=== PATIENT | male | born 1935 | race African-American/Black ===

== ENCOUNTER 2018-05-06 09:26 | Inpatient (IN) | payer OTHER ==
--- NOTE | 2018-05-06 09:41 | PDOC ---
History of Present Illness - General Chief Complaint: Chest Pain Stated Complaint: CHEST PAIN Time Seen by Provider: 05/06/18 09:40 - History of Present Illness Initial Comments: 82 year old male with history of HTN, CAD (stents in 2006 and 2011), and HLD presenting with sudden onset moderate chest pain that has since gotten better but still lingering. He woke up around 8 AM and noticed a central, non- exertional, non-radiating, non-pleuritic chest pain that co-presented with nausea. Denies SOB, lightheadedness, cough, or other symptoms. He has had chest pain like this before. His PCP is Monse and measurement operator is Alex. 05/06/18 13:02 Past History - Past Medical History Allergies/Adverse Reactions: Allergies Allergy/AdvReac Type Severity Reaction Status Date / Time No Known Drug Allergies Allergy Verified 01/10/14 18:26 Home Medications: Ambulatory Orders Aspirin [ASA -] 81 mg PO DAILY 01/10/14 Atorvastatin Ca [Lipitor -] 40 mg PO HS 01/10/14 Bimatoprost [Lumigan] 1 drop IO BID 01/10/14 Brimonidine Tartrate [Alphagan 0.15% -] 1 drop OU BID 01/10/14 Cholecalciferol (Vitamin D3) [Vitamin D-3] 2,000 unit PO DAILY 01/10/14 Dorzolamide HCl/Timolol Maleat [Cosopt Eye Drops] 5 ml OP BID 01/10/14 Losartan Potassium 100 mg PO DAILY 01/10/14 Tamsulosin HCl 0.4 mg PO DAILY 01/10/14 Vitamin A/Vitamin D2 [[place] Cod Liver Oil Sfgl] 1 each PO DAILY 01/10/14 Diltiazem HCl [Diltiazem 24Hr Cd] 120 mg PO DAILY 05/06/18 Metoprolol Succinate 50 mg PO DAILY 05/06/18 Cardiac Disorders: Yes (stents few years ago) COPD: No Diabetes: Yes Disorders: Yes (bph) HTN: Yes Hypercholesterolemia: Yes Other medical history: ENLARGE PROSTATE - Surgical History Cardiac Surgery: Yes (CATH) - Immunization History Td Vaccination: No TDAP Vaccination: No Immunization Up to Date: No (unsure) - Suicide/Smoking/Psychosocial Hx Smoking Status: No Smoking History: Never smoked Number of Cigarettes Smoked Daily: 0 Hx Alcohol Use: No Drug/Substance Use Hx: No Hx Substance Use Treatment: No Review of Systems - Review of Systems Constitutional: No: Chills, Diaphoresis, Fever, Loss of Appetite HEENTM: No: Blurred Vision, Tearing Respiratory: No: Cough, Orthopnea, Shortness of Breath Cardiac (ROS): Yes: Chest Pain. No: Irregular Heart Rate ABD/GI: Yes: Nausea. No: Diarrhea, Vomiting : No: Dysuria, Discharge Integumentary: No: Erythema, Lesions Neurological: No: Headache, Numbness, Paresthesia Psychiatric: No: Anxiety, Depression Hematologic/Lymphatic: No: Anemia, Blood Clots, Easy Bleeding *Physical Exam - Vital Signs Last Vital Signs Temp Pulse Resp BP Pulse Ox 98.1 F 9 L 17 220/112 H 05/06/18 09:30 05/06/18 09:30 05/06/18 09:30 05/06/18 09:30 - Physical Exam General Appearance: Yes: Nourished, Appropriately Dressed. No: Apparent Distress HEENT: positive: EOMI, PATTI, Normal ENT Inspection, Normal Voice Neck: positive: Trachea midline, Normal Thyroid, Supple. negative: Tender, Rigid Respiratory/Chest: positive: Lungs Clear, Normal Breath Sounds. negative: Chest Tender, Respiratory Distress, Accessory Muscle Use Cardiovascular: positive: Regular Rhythm, Regular Rate Gastrointestinal/Abdominal: positive: Normal Bowel Sounds, Flat, Soft. negative : Tender Lymphatic: negative: Adenopathy, Tenderness Musculoskeletal: positive: Normal Inspection. negative: Decreased Range of Motion Extremity: positive: Normal Capillary Refill, Normal Inspection, Normal Range of Motion. negative: Tender Integumentary: positive: Normal Color, Dry, Warm Neurologic: positive: Fully Oriented, Alert, Normal Mood/Affect, Normal Response , Motor Strength 5/5 Moderate Sedation - Procedure Monitoring Vital Signs: Procedure Monitoring Vital Signs Temperature 98.1 F 05/06/18 09:30 Pulse Rate 9 L 05/06/18 09:30 Respiratory Rate 17 05/06/18 09:30 Blood Pressure 220/112 H 05/06/18 09:30 O2 Sat by Pulse Oximetry (%) ED Treatment Course - LABORATORY CBC & Chemistry Diagram: 05/06/18 10:40 05/06/18 10:40 Medical Decision Making - Medical Decision Making 82 year old male with extensive cardiac history and suspicious chest pain story. Patient with very mild chest pain on admission and repeat interview it was resolved. Labs demonstrating CKD and troponemia to 0.07 with EKG showing rate 85, pr 174, qrs 156, [id number] with V2-V3 T wave inversions and old RBBB with St depressions in V4-V6. Repeat troponin 3 hours later demonstrated increased to 1.[address] depression in V4-V6 cleared. We relayed this to the admitting physician Dr. Hernandez and also placed another page/ call to Dr. Johnson. Tentative plan is to heparin drip if Dr. Johnson is unable to be reached. 05/06/18 14:33 Dr. Johnson responded and wants to initiate heparin drip. 05/06/18 16:09 *DC/Admit/Observation/Transfer Diagnosis at time of Disposition: Troponin I above reference range, Chest pain, rule out acute myocardial infarction - Discharge Dispostion Condition at time of disposition: Stable Decision to Admit order: Yes - Referrals - Patient Instructions - Post Discharge Activity
--- NOTE | 2018-05-06 10:06 | PDOC ---
Attending Attestation - Resident Resident Name: Chacorta Desai - ED Attending Attestation I have performed the following: I have examined & evaluated the patient, The case was reviewed & discussed with the resident, I agree w/resident's findings & plan, Exceptions are as noted - HPI HPI: 05/06/18 10:03 82y M history of CAD status post stenting, diabetes, BPH, hypertension, high cholesterol presents with complaint of intermittent chest pain for the past few days. The patient notes that he's had intermittent sharp pressure-like, nonradiating, chest pain lasting approximately 15-20 minutes before resolving for the past several days. Today the pain seemed to be worse than usual so the patient presented for evaluation. The patient denies any associated redness of breath, nausea, vomiting, diaphoresis, palpitations, lightheadedness, diarrhea, BPR, dysuria, back pain, shoulder pain, headache, dizziness. PMD dr. Shea card: Dr. Johnson - Physicial Exam PE: 05/06/18 10:28 GENERAL: The patient is awake, alert, and fully oriented, Nontoxic - in no acute distress. HEAD: Normocephalic, atraumatic. EYES: extraocular movements intact, sclera anicteric, conjunctiva clear. ENT: Normal voice, Moist mucous membranes. NECK: Normal range of motion, supple LUNGS: Breath sounds equal, clear to auscultation bilaterally. No wheezes, no rhonchi, no rales. HEART: Regular rate and rhythm, normal S1 and S2 without murmur, rub or gallop. ABDOMEN: Soft, nontender, No guarding, no rebound. . No CVA tenderness EXTREMITIES: Normal range of motion, pitting edema bl, pulses symmetrical in the radial as well as dp NEUROLOGICAL: No facial assymetry, Normal speech, PSYCH: Normal mood, normal affect. SKIN: Warm, Dry, normal turgor, - Critical Care Time Total Critical Care Time: 45 Critical Care Statement: The care of this patient involved high complexity decision making to prevent further life threatening deterioration of the patient 's condition and/or to evaluate & treat vital organ system(s) failure or risk of failure. - Medical Decision Making 05/06/18 10:29 82-year-old gentleman with multiple medical problems presenting with intermittent episodes of chest pain, she also noted significant hypertensive state that he did not take his blood pressure medicines this morning. No radiation of the pain into the back reveals extremities to suggest dissection. Concern for possible ACS, patient refusing monitoring and evaluation advisor Obtained chest x-ray including lateral, will obtain CBC CMP troponins, give aspirin Will discuss with cardiology We'll give him his by mouth hypertensive medications are blood pressure control <Otoniel Byers - Last Filed: 05/06/18 10:31> - Medical Decision Making Documentation prepared by ISABEL Fair, acting as biomedical equipment tech for Otoniel Byers MD. 05/06/18 21:49 <Inge Bynum - Last Filed: 05/06/18 21:49> Heart Score/ECG Review - ECG Impressions Comment:: 05/06/18 10:31 Twelve-lead EKG was performed and reviewed by me. There is normal sinus rhythm with a normal rate. Rate of 85 Right bundle-branch block T-wave inversions in the anterior leads V1 through V3 twi are new when compared to ekg dated jan 10 2014 <Otoniel Byers - Last Filed: 05/06/18 10:31>
[2018-05-06] MEDS ORDERED: LOSARTAN POTASSIUM 50 MG TABLET (FP) PO ONE (10:07)
[2018-05-06] MEDS ORDERED: ASPIRIN 81 MG CHEWABLE TABLETS PO ONE (10:09)
[2018-05-06] MEDS ORDERED: ASPIRIN 81 MG CHEWABLE TABLETS ONE (10:19)
[2018-05-06 11:08] LABS: BASO % 1.3 % (0-2.0); EOS % 4.7 % (0-4.5); HEMATOCRIT 30.9 % (35.4-49); HEMOGLOBIN 10.4 GM/dL (11.7-16.9); LYMPH % 8.7 % (8-40); MCH 32.1 pg (25.7-33.7); MCHC 33.7 g/dl (32.0-35.9); MEAN CELL VOLUME 95.4 fl (80-96); MEAN PLT VOLUME 8.3 fl (7.5-11.1); MONO % 7.8 % (3.8-10.2); NEUT % 77.5 % (42.8-82.8); PLATELET COUNT 169 K/MM3 (134-434); RBC 3.24 M/mm3 (4.00-5.60); RDW 15.4 % (11.9-15.9)
[2018-05-06 11:11] LABS: URINE APPEARANCE CLEAR; URINE BILIRUBIN NEGATIVE (<2.0 mg/dL); URINE COLOR STRAW; URINE GLUCOSE (UA) NEGATIVE (NEGATIVE); URINE KETONE NEGATIVE (NEGATIVE); URINE LEUK ESTERASE NEGATIVE (NEGATIVE); URINE NITRITE NEGATIVE (NEGATIVE); URINE PROTEIN 2+ (NEGATIVE); URINE UROBILINOGEN NEGATIVE mg/dL (0.2-1.0)
[2018-05-06 11:19] LABS: INR 1.06 (0.83-1.09); PROTHROMBIN TIME (PATIENT) 12.5 SEC (9.7-13.0)
[2018-05-06 11:28] LABS: ALBUMIN 3.7 g/dl (3.4-5.0); ALK PHOS 80 U/L (45-117); ANION GAP 10 MMOL/L (8-16); BILIRUBIN,TOTAL 0.4 mg/dL (0.2-1); BLOOD UREA NITROGEN 45 mg/dL (7-18); CALCIUM 8.3 mg/dL (8.5-10.1); CHLORIDE 113 mmol/L (98-107); CO2 18 mmol/L (21-32); CREATININE 2.9 mg/dL (0.55-1.3); GLUCOSE,RANDOM 96 mg/dL (74-106); MAGNESIUM 1.2 mg/dL (1.8-2.4); N-TERMINAL BNP 1686.2 pg/ml (5-450); PHOSPHOROUS 2.7 mg/dL (2.5-4.9); POTASSIUM 4.7 mmol/L (3.5-5.1); SGOT/AST 14 U/L (15-37); SGPT/ALT 16 U/L (13-61); SODIUM 142 mmol/L (136-145); TOT PROT 7.4 g/dl (6.4-8.2)
[2018-05-06] MEDS ORDERED: MAGNESIUM SULF 50% (8.12 MEQ/2 ML-1 GM VIAL) IVPB ONE ×2 (11:36→11:40)
[2018-05-06 11:41] LABS: URINE BACTERIA RARE /hpf (NONE SEEN); URINE MUCUS RARE
[2018-05-06] MEDS ORDERED: MAGNESIUM 1GM/D5W - 1 GM/100 ML IVPB IVPB ONE (11:49)
--- NOTE | 2018-05-06 15:34 | EKG ---
Test Reason : Blood Pressure : / mmHG Vent. Rate : 085 BPM Atrial Rate : 085 BPM P-R Int : 174 ms QRS Dur : 156 ms QT Int : 408 ms P-R-T Axes : 078 013 013 degrees QTc Int : 485 ms POOR DATA QUALITY, INTERPRETATION MAY BE ADVERSELY AFFECTED NORMAL SINUS RHYTHM RIGHT BUNDLE BRANCH BLOCK INFERIOR INFARCT (CITED ON OR BEFORE 23-SEP-2011) ABNORMAL ECG WHEN COMPARED WITH ECG OF 10-JAN-2014 19:49, VENT. RATE HAS INCREASED BY 35 BPM RIGHT BUNDLE BRANCH BLOCK HAS REPLACED NON-SPECIFIC INTRA-VENTRICULAR CONDUCTION BLOCK Confirmed by LUCIEN ISBELL MD ([id number]) on 05/06/2018 3:33:41 PM Referred By: Confirmed By:LUCIEN ISBELL MD
--- NOTE | 2018-05-06 15:37 | HP ---
Admitting History and Physical - Primary Care Physician PCP: Poncho Shea MD - Admission Chief Complaint: chest pressure and tingling of hands History of Present Illness: 82 year old male with history of HTN, CAD (stents in 2006 and 2011), and HLD presenting with sudden onset moderate chest pain that has since gotten better but still lingering. He woke up around 8 AM and noticed a central, non- exertional, non-radiating, non-pleuritic chest pain that co-presented with nausea. Denies SOB, lightheadedness, cough, or other symptoms. He has had chest pain like this before. His PCP is Monse and concrete mason is Alex. per patient about 2 -3 days ago he had similar episode of chest pain like today but it resolved today he was going to [employer] when he felt uncomfortable with chest pressure it went away but came back again with tingling of hands and he decided to come to ER in ER EKG change t wave inversion in v2-v3 which is new trop increased from 0.07 to 1.25 History Source: Patient, Medical Record - Past Medical History Cardiovascular: Yes: CAD, HTN, Hyperlipdemia - Smoking History Smoking history: Never smoked Aproximately how many cigarettes per day: 0 - Alcohol/Substance Use Hx Alcohol Use: No Home Medications - Allergies Allergies/Adverse Reactions: Allergies Allergy/AdvReac Type Severity Reaction Status Date / Time No Known Drug Allergies Allergy Verified 01/10/14 18:26 - Home Medications Home Medications: Ambulatory Orders Aspirin [ASA -] 81 mg PO DAILY 01/10/14 Atorvastatin Ca [Lipitor -] 40 mg PO HS 01/10/14 Bimatoprost [Lumigan] 1 drop IO BID 01/10/14 Brimonidine Tartrate [Alphagan 0.15% -] 1 drop OU BID 01/10/14 Cholecalciferol (Vitamin D3) [Vitamin D-3] 2,000 unit PO DAILY 01/10/14 Dorzolamide HCl/Timolol Maleat [Cosopt Eye Drops] 5 ml OP BID 01/10/14 RX: Losartan Potassium 100 mg PO DAILY 01/10/14 RX: Tamsulosin HCl 0.4 mg PO DAILY 01/10/14 Vitamin A/Vitamin D2 [American Cod Liver Oil Sfgl] 1 each PO DAILY 01/10/14 Diltiazem HCl [Diltiazem 24Hr Cd] 120 mg PO DAILY 05/06/18 RX: Metoprolol Succinate 50 mg PO DAILY 05/06/18 Review of Systems - Review of Systems Cardiovascular: reports: No Symptoms Respiratory: reports: No Symptoms Gastrointestinal: reports: No Symptoms Physical Examination Vital Signs: Vital Signs Temperature 98 F 05/06/18 12:33 Pulse Rate 62 05/06/18 12:33 Respiratory Rate 18 05/06/18 12:33 Blood Pressure 179/86 H 05/06/18 12:33 O2 Sat by Pulse Oximetry (%) 99 05/06/18 12:33 currently chest pain free no sob Constitutional: Yes: Calm Cardiovascular: Yes: Regular Rate and Rhythm, S1, S2 Respiratory: Yes: CTA Bilaterally Gastrointestinal: Yes: Normal Bowel Sounds, Soft Edema: No Neurological: Yes: Alert, Oriented Labs: CBC, BMP 05/06/18 10:40 05/06/18 10:40 Imaging - Results X-ray: Report Reviewed (no lung disease) Problem List - Problems (1) Chest pain Assessment/Plan: telemetry echo heparin drip statin aspirin dr Azar cardiology trend troponins- up trending will start heparin drip check magnesium level- repleted in ER Code(s): R07.9 - CHEST PAIN, UNSPECIFIED (2) CKD (chronic kidney disease) Assessment/Plan: renal consult Code(s): N18.9 - CHRONIC KIDNEY DISEASE, UNSPECIFIED (3) Glaucoma Assessment/Plan: eye drops Code(s): H40.9 - UNSPECIFIED GLAUCOMA
[2018-05-06] MEDS ORDERED: HEPARIN NA (PORCINE) 5,000 UNITS/ML 1ML VIAL IVPUSH PRN ×2 (15:44)
[2018-05-06] MEDS ORDERED: HEPARIN NA (PORCINE) 5,000 UNITS/ML 1ML VIAL ONE (16:08)
[2018-05-06] MEDS ORDERED: HEPARIN INFUSION - 25,000 UNITS/500 ML INFUS.BAG IVPB ONE (16:08)
--- NOTE | 2018-05-06 16:19 | CON.CARD ---
Consult Consult Specialty:: Cardiology Referred by:: Medicine Reason for Consultation:: chest pain - History of Present Illness Chief Complaint: chest pain History of Present Illness: 82M h/o HTN, CAD s/p stents 2006 and 2011, HLD p/w chest pain. Started this AM , substernal, nonradiating chest pain associated wtih nausea. no dyspnea, palps , edema. Had a similar episode of chest pain a few days ago. Trop 0.07 ->1.25 in ER, new TWI on EKG. Started on heparin gtt. Also noted to be hypertensive, BP 220/112 in ER. Per patient had normal nuclear stress in the office 1-2 months ago, has had chest pain/pressure on and off for a couple of months. Patient of Dr. Johnson. - Past Medical History Cardio/Vascular: Yes: CAD, HTN, Hyperlipdemia - Alcohol/Substance Use Hx Alcohol Use: No - Smoking History Smoking history: Never smoked Aproximately how many cigarettes per day: 0 Home Medications - Allergies Allergies/Adverse Reactions: Allergies Allergy/AdvReac Type Severity Reaction Status Date / Time No Known Drug Allergies Allergy Verified 01/10/14 18:26 - Home Medications Home Medications: Ambulatory Orders Aspirin [ASA -] 81 mg PO DAILY 01/10/14 Atorvastatin Ca [Lipitor -] 40 mg PO HS 01/10/14 Bimatoprost [Lumigan] 1 drop IO BID 01/10/14 Brimonidine Tartrate [Alphagan 0.15% -] 1 drop OU BID 01/10/14 Cholecalciferol (Vitamin D3) [Vitamin D-3] 2,000 unit PO DAILY 01/10/14 Dorzolamide HCl/Timolol Maleat [Cosopt Eye Drops] 5 ml OP BID 01/10/14 Losartan Potassium 100 mg PO DAILY 01/10/14 Tamsulosin HCl 0.4 mg PO DAILY 01/10/14 Vitamin A/Vitamin D2 [[place] Cod Liver Oil Sfgl] 1 each PO DAILY 01/10/14 Diltiazem HCl [Diltiazem 24Hr Cd] 120 mg PO DAILY 05/06/18 Metoprolol Succinate 50 mg PO DAILY 05/06/18 Family Disease History - Family Disease History Family History: Unremarkable Review of Systems - Review of Systems Constitutional: reports: No Symptoms Eyes: reports: No Symptoms HENT: reports: No Symptoms Neck: reports: No Symptoms Cardiovascular: reports: Chest Pain Respiratory: reports: No Symptoms Gastrointestinal: reports: No Symptoms Genitourinary: reports: No Symptoms Musculoskeletal: reports: No Symptoms Integumentary: reports: No Symptoms Neurological: reports: No Symptoms Endocrine: reports: No Symptoms Hematology/Lymphatic: reports: No Symptoms Psychiatric: reports: No Symptoms Vital Signs: Vital Signs Temperature 98 F 05/06/18 12:33 Pulse Rate 62 05/06/18 12:33 Respiratory Rate 18 05/06/18 12:33 Blood Pressure 179/86 H 05/06/18 12:33 O2 Sat by Pulse Oximetry (%) 99 05/06/18 12:33 Constitutional: Yes: No Distress, Calm Eyes: Yes: Conjunctiva Clear, EOM Intact HENT: Yes: Atraumatic, Normocephalic Neck: Yes: Supple, Trachea Midline Respiratory: Yes: Regular, CTA Bilaterally Gastrointestinal: Yes: Normal Bowel Sounds, Soft Cardiovascular: Yes: Regular Rate and Rhythm JVD: No Carotid Bruit: No PMI: Non-Displaced Heart Sounds: Yes: S1, S2 Musculoskeletal: No: Back Pain Extremities: No: Cold Edema: No Peripheral Pulses WNL: Yes Peripheral Pulses: 2+ Left Doralis Pedis, 2+ Right Dorsalis Pedis Integumentary: No: Jaundice Neurological: Yes: Alert, Oriented Psychiatric: No: Agitated - Other Data Labs, Other Data: CBC, BMP 05/06/18 10:40 05/06/18 10:40 INR, PTT INR 1.06 (0.83-1.09) 05/06/18 10:40 Troponin, BNP 05/06/18 05/06/18 10:40 14:30 Troponin I 0.07 H 1.25 H* B-Natriuretic Peptide 1686.2 H Troponin, BNP 05/06/18 05/06/18 10:40 14:30 Troponin I 0.07 H 1.25 H* B-Natriuretic Peptide 1686.2 H Assessment/Plan EKG: sinus, old inf infarct, RBBB CXR: no acute process 82M h/o HTN, CAD s/p stents 2006 and 2011, HLD p/w chest pain NSTEMI, hx CAD - trop 0.07 ->1.25 - currently chest pain free - on arrival to ER BP 220/110, now improved, unremarkable recent stress test - continue heparin gtt, increase atorvastatin to 80 mg daily, cont aspirin, bb - Cr 3.0 - continue medical management, monitor Cr and consider cath if renal function improves HTN - improved on home meds, continue HLD - cont statin CKD - Cr similar to prior values - nephrology consulted
[2018-05-06] MEDS: HEPARIN INFUSION - 25,000 UNITS/500 ML INFUS.BAG IV SCH (16:23)
[2018-05-06 19:55] LABS: MAGNESIUM 1.4 mg/dL (1.8-2.4)
[2018-05-06] MEDS ORDERED: ATORVASTATIN CA 40 MG TABLET (FP) PO SCH (22:00)
[2018-05-06] MEDS: ATORVASTATIN CA 40 MG TABLET (FP) PO SCH (23:20)
[2018-05-06] MEDS: BRIMONIDINE TARTRATE 0.15% OPHTHALMIC 5 ML BOTTLE OU SCH (23:45)
[2018-05-07] MEDS: SODIUM CHLORIDE 500 ML IV SCH ×2 (01:10→22:30)
[2018-05-07 01:26] VITALS: BMI 27.3
[2018-05-07] MEDS ORDERED: METOPROLOL TARTRATE 50 MG TABLET (FP) PO ONE (06:00)
[2018-05-07 07:35] LABS: EOS % 9.2 % (0-4.5); HEMATOCRIT 27.2 % (35.4-49); HEMOGLOBIN 9.2 GM/dL (11.7-16.9); LYMPH % 18.8 % (8-40); MCH 31.7 pg (25.7-33.7); MCHC 33.7 g/dl (32.0-35.9); MEAN PLT VOLUME 8.3 fl (7.5-11.1); MONO % 14.9 % (3.8-10.2); NEUT % 56.1 % (42.8-82.8); PLATELET COUNT 149 K/MM3 (134-434); RDW 15.2 % (11.9-15.9); WHITE BLOOD COUNT 3.4 K/mm3 (4.0-10.0)
[2018-05-07 07:50] LABS: INR 1.07 (0.83-1.09); PROTHROMBIN TIME (PATIENT) 12.6 SEC (9.7-13.0)
[2018-05-07 07:52] LABS: ACTIVATED PTT 53.1 SECONDS (25.2-36.5)
[2018-05-07 09:01] LABS: ALK PHOS 68 U/L (45-117); ANION GAP 8 MMOL/L (8-16); BILIRUBIN,TOTAL 0.5 mg/dL (0.2-1); BLOOD UREA NITROGEN 50 mg/dL (7-18); CALCIUM 7.9 mg/dL (8.5-10.1); CHLORIDE 112 mmol/L (98-107); CHOLESTEROL 159 mg/dL (50-200); CO2 19 mmol/L (21-32); CREATININE 2.8 mg/dL (0.55-1.3); GLUCOSE,RANDOM 84 mg/dL (74-106); HDL CHOLESTEROL 66 mg/dL (40-60); MAGNESIUM 1.6 mg/dL (1.8-2.4); N-TERMINAL BNP 3912.3 pg/ml (5-450); PHOSPHOROUS 2.9 mg/dL (2.5-4.9); POTASSIUM 4.3 mmol/L (3.5-5.1); SGOT/AST 15 U/L (15-37); SGPT/ALT 12 U/L (13-61); SODIUM 139 mmol/L (136-145); TOT PROT 6.2 g/dl (6.4-8.2); TRIGLYCERIDES 39 mg/dL (0-150)
[2018-05-07] MEDS ORDERED: PT OWN MED DRAWER 7, Y5N ONE (10:06)
[2018-05-07] MEDS: TAMSULOSIN HCL 0.4 MG CAP PO SCH (10:08)
[2018-05-07] MEDS: ASPIRIN 81 MG CHEWABLE TABLETS PO SCH (10:08)
--- NOTE | 2018-05-07 10:16 | ECHO ---
Name: TEJAS BYRD Exam:Adult Echocardiogram Study Date: 05/07/2018 09:24 AM Age: 82 yrs Reason For Study: Wall Motion Height: 67 in Weight: 185 lb BSA: 2.0 m2 MMode/2D Measurements & Calculations IVSd: 1.2 cm Ao root diam: 2.8 cm LVIDd: 4.7 cm LA dimension: 3.3 cm LVIDs: 3.4 cm LVPWd: 1.0 cm LVPWs: 1.2 cm EDV(Teich): 104.7 ml ESV(Teich): 46.7 ml LVOT diam: 2.1 cm Doppler Measurements & Calculations MV E max sarbjit: 74.0 cm/sec Ao V2 max: 154.8 cm/sec MV A max sarbjit: 95.8 cm/sec Ao max P.6 mmHg MV E/A: 0.77 AI P1/2t: 521.0 msec TABBY(V,D): 1.6 cm2 AI max sarbjit: 500.8 cm/sec LV V1 max P.2 mmHg AI max P.6 mmHg LV V1 max: 74.5 cm/sec AI dec slope: 281.5 cm/sec2 PA V2 max: 83.5 cm/sec PI end-d sarbjit: 96.4 cm/sec PA max P.8 mmHg Med Peak E' Sarbjit: 6.1 cm/sec Med E/e': 12.1 Lat Peak E' Sarbjit: 5.1 cm/sec Lat E/e': 14.6 Left Ventricle There is mild concentric left ventricular hypertrophy. Left ventricular systolic function is normal. Ejection Fraction = 55-60%. Right Ventricle The right ventricle is normal in size and function. Atria Normal left and right atrial size and function. Mitral Valve The mitral valve is normal in structure and function. There is no mitral valve stenosis. There is mil d mitral regurgitation. Tricuspid Valve The tricuspid valve is normal in structure and function. There is mild tricuspid regurgitation. Aortic Valve There is moderate aortic sclerosis.;. No hemodynamically significant valvular aortic stenosis. Mild a ortic regurgitation. Pulmonic Valve The pulmonic valve is not well seen, but is grossly normal. There is no pulmonic valvular stenosis. M ild pulmonic valvular regurgitation. Great Vessels The aortic root is normal size. Pericardium/Pleura There is no pericardial effusion. Interpretation Summary There is mild concentric left ventricular hypertrophy. Left ventricular systolic function is normal. Ejection Fraction = 55-60%. The right ventricle is normal in size and function. There is mild mitral regurgitation. There is mild tricuspid regurgitation. There is moderate aortic sclerosis.; Mild aortic regurgitation. There is no pericardial effusion. MD Cowart *Alejandro 05/07/2018 10:15 AM
[2018-05-07] MEDS: HEPARIN INFUSION - 25,000 UNITS/500 ML INFUS.BAG IV SCH ×2 (10:33→15:28)
--- NOTE | 2018-05-07 10:52 | PN ---
Progress Note (short form) - Note Progress Note: s: no cp sob palps dizzy o: Vital Signs Period Temp Pulse Resp BP Sys/Stinson Pulse Ox Last 24 Hr 97.8 F-99.1 F 54-74 14-23 127-179/64-88 98-99 Constitutional: Yes: No Distress, Calm Eyes: Yes: Conjunctiva Clear Neck: Yes: Supple, Trachea Midline Respiratory: Yes: Regular, CTA Bilaterally Gastrointestinal: Yes: Normal Bowel Sounds, Soft Cardiovascular: Yes: Regular Rate and Rhythm JVD: No Heart Sounds: Yes: S1, S2 Musculoskeletal: No: Back Pain Extremities: No: Cold Edema: No Integumentary: No: Jaundice Neurological: Yes: Alert, Oriented Psychiatric: No: Agitated Current Medications Generic Name Dose Route Start Last Admin Trade Name Freq PRN Reason Stop Dose Admin Amlodipine Besylate 5 mg 05/07/18 11:00 Norvasc - PO DAILY JOSE DANIEL Aspirin 81 mg 05/07/18 10:00 05/07/18 10:08 Asa - PO 81 mg DAILY JOSE DANIEL Administration Atorvastatin Calcium 80 mg 05/06/18 22:00 05/06/18 23:20 Lipitor - PO 80 mg HS JOSE DANIEL Administration Brimonidine Tartrate 1 drop 05/06/18 22:00 05/06/18 23:45 Alphagan 0.15% - OU 1 drop BID JOSE DANIEL Administration Heparin Sodium (Porcine) 1,000 unit 05/06/18 15:44 Heparin - IVPUSH PRN PRN Heparin Heparin Sodium (Porcine) 5,000 unit 05/06/18 15:44 05/06/18 16:23 Heparin - IVPUSH 5,000 unit PRN PRN Administration Heparin Heparin Sodium/Dextrose 25,000 units in 500 mls @ 16 mls/hr 05/06/18 15:45 10:33 Heparin Infusion - IV 800 units/hr TITR JOSE DANIEL 16 mls/hr Administration Protocol 800 UNITS/HR Sodium Chloride 500 mls @ 75 mls/hr 05/06/18 17:00 05/07/18 01:10 Normal Saline - IV 75 mls/hr ASDIR JOSE DANIEL Administration Metoprolol Succinate 50 mg 05/07/18 10:00 05/07/18 10:08 Toprol Xl - PO 50 mg DAILY JOSE DANIEL Administration Tamsulosin HCl 0.4 mg 05/07/18 08:30 05/07/18 10:08 Flomax - PO 0.4 mg DAILY@0830 JOSE DANIEL Administration CBC, BMP 05/07/18 06:40 05/07/18 06:40 EKG: sinus, old inf infarct, RBBB CXR: no acute process tele: sr echo 04/2018: mild lvh, nl lv/rv, mild mr/tr/ar mibi 01/2018: nl mpi, nl lvef Assessment/Plan 82M h/o HTN, CAD s/p stents 2006 and 2011, HLD p/w chest pain NSTEMI, hx CAD - trop with mild elevation, peaked in 2s, now trending down - currently chest pain free - on arrival to ER BP 220/110 - recent nuclear stress test was normal so possibly trop elevation due to htn urgency vs acs with balanced ischemia giving false negative stress test. Ideally would pursue cardiac cath to determine if significant cad is present but given his ckd there is added risk due to possible WILLIE. Will cont to treat as nstemi with ac. Will continue to tx bp and add norvasc today for better control. For now continuing ivfs to see if cr can improve and make WILLIE less of a risk. If no significant cr improvement would continue with med rx and see if can control sxs. -cont tele HTN -added norvasc for better control HLD - cont statin CKD - Cr similar to prior values - nephrology consulted
[2018-05-07] MEDS: amLODIPine BESYLATE 5 MG TABLET (FP) PO SCH ×2 (11:38→11:55)
[2018-05-07] MEDS ORDERED: MAGNESIUM SULF 50% (8.12 MEQ/2 ML-1 GM VIAL) IVPB ONE (12:25)
--- NOTE | 2018-05-07 12:26 | PN ---
Progress Note, Physician Chief Complaint: patient seen and examined chest pain is better on heparin drip troponin uptrending - Current Medication List Current Medications: Active Medications Amlodipine Besylate (Norvasc -) 5 mg PO DAILY [facility] Last Admin: 05/07/18 11:55 Dose: 5 mg Aspirin (Asa -) 81 mg PO DAILY [facility] Last Admin: 05/07/18 10:08 Dose: 81 mg Atorvastatin Calcium (Lipitor -) 80 mg PO HS [facility] Last Admin: 05/06/18 23:20 Dose: 80 mg Brimonidine Tartrate (Alphagan 0.15% -) 1 drop OU BID [facility] Last Admin: 05/06/18 23:45 Dose: 1 drop Heparin Sodium (Porcine) (Heparin -) 1,000 unit IVPUSH PRN PRN PRN Reason: Heparin Heparin Sodium (Porcine) (Heparin -) 5,000 unit IVPUSH PRN PRN PRN Reason: Heparin Last Admin: 05/06/18 16:23 Dose: 5,000 unit Heparin Sodium/Dextrose (Heparin Infusion -) 25,000 units in 500 mls @ 16 mls/ hr IV TITR JOSE DANIEL; Protocol Last Admin: 05/07/18 10:33 Dose: 800 units/hr, 16 mls/hr Sodium Chloride (Normal Saline -) 500 mls @ 75 mls/hr IV ASDIR [facility] Last Admin: 05/07/18 01:10 Dose: 75 mls/hr Magnesium Sulfate (Magnesium Sulfate) 1 gm IVPB ONCE ONE Stop: 05/07/18 12:26 Metoprolol Succinate (Toprol Xl -) 50 mg PO DAILY [facility] Last Admin: 05/07/18 10:08 Dose: 50 mg Tamsulosin HCl (Flomax -) 0.4 mg PO DAILY@0830 [facility] Last Admin: 05/07/18 10:08 Dose: 0.4 mg - Objective Vital Signs: Vital Signs Temperature 97.8 F 05/07/18 10:00 Pulse Rate 46 L 05/07/18 11:45 Respiratory Rate 20 05/07/18 11:45 Blood Pressure 182/75 H 05/07/18 11:45 O2 Sat by Pulse Oximetry (%) 98 05/07/18 09:00 Constitutional: Yes: Calm Cardiovascular: Yes: Regular Rate and Rhythm, S1, S2 Respiratory: Yes: CTA Bilaterally Gastrointestinal: Yes: Normal Bowel Sounds, Soft Neurological: Yes: Alert, Oriented Labs: CBC, BMP 05/07/18 06:40 05/07/18 06:40 INR, PTT INR 1.07 (0.83-1.09) 05/07/18 06:40 Problem List - Problems (1) Chest pain Assessment/Plan: telemetry echo LV hypertrophy and ejection fraction 55-60 percent heparin drip statin dose increased aspirin given CKD cardiac cath zainab be difficult Code(s): R07.9 - CHEST PAIN, UNSPECIFIED (2) CKD (chronic kidney disease) Assessment/Plan: renal consult Code(s): N18.9 - CHRONIC KIDNEY DISEASE, UNSPECIFIED (3) Glaucoma Assessment/Plan: eye drops Code(s): H40.9 - UNSPECIFIED GLAUCOMA (4) HTN (hypertension) Assessment/Plan: norvasc added Code(s): I10 - ESSENTIAL (PRIMARY) HYPERTENSION
--- NOTE | 2018-05-07 12:46 | EKG ---
Test Reason : Blood Pressure : / mmHG Vent. 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
--- NOTE | 2018-05-07 13:01 | CONSULT ---
Consult - text type - Consultation Consultation Note: Renal Consult for CKD and contrast nephropathy risk stratification This is a 82 year old gentleman with hx of CKD stage 4, hypertension, CAD who presented with substernal chest pain and found to have NSTEMI. Baseline Cr 2.9-3. Pt now is chest pain free. Has no sob, fever, chills , N/V/D. Making urine. No LE swelling. No flank pain. Denies any leg swelling. Now on heparin gtt and IVF. PMHx: as above Allergies: NKDA Family Hx: NC ROS: as per HPI, all other ros negative Home Meds: Home Medications Medication Instructions Recorded Aspirin [ASA -] 81 mg PO DAILY 01/10/14 Atorvastatin Ca [Lipitor -] 40 mg PO HS 01/10/14 Bimatoprost [Lumigan] 1 drop IO BID 01/10/14 Brimonidine Tartrate [Alphagan 1 drop OU BID 01/10/14 0.15% -] Cholecalciferol (Vitamin D3) 2,000 unit PO DAILY 01/10/14 [Vitamin D-3] Dorzolamide HCl/Timolol Maleat 5 ml OP BID 01/10/14 [Cosopt Eye Drops] Losartan Potassium 100 mg PO DAILY 01/10/14 Tamsulosin HCl 0.4 mg PO DAILY 01/10/14 Vitamin A/Vitamin D2 [Kyrgyz 1 each PO DAILY 01/10/14 Cod Liver Oil Sfgl] Diltiazem HCl [Diltiazem 24Hr Cd] 120 mg PO DAILY 05/06/18 Metoprolol Succinate 50 mg PO DAILY 05/06/18 Vital Signs Temperature 97.8 F 05/07/18 10:00 Pulse Rate 46 L 05/07/18 11:45 Respiratory Rate 20 05/07/18 11:45 Blood Pressure 182/75 H 05/07/18 11:45 O2 Sat by Pulse Oximetry (%) 98 05/07/18 09:00 Intake & Output 05/04/18 05/05/18 05/06/18 05/07/18 23:59 23:59 23:59 23:59 Intake Total 75 607 Balance 75 607 Weight 79.016 kg NAD awake and alert neck supple RRR, No M/R CTA, no rales or wheeze soft NT/ND no LE edema, clubbing or cyanosis no bladder distension CBC, BMP 05/07/18 06:40 05/07/18 06:40 Current Medications Amlodipine Besylate (Norvasc -) 5 mg PO DAILY [facility] Last Admin: 05/07/18 11:55 Dose: 5 mg Aspirin (Asa -) 81 mg PO DAILY [facility] Last Admin: 05/07/18 10:08 Dose: 81 mg Atorvastatin Calcium (Lipitor -) 80 mg PO HS [facility] Last Admin: 05/06/18 23:20 Dose: 80 mg Brimonidine Tartrate (Alphagan 0.15% -) 1 drop OU BID [facility] Last Admin: 05/06/18 23:45 Dose: 1 drop Heparin Sodium (Porcine) (Heparin -) 1,000 unit IVPUSH PRN PRN PRN Reason: Heparin Heparin Sodium (Porcine) (Heparin -) 5,000 unit IVPUSH PRN PRN PRN Reason: Heparin Last Admin: 05/06/18 16:23 Dose: 5,000 unit Heparin Sodium/Dextrose (Heparin Infusion -) 25,000 units in 500 mls @ 16 mls/ hr IV TITR [facility]; Protocol Last Admin: 05/07/18 10:33 Dose: 800 units/hr, 16 mls/hr Sodium Chloride (Normal Saline -) 500 mls @ 75 mls/hr IV ASDIR [facility] Last Admin: 05/07/18 01:10 Dose: 75 mls/hr Metoprolol Succinate (Toprol Xl -) 50 mg PO DAILY [facility] Last Admin: 05/07/18 10:08 Dose: 50 mg Tamsulosin HCl (Flomax -) 0.4 mg PO DAILY@0830 [facility] Last Admin: 05/07/18 10:08 Dose: 0.4 mg 82 year old gentleman with hx of CKD stage 4, hypertension, CAD who presented with substernal chest pain and found to have NSTEMI. Baseline Cr 2.9-3. #NSTEMI #hx of CAD #CKD stage 4 #Contrast Nephropathy risk stratification #Hypertension #BPH Continue heparin gtt as per cardiology on IVF in an attempt to lower serum Cr however pt at baseline Cr now Calculated risk on WILLIE is 26% and risk of immediate dialysis is 1% The patient and family were made aware Continue flomax Trend renal function and electrolytes daily Thank you Carlos Avery DO
--- NOTE | 2018-05-07 13:01 | EKG ---
Test Reason : Blood Pressure : / mmHG Vent. Rate : 054 BPM Atrial Rate : 054 BPM P-R Int : 174 ms QRS Dur : 148 ms QT Int : 456 ms P-R-T Axes : 069 -01 -06 degrees QTc Int : 432 ms SINUS BRADYCARDIA RIGHT BUNDLE BRANCH BLOCK INFERIOR INFARCT (CITED ON OR BEFORE 23-SEP-2011) ABNORMAL ECG WHEN COMPARED WITH ECG OF 06-MAY-2018 09:56, VENT. RATE HAS DECREASED BY 31 BPM QT HAS SHORTENED Confirmed by JULIO RUSSELL, RELL ([id number]) on 05/07/2018 1:01:12 PM Referred By: Confirmed By:RELL KIM MD
[2018-05-07] MEDS: BRIMONIDINE TARTRATE 0.15% OPHTHALMIC 5 ML BOTTLE OU SCH ×2 (15:28→22:25)
[2018-05-07] MEDS: ATORVASTATIN CA 40 MG TABLET (FP) PO SCH (22:23)
[2018-05-08] MEDS: amLODIPine BESYLATE 5 MG TABLET (FP) PO SCH (06:09)
[2018-05-08 08:01] LABS: ANION GAP 7 MMOL/L (8-16); BLOOD UREA NITROGEN 47 mg/dL (7-18); CALCIUM 7.8 mg/dL (8.5-10.1); CHLORIDE 112 mmol/L (98-107); CO2 20 mmol/L (21-32); CREATININE 2.7 mg/dL (0.55-1.3); GLUCOSE,RANDOM 79 mg/dL (74-106); MAGNESIUM 1.6 mg/dL (1.8-2.4); POTASSIUM 4.6 mmol/L (3.5-5.1); SODIUM 139 mmol/L (136-145)
--- NOTE | 2018-05-08 08:52 | PN ---
Progress Note, Physician Chief Complaint: cp History of Present Illness: no more chest tightness/constriction angina sx no other cp no sob no palpit no syncope no cigs - Current Medication List Current Medications: Active Medications Amlodipine Besylate (Norvasc -) 5 mg PO DAILY [facility] Last Admin: 05/08/18 06:09 Dose: 5 mg Aspirin (Asa -) 81 mg PO DAILY [facility] Last Admin: 05/07/18 10:08 Dose: 81 mg Atorvastatin Calcium (Lipitor -) 80 mg PO HS [facility] Last Admin: 05/07/18 22:23 Dose: 80 mg Brimonidine Tartrate (Alphagan 0.15% -) 1 drop OU BID [facility] Last Admin: 05/07/18 22:25 Dose: 1 drop Heparin Sodium (Porcine) (Heparin -) 1,000 unit IVPUSH PRN PRN PRN Reason: Heparin Heparin Sodium (Porcine) (Heparin -) 5,000 unit IVPUSH PRN PRN PRN Reason: Heparin Last Admin: 05/06/18 16:23 Dose: 5,000 unit Heparin Sodium/Dextrose (Heparin Infusion -) 25,000 units in 500 mls @ 16 mls/ hr IV TITR [facility]; Protocol Last Admin: 05/07/18 15:28 Dose: 800 units/hr, 16 mls/hr Sodium Chloride (Normal Saline -) 500 mls @ 75 mls/hr IV ASDIR [facility] Last Admin: 05/07/18 22:30 Dose: 75 mls/hr Metoprolol Succinate (Toprol Xl -) 50 mg PO DAILY [facility] Last Admin: 05/07/18 10:08 Dose: 50 mg Tamsulosin HCl (Flomax -) 0.4 mg PO DAILY@0830 [facility] Last Admin: 05/07/18 10:08 Dose: 0.4 mg - Objective Vital Signs: Vital Signs Temperature 97.6 F 05/08/18 06:00 Pulse Rate 46 L 05/08/18 06:00 Respiratory Rate 18 05/08/18 06:00 Blood Pressure 187/76 H 05/08/18 06:00 O2 Sat by Pulse Oximetry (%) 100 05/07/18 20:55 Constitutional: Yes: No Distress, Calm Eyes: No: Sclera Icterus HENT: No: Nasal Congestion Cardiovascular: Yes: Regular Rate and Rhythm, S1, S2, Other (PMI non diplaced). No: Gallop, Murmur Respiratory: Yes: CTA Bilaterally. No: Accessory Muscle Use, Rales, Wheezes Gastrointestinal: Yes: Normal Bowel Sounds, Soft. No: Tenderness Musculoskeletal: Yes: Other (No kyphosis) Extremities: No: Cold Edema: Yes (1+ ankles) Integumentary: No: Jaundice Neurological: Yes: Alert, Oriented (x3) Psychiatric: No: Agitated Labs: CBC, BMP 05/07/18 06:40 05/08/18 07:00 INR, PTT INR 1.07 (0.83-1.09) 05/07/18 06:40 Assessment/Plan EKG: sinus, old inf infarct, RBBB CXR: no acute process tele: NSR with sinus arrhythmia/sinus corrie (to 40 bpm) echo 04/2018: mild lvh, nl lv/rv, mild mr/tr/ar mibi 01/2018: nl mpi, nl lvef Assessment/Plan 82M h/o HTN, CAD s/p stents 2006 and 2011, HLD p/w chest pain NSTEMI, hx CAD - trop peaked at 2s-->trending down - angina sx (chest tightness/squeezing) began several mo ago off and on--no recurrence since admit - ? related to HTN emergency - normal nuclear stress test 3 mo ago (including nl EF. no TID mentioned above)- -? balanced ischemia (MVDz), vs plaque rupture of previously nonobstructive dz - high risk for WILLIE, hence ischemia-driven strategy is likely the lowest risk option for him - medically managing: aspirin, UFH gtt, hi intensity statin, low dose BB - add iso mono for angina and BP - H/H stable--add plavix - d/w'd pt the options of cath for definitive rule out of high risk anatomy (if willing to accept high risk of worsening renal fxn and lower likelihood of HD) vs repeat ischemia evaluation for risk stratification (if willing to accept some small uncertainty regarding underlying cor anatomy/risk). disc'd the pros and cons of each approach (including overall slightly lower absolute risk of [place]/ with invasive tx of NSTEMI)-- he states he strongly wishes to avoid HD in his lifetime and hence does not want to do any procedures that increases this risk, as long as no clinical signs that he is high risk and has no choice but to pursue invasive strategy. - will rpt pharm MPI on thursday and defer cath if no high risk findings and pt's angina remains well controlled - cont tele HTN with hypertensive emergency -BP improved but remains uncontrolled -advanced CKD--holding RAAS blockers -bradycardia to 40s-50s here--given sinus arrhythmia appearance this is physiologic vagal tone and not risk for syncope. continue BB but low dose: change toprol 50 qd to lopressor 25 bid -increase amlodip to 10 -start hydral 25 bid -start nitrates, as above HLD - cont statin CKD - baseline creat 2.9-3.5 - renal following. IVF stopped given no improvement, renal fxn at baseline, and pedal edema
[2018-05-08] MEDS: ASPIRIN 81 MG CHEWABLE TABLETS PO SCH (09:28)
[2018-05-08] MEDS: TAMSULOSIN HCL 0.4 MG CAP PO SCH (09:28)
[2018-05-08] MEDS: hydrALAZINE HCL 25 MG TABLET (FP) PO SCH ×2 (09:28→22:12)
[2018-05-08] MEDS: amLODIPine BESYLATE 10 MG TABLET (FP) PO SCH (09:28)
[2018-05-08] MEDS: BRIMONIDINE TARTRATE 0.15% OPHTHALMIC 5 ML BOTTLE OU SCH ×2 (09:29→22:10)
--- NOTE | 2018-05-08 09:42 | PN ---
Progress Note (short form) - Note Progress Note: Renal follow up for CKD Pt seen and examined at the bedside no acute complaints denies any acute complaints no sob, cp, abd pain, N/V on IVF and heparin gtt BP was high overnight Vital Signs Temperature 97.6 F 05/08/18 06:00 Pulse Rate 46 L 05/08/18 06:00 Respiratory Rate 18 05/08/18 06:00 Blood Pressure 187/76 H 05/08/18 06:00 O2 Sat by Pulse Oximetry (%) 100 05/07/18 20:55 Intake & Output 05/05/18 05/06/18 05/07/18 05/08/18 23:59 23:59 23:59 23:59 Intake Total 75 1699 1292 Output Total 800 Balance 75 899 1292 Weight 79.016 kg NAD awake and alert neck supple RRR, No M/R CTA, no rales or wheeze soft NT/ND + edema in LE CBC, BMP 05/08/18 07:00 Current Medications Amlodipine Besylate (Norvasc -) 10 mg PO DAILY [facility] Last Admin: 05/08/18 09:28 Dose: 10 mg Aspirin (Asa -) 81 mg PO DAILY [facility] Last Admin: 05/08/18 09:28 Dose: 81 mg Atorvastatin Calcium (Lipitor -) 80 mg PO HS [facility] Last Admin: 05/07/18 22:23 Dose: 80 mg Brimonidine Tartrate (Alphagan 0.15% -) 1 drop OU BID [facility] Last Admin: 05/08/18 09:29 Dose: 1 drop Heparin Sodium (Porcine) (Heparin -) 1,000 unit IVPUSH PRN PRN PRN Reason: Heparin Heparin Sodium (Porcine) (Heparin -) 5,000 unit IVPUSH PRN PRN PRN Reason: Heparin Last Admin: 05/06/18 16:23 Dose: 5,000 unit Hydralazine HCl (Apresoline -) 25 mg PO BID [facility] [place] Last Admin: 05/08/18 09:28 Dose: 25 mg Heparin Sodium/Dextrose (Heparin Infusion -) 25,000 units in 500 mls @ 16 mls/ hr IV TITR [facility]; Protocol Last Admin: 05/07/18 15:28 Dose: 800 units/hr, 16 mls/hr Tamsulosin HCl (Flomax -) 0.4 mg PO DAILY@0830 [facility] Last Admin: 05/08/18 09:28 Dose: 0.4 mg 82 year old gentleman with hx of CKD stage 4, hypertension, CAD who presented with substernal chest pain and found to have NSTEMI. Baseline Cr 2.9-3. #NSTEMI #hx of CAD #CKD stage 4 #Contrast Nephropathy risk stratification #Hypertension #BPH Renal function stable at this time will discontinue IVF because of high BP and development of lower extremity edema Calculated risk on WILLIE is 26% and risk of immediate dialysis is 1% Continue heparin gtt as per cardiology stress test vs cardiac cath to be discussed by cardiology Trend renal function and electrolytes daily amlodipine titrated as per cardiology Thank you Carlos Avery DO
[2018-05-08 09:52] LABS: BASO % 1.1 % (0-2.0); EOS % 11.4 % (0-4.5); HEMATOCRIT 29.2 % (35.4-49); HEMOGLOBIN 9.9 GM/dL (11.7-16.9); LYMPH % 23.6 % (8-40); MCH 32.7 pg (25.7-33.7); MCHC 34.1 g/dl (32.0-35.9); MEAN PLT VOLUME 9.2 fl (7.5-11.1); MONO % 16.3 % (3.8-10.2); NEUT % 47.6 % (42.8-82.8); PLATELET COUNT 144 K/MM3 (134-434); RBC 3.04 M/mm3 (4.00-5.60); RDW 15.3 % (11.9-15.9); WHITE BLOOD COUNT 3.4 K/mm3 (4.0-10.0)
[2018-05-08 11:46] LABS: ANION GAP 7 MMOL/L (8-16); BLOOD UREA NITROGEN 47 mg/dL (7-18); CHLORIDE 112 mmol/L (98-107); CO2 21 mmol/L (21-32); CREATININE 2.7 mg/dL (0.55-1.3); GLUCOSE,RANDOM 81 mg/dL (74-106); POTASSIUM 4.5 mmol/L (3.5-5.1); SODIUM 140 mmol/L (136-145)
[2018-05-08] MEDS: ISOSORBIDE MONONITRATE 30 MG TAB.SR.24H (FP) PO SCH (14:33)
[2018-05-08] MEDS: METOPROLOL TARTRATE 25 MG TABLET (FP) PO SCH ×2 (14:33→22:12)
[2018-05-08] MEDS: CLOPIDOGREL BISULFATE 75 MG TABLET (FP) PO SCH (14:33)
[2018-05-08] MEDS: HEPARIN INFUSION - 25,000 UNITS/500 ML INFUS.BAG IV SCH ×2 (15:45→22:17)
--- NOTE | 2018-05-08 15:58 | PN ---
Progress Note, Physician Chief Complaint: NSTEMI CKD History of Present Illness: Previous notes and events reviewed awake and alert NAD denies chest pain, palpitations, dizziness - Current Medication List Current Medications: Active Medications Amlodipine Besylate (Norvasc -) 10 mg PO DAILY [facility] Last Admin: 05/08/18 09:28 Dose: 10 mg Aspirin (Asa -) 81 mg PO DAILY [facility] Last Admin: 05/08/18 09:28 Dose: 81 mg Atorvastatin Calcium (Lipitor -) 80 mg PO HS [facility] Last Admin: 05/07/18 22:23 Dose: 80 mg Brimonidine Tartrate (Alphagan 0.15% -) 1 drop OU BID [facility] Last Admin: 05/08/18 09:29 Dose: 1 drop Clopidogrel Bisulfate (Plavix -) 75 mg PO DAILY [facility] Last Admin: 05/08/18 14:33 Dose: 75 mg Heparin Sodium (Porcine) (Heparin -) 1,000 unit IVPUSH PRN PRN PRN Reason: Heparin Heparin Sodium (Porcine) (Heparin -) 5,000 unit IVPUSH PRN PRN PRN Reason: Heparin Last Admin: 05/06/18 16:23 Dose: 5,000 unit Hydralazine HCl (Apresoline -) 25 mg PO BID [facility] Last Admin: 05/08/18 09:28 Dose: 25 mg Heparin Sodium/Dextrose (Heparin Infusion -) 25,000 units in 500 mls @ 16 mls/ hr IV TITR [facility]; Protocol Last Admin: 05/07/18 15:28 Dose: 800 units/hr, 16 mls/hr Isosorbide Mononitrate (Imdur -) 30 mg PO DAILY [facility] Last Admin: 05/08/18 14:33 Dose: 30 mg Metoprolol Tartrate (Lopressor -) 25 mg PO BID [facility] Last Admin: 05/08/18 14:33 Dose: 25 mg Tamsulosin HCl (Flomax -) 0.4 mg PO DAILY@0830 [facility] Last Admin: 05/08/18 09:28 Dose: 0.4 mg - Objective Vital Signs: Vital Signs Temperature 97 F L 05/08/18 14:00 Pulse Rate 65 05/08/18 14:00 Respiratory Rate 20 05/08/18 14:00 Blood Pressure 156/78 05/08/18 14:00 O2 Sat by Pulse Oximetry (%) 100 05/08/18 09:00 Constitutional: Yes: No Distress, Calm Eyes: Yes: Conjunctiva Clear HENT: Yes: Normocephalic Neck: Yes: Supple Cardiovascular: Yes: Regular Rate and Rhythm Respiratory: Yes: Regular, CTA Bilaterally Gastrointestinal: Yes: Normal Bowel Sounds, Soft Musculoskeletal: Yes: Muscle Weakness Extremities: Yes: WNL Edema: Yes Edema: LLE: 1+, RLE: 1+ Peripheral Pulses WNL: No Neurological: Yes: Alert, Oriented Psychiatric: Yes: Alert, Oriented Labs: CBC, BMP 05/08/18 05:30 05/08/18 10:00 INR, PTT INR 1.07 (0.83-1.09) 05/07/18 06:40 Troponin, BNP 05/08/18 07:00 Troponin I 0.92 H* Problem List - Problems (1) CKD (chronic kidney disease) Assessment/Plan: -renal on board -BUN/Cr 47/2.7 -will monitor renal function Code(s): N18.9 - CHRONIC KIDNEY DISEASE, UNSPECIFIED (2) Chest pain, rule out acute myocardial infarction Assessment/Plan: -cardiology on board -tele monitoring -continue Heparin gtt -isosorbide mononitrate started -started on plavix PO Code(s): R07.9 - CHEST PAIN, UNSPECIFIED (3) HTN (hypertension) Assessment/Plan: -continue amlodipine, metoprolol, and hydralazine -started on isosorbide mononitrate Code(s): I10 - ESSENTIAL (PRIMARY) HYPERTENSION (4) Troponin I above reference range Assessment/Plan: -current troponin 0.92, trending down -will continue to monitor level Code(s): R74.8 - ABNORMAL LEVELS OF OTHER SERUM ENZYMES Assessment/Plan see problem list
[2018-05-08] MEDS: ATORVASTATIN CA 40 MG TABLET (FP) PO SCH (22:12)
[2018-05-09 07:33] LABS: HEMATOCRIT 27.6 % (35.4-49); HEMOGLOBIN 9.5 GM/dL (11.7-16.9); MCH 32.9 pg (25.7-33.7); MCHC 34.4 g/dl (32.0-35.9); MEAN CELL VOLUME 95.5 fl (80-96); MEAN PLT VOLUME 8.7 fl (7.5-11.1); PLATELET COUNT 144 K/MM3 (134-434); RBC 2.89 M/mm3 (4.00-5.60); WHITE BLOOD COUNT 4.1 K/mm3 (4.0-10.0)
[2018-05-09 07:49] LABS: ALK PHOS 84 U/L (45-117); ANION GAP 7 MMOL/L (8-16); BILIRUBIN,TOTAL 0.2 mg/dL (0.2-1); BLOOD UREA NITROGEN 46 mg/dL (7-18); CALCIUM 7.6 mg/dL (8.5-10.1); CHLORIDE 112 mmol/L (98-107); CO2 20 mmol/L (21-32); CREATININE 2.6 mg/dL (0.55-1.3); GLUCOSE,RANDOM 87 mg/dL (74-106); POTASSIUM 4.6 mmol/L (3.5-5.1); SGOT/AST 11 U/L (15-37); SGPT/ALT 16 U/L (13-61); SODIUM 140 mmol/L (136-145); TOT PROT 6.1 g/dl (6.4-8.2)
[2018-05-09] MEDS: ASPIRIN 81 MG CHEWABLE TABLETS PO SCH (09:04)
[2018-05-09] MEDS: METOPROLOL TARTRATE 25 MG TABLET (FP) PO SCH ×2 (09:04→21:18)
[2018-05-09] MEDS: ISOSORBIDE MONONITRATE 30 MG TAB.SR.24H (FP) PO SCH ×2 (09:04→21:18)
[2018-05-09] MEDS: hydrALAZINE HCL 25 MG TABLET (FP) PO SCH ×2 (09:04→21:18)
[2018-05-09] MEDS: TAMSULOSIN HCL 0.4 MG CAP PO SCH (09:04)
[2018-05-09] MEDS: BRIMONIDINE TARTRATE 0.15% OPHTHALMIC 5 ML BOTTLE OU SCH ×2 (09:05→21:18)
[2018-05-09] MEDS: amLODIPine BESYLATE 10 MG TABLET (FP) PO SCH (09:05)
[2018-05-09] MEDS: CLOPIDOGREL BISULFATE 75 MG TABLET (FP) PO SCH (09:05)
--- NOTE | 2018-05-09 09:24 | PN ---
Progress Note, Physician Chief Complaint: NSTEMI History of Present Illness: mild chest constriction again last night, at rest (awake at the time). lasted 5-10 min. no sob then or otherwise, no orthopnea. no cp since no palpit, syncope no cigs - Current Medication List Current Medications: Active Medications Amlodipine Besylate (Norvasc -) 10 mg PO DAILY [facility] Last Admin: 05/09/18 09:05 Dose: 10 mg Aspirin (Asa -) 81 mg PO DAILY [facility] Last Admin: 05/09/18 09:04 Dose: 81 mg Atorvastatin Calcium (Lipitor -) 80 mg PO HS [facility] [place] Last Admin: 05/08/18 22:12 Dose: 80 mg Brimonidine Tartrate (Alphagan 0.15% -) 1 drop OU BID [facility] Last Admin: 05/09/18 09:05 Dose: 1 drop Clopidogrel Bisulfate (Plavix -) 75 mg PO DAILY [facility] Last Admin: 05/09/18 09:05 Dose: 75 mg Heparin Sodium (Porcine) (Heparin -) 1,000 unit IVPUSH PRN PRN PRN Reason: Heparin Heparin Sodium (Porcine) (Heparin -) 5,000 unit IVPUSH PRN PRN PRN Reason: Heparin Last Admin: 05/06/18 16:23 Dose: 5,000 unit Hydralazine HCl (Apresoline -) 25 mg PO BID [facility] Last Admin: 05/09/18 09:04 Dose: 25 mg Heparin Sodium/Dextrose (Heparin Infusion -) 25,000 units in 500 mls @ 16 mls/ hr IV TITR [facility] [place]; Protocol Last Admin: 05/08/18 22:17 Dose: 800 units/hr, 16 mls/hr Isosorbide Mononitrate (Imdur -) 30 mg PO DAILY [facility] [place] Last Admin: 05/09/18 09:04 Dose: 30 mg Metoprolol Tartrate (Lopressor -) 25 mg PO BID [facility] [place] Last Admin: 05/09/18 09:04 Dose: 25 mg Tamsulosin HCl (Flomax -) 0.4 mg PO DAILY@0830 [facility] Last Admin: 05/09/18 09:04 Dose: 0.4 mg - Objective Vital Signs: Vital Signs Temperature 98.4 F 05/09/18 06:00 Pulse Rate 76 05/09/18 06:00 Respiratory Rate 18 05/09/18 06:00 Blood Pressure 129/71 05/09/18 06:00 O2 Sat by Pulse Oximetry (%) 100 05/08/18 21:00 Constitutional: Yes: No Distress, Calm Eyes: No: Sclera Icterus HENT: No: Nasal Congestion Cardiovascular: Yes: Regular Rate and Rhythm, S1, S2, Other (PMI non diplaced). No: Gallop, Murmur Respiratory: Yes: CTA Bilaterally. No: Accessory Muscle Use, Rales, Wheezes Gastrointestinal: Yes: Normal Bowel Sounds, Soft. 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 related to HTN emergency - normal nuclear stress test 3 mo ago (including nl EF. no TID mentioned above)- -? balanced ischemia (MVDz), vs plaque rupture of previously nonobstructive dz - high risk for WILLIE, hence ischemia-driven strategy is likely the lowest risk option for him - medically managing: aspirin, UFH gtt, plavix, hi intensity statin, low dose BB - started iso mono yesterday, episode of CP last night--increase to bid - d/w'd pt the options of cath for definitive rule out of high risk anatomy (if willing to accept high risk of worsening renal fxn and lower likelihood of HD) vs repeat ischemia evaluation for risk stratification (if willing to accept some small uncertainty regarding underlying cor anatomy/risk). disc'd the pros and cons of each approach (including overall slightly lower absolute risk of [place]/ with invasive tx of NSTEMI)-- he states he strongly wishes to avoid HD in his lifetime and hence does not want to do any procedures that increases this risk, as long as no clinical signs that he is high risk and has no choice but to pursue invasive strategy. - for repeat pharm MPI tomorrow--plan to defer cath if no high risk findings and pt's angina remains well controlled - cont tele HTN with hypertensive emergency -BP improved but remains uncontrolled -advanced CKD--holding RAAS blockers -bradycardia to 40s-50s here--given sinus arrhythmia appearance this is physiologic vagal tone and not risk for syncope. continue BB but low dose: changed toprol 50 qd to lopressor 25 bid -increase amlodip to 10, started hydral 25 bid, iso mono -BP much improved, normal--observe trend, consider decr amlodipine or hold hydral later (as outpatient?) HLD - cont statin CKD - baseline creat 2.9-3.5 - renal following. IVF stopped given no improvement, renal fxn at baseline, and pedal edema
--- NOTE | 2018-05-09 09:41 | PN ---
Progress Note (short form) - Note Progress Note: Renal follow up for CKD Pt seen and examined at the bedside no acute complaints NAD awake and alert neck supple RRR, No M/R CTA, no rales or wheeze soft NT/ND + edema in LE CBC, BMP 05/08/18 07:00 Current Medications Amlodipine Besylate (Norvasc -) 10 mg PO DAILY [facility] Last Admin: 05/08/18 09:28 Dose: 10 mg Aspirin (Asa -) 81 mg PO DAILY [facility] Last Admin: 05/08/18 09:28 Dose: 81 mg Atorvastatin Calcium (Lipitor -) 80 mg PO HS [facility] Last Admin: 05/07/18 22:23 Dose: 80 mg Brimonidine Tartrate (Alphagan 0.15% -) 1 drop OU BID [facility] Last Admin: 05/08/18 09:29 Dose: 1 drop Heparin Sodium (Porcine) (Heparin -) 1,000 unit IVPUSH PRN PRN PRN Reason: Heparin Heparin Sodium (Porcine) (Heparin -) 5,000 unit IVPUSH PRN PRN PRN Reason: Heparin Last Admin: 05/06/18 16:23 Dose: 5,000 unit Hydralazine HCl (Apresoline -) 25 mg PO BID [facility] Last Admin: 05/08/18 09:28 Dose: 25 mg Heparin Sodium/Dextrose (Heparin Infusion -) 25,000 units in 500 mls @ 16 mls/ hr IV TITR [facility]; Protocol Last Admin: 05/07/18 15:28 Dose: 800 units/hr, 16 mls/hr Tamsulosin HCl (Flomax -) 0.4 mg PO DAILY@0830 [facility] Last Admin: 05/08/18 09:28 Dose: 0.4 mg 82 year old gentleman with hx of CKD stage 4, hypertension, CAD who presented with substernal chest pain and found to have NSTEMI. Baseline Cr 2.9-3. #NSTEMI #hx of CAD #CKD stage 4 #Contrast Nephropathy risk stratification #Hypertension #BPH Renal function stable at this time for stress test tomorrow cardiology following Dose all meds for CrCl < 20 avoid nephrotoxins Thank you Carlos Avery DO
[2018-05-09] MEDS: HEPARIN INFUSION - 25,000 UNITS/500 ML INFUS.BAG IV SCH (10:00)
--- NOTE | 2018-05-09 15:51 | PN ---
Progress Note, Physician Chief Complaint: NSTEMI CKD History of Present Illness: Previous notes and events reviewed awake and alert NAD denies chest pain, palpitations, dizziness - Current Medication List Current Medications: Active Medications Amlodipine Besylate (Norvasc -) 10 mg PO DAILY [facility] Last Admin: 05/09/18 09:05 Dose: 10 mg Aspirin (Asa -) 81 mg PO DAILY [facility] Last Admin: 05/09/18 09:04 Dose: 81 mg Atorvastatin Calcium (Lipitor -) 80 mg PO HS [facility] Last Admin: 05/08/18 22:12 Dose: 80 mg Brimonidine Tartrate (Alphagan 0.15% -) 1 drop OU BID [facility] Last Admin: 05/09/18 09:05 Dose: 1 drop Clopidogrel Bisulfate (Plavix -) 75 mg PO DAILY [facility] Last Admin: 05/09/18 09:05 Dose: 75 mg Heparin Sodium (Porcine) (Heparin -) 1,000 unit IVPUSH PRN PRN PRN Reason: Heparin Heparin Sodium (Porcine) (Heparin -) 5,000 unit IVPUSH PRN PRN PRN Reason: Heparin Last Admin: 05/06/18 16:23 Dose: 5,000 unit Hydralazine HCl (Apresoline -) 25 mg PO BID [facility] Last Admin: 05/09/18 09:04 Dose: 25 mg Heparin Sodium/Dextrose (Heparin Infusion -) 25,000 units in 500 mls @ 16 mls/ hr IV TITR [facility]; Protocol Last Admin: 05/08/18 22:17 Dose: 800 units/hr, 16 mls/hr Isosorbide Mononitrate (Imdur -) 30 mg PO BID [facility] Metoprolol Tartrate (Lopressor -) 25 mg PO BID [facility] Last Admin: 05/09/18 09:04 Dose: 25 mg Tamsulosin HCl (Flomax -) 0.4 mg PO DAILY@0830 [facility] Last Admin: 05/09/18 09:04 Dose: 0.4 mg - Objective Vital Signs: Vital Signs Temperature 97.8 F 05/09/18 14:00 Pulse Rate 60 05/09/18 14:00 Respiratory Rate 18 05/09/18 06:00 Blood Pressure 142/67 05/09/18 14:00 O2 Sat by Pulse Oximetry (%) 100 05/08/18 21:00 Constitutional: Yes: No Distress, Calm Eyes: Yes: Conjunctiva Clear HENT: Yes: Normocephalic Cardiovascular: Yes: Regular Rate and Rhythm Respiratory: Yes: Regular, CTA Bilaterally Gastrointestinal: Yes: Normal Bowel Sounds, Soft Edema: Yes Edema: LLE: Trace, RLE: Trace Neurological: Yes: Alert Psychiatric: Yes: Alert Labs: CBC, BMP 05/09/18 05:15 05/09/18 05:15 INR, PTT INR 1.07 (0.83-1.09) 05/07/18 06:40 Problem List - Problems (1) CKD (chronic kidney disease) Assessment/Plan: -renal on board -BUN/Cr 46/2.6 -will monitor renal function Code(s): N18.9 - CHRONIC KIDNEY DISEASE, UNSPECIFIED (2) Chest pain, rule out acute myocardial infarction Assessment/Plan: -cardiology on board -tele monitoring -continue Heparin gtt -isosorbide mononitrate started -started on plavix PO -stress test tomorrow in the AM Code(s): R07.9 - CHEST PAIN, UNSPECIFIED (3) HTN (hypertension) Assessment/Plan: -continue amlodipine, metoprolol, and hydralazine -started on isosorbide mononitrate Code(s): I10 - ESSENTIAL (PRIMARY) HYPERTENSION (4) Troponin I above reference range Assessment/Plan: -current troponin 0.92, trending down -will continue to monitor level Code(s): R74.8 - ABNORMAL LEVELS OF OTHER SERUM ENZYMES Assessment/Plan see problem list dvt ppx
[2018-05-09] MEDS: ATORVASTATIN CA 40 MG TABLET (FP) PO SCH (21:19)
[2018-05-10 07:42] LABS: HEMATOCRIT 26.6 % (35.4-49); HEMOGLOBIN 9.1 GM/dL (11.7-16.9); MCH 32.2 pg (25.7-33.7); MCHC 34.3 g/dl (32.0-35.9); MEAN CELL VOLUME 93.9 fl (80-96); MEAN PLT VOLUME 8.3 fl (7.5-11.1); PLATELET COUNT 148 K/MM3 (134-434); RBC 2.83 M/mm3 (4.00-5.60); RDW 15.6 % (11.9-15.9); WHITE BLOOD COUNT 4.2 K/mm3 (4.0-10.0)
[2018-05-10] MEDS: hydrALAZINE HCL 25 MG TABLET (FP) PO SCH ×2 (07:55→10:33)
[2018-05-10] MEDS: amLODIPine BESYLATE 10 MG TABLET (FP) PO SCH ×2 (07:55→10:33)
[2018-05-10] MEDS: TAMSULOSIN HCL 0.4 MG CAP PO SCH (07:56)
[2018-05-10 08:39] LABS: ALBUMIN 3.1 g/dl (3.4-5.0); ALK PHOS 74 U/L (45-117); ANION GAP 8 MMOL/L (8-16); BILIRUBIN,TOTAL 0.3 mg/dL (0.2-1); BLOOD UREA NITROGEN 50 mg/dL (7-18); CALCIUM 7.9 mg/dL (8.5-10.1); CHLORIDE 112 mmol/L (98-107); CO2 20 mmol/L (21-32); CREATININE 2.8 mg/dL (0.55-1.3); GLUCOSE,RANDOM 85 mg/dL (74-106); POTASSIUM 4.5 mmol/L (3.5-5.1); SGOT/AST 13 U/L (15-37); SGPT/ALT 14 U/L (13-61); SODIUM 140 mmol/L (136-145); TOT PROT 6.4 g/dl (6.4-8.2)
[2018-05-10] MEDS ORDERED: REGADENOSON 0.4 MG/5 ML PRE-FILLED SYRINGE IVPUSH ONE ×2 (09:53→11:45)
[2018-05-10] MEDS: BRIMONIDINE TARTRATE 0.15% OPHTHALMIC 5 ML BOTTLE OU SCH (10:32)
--- NOTE | 2018-05-10 11:51 | PN ---
Progress Note, Physician Chief Complaint: The patient for Stress test today. No specific complaints. History of Present Illness: 82 year old gentleman with hx of CKD stage 4, hypertension, CAD who presented with sub-sternal chest pain and found to have Acute NSSTEMI. Baseline Cr 2.9-3. Maintains good urine output. No chest pain. No Shortness of breath. - Current Medication List Current Medications: Active Medications Amlodipine Besylate (Norvasc -) 10 mg PO DAILY [facility] Last Admin: 05/10/18 10:33 Dose: Not Given Aspirin (Asa -) 81 mg PO DAILY [facility] Last Admin: 05/09/18 09:04 Dose: 81 mg Atorvastatin Calcium (Lipitor -) 80 mg PO HS [facility] Last Admin: 05/09/18 21:19 Dose: 80 mg Brimonidine Tartrate (Alphagan 0.15% -) 1 drop OU BID [facility] Last Admin: 05/10/18 10:32 Dose: Not Given Clopidogrel Bisulfate (Plavix -) 75 mg PO DAILY [facility] Last Admin: 05/09/18 09:05 Dose: 75 mg Heparin Sodium (Porcine) (Heparin -) 1,000 unit IVPUSH PRN PRN PRN Reason: Heparin Heparin Sodium (Porcine) (Heparin -) 5,000 unit IVPUSH PRN PRN PRN Reason: Heparin Last Admin: 05/06/18 16:23 Dose: 5,000 unit Hydralazine HCl (Apresoline -) 25 mg PO BID [facility] Last Admin: 05/10/18 10:33 Dose: Not Given Heparin Sodium/Dextrose (Heparin Infusion -) 25,000 units in 500 mls @ 16 mls/ hr IV TITR [facility]; Protocol Last Admin: 05/09/18 10:00 Dose: 800 units/hr, 16 mls/hr Isosorbide Mononitrate (Imdur -) 30 mg PO BID [facility] Last Admin: 05/09/18 21:18 Dose: 30 mg Metoprolol Tartrate (Lopressor -) 25 mg PO BID [facility] Last Admin: 05/09/18 21:18 Dose: 25 mg Regadenoson (Lexiscan) 0.4 mg IVPUSH ONCE ONE Stop: 05/10/18 11:46 Tamsulosin HCl (Flomax -) 0.4 mg PO DAILY@0830 [facility] Last Admin: 05/10/18 07:56 Dose: 0.4 mg - Objective Vital Signs: Vital Signs Temperature 97.8 F 05/10/18 10:00 Pulse Rate 62 05/10/18 10:00 Respiratory Rate 18 05/10/18 10:00 Blood Pressure 142/60 05/10/18 10:00 O2 Sat by Pulse Oximetry (%) 100 05/10/18 09:00 Constitutional: Yes: No Distress Eyes: Yes: Conjunctiva Clear HENT: Yes: Normocephalic Neck: Yes: Supple Cardiovascular: Yes: Tachycardia, S1, S2 Respiratory: Yes: CTA Bilaterally, Diminished Gastrointestinal: Yes: Normal Bowel Sounds, Soft Labs: CBC, BMP 05/10/18 05:25 05/10/18 05:25 INR, PTT INR 1.07 (0.83-1.09) 05/07/18 06:40 Problem List - Problems (1) Acute renal failure Code(s): N17.9 - ACUTE KIDNEY FAILURE, UNSPECIFIED (2) CKD (chronic kidney disease) Code(s): N18.9 - CHRONIC KIDNEY DISEASE, UNSPECIFIED (3) HTN (hypertension) Code(s): I10 - ESSENTIAL (PRIMARY) HYPERTENSION Assessment/Plan 82 year old gentleman with history of CKD stage 4, hypertension, CAD who presented with sub-sternal chest pain and found to have NSTEMI. Baseline Cr 2.9-3. #NSTEMI...W/u in progress. #hx of CAD #CKD stage 4. Some hemodynamic worsening of Azotemia noted. Expected to settle at his baseline. #Contrast Nephropathy risk stratification #Hypertension #BPH Concur with the current management. Will monitor the renal functions with you.. Romi Nelson MD
--- NOTE | 2018-05-10 13:06 | PN ---
Progress Note, Physician Chief Complaint: MA History of Present Illness: no more cp yest or today no sob no palpit, syncope - Current Medication List Current Medications: Active Medications Amlodipine Besylate (Norvasc -) 10 mg PO DAILY [facility] Last Admin: 05/10/18 10:33 Dose: Not Given Aspirin (Asa -) 81 mg PO DAILY [facility] Last Admin: 05/09/18 09:04 Dose: 81 mg Atorvastatin Calcium (Lipitor -) 80 mg PO HS [facility] Last Admin: 05/09/18 21:19 Dose: 80 mg Brimonidine Tartrate (Alphagan 0.15% -) 1 drop OU BID [facility] Last Admin: 05/10/18 10:32 Dose: Not Given Clopidogrel Bisulfate (Plavix -) 75 mg PO DAILY [facility] Last Admin: 05/09/18 09:05 Dose: 75 mg Heparin Sodium (Porcine) (Heparin -) 1,000 unit IVPUSH PRN PRN PRN Reason: Heparin Heparin Sodium (Porcine) (Heparin -) 5,000 unit IVPUSH PRN PRN PRN Reason: Heparin Last Admin: 05/06/18 16:23 Dose: 5,000 unit Hydralazine HCl (Apresoline -) 25 mg PO BID [facility] Last Admin: 05/10/18 10:33 Dose: Not Given Heparin Sodium/Dextrose (Heparin Infusion -) 25,000 units in 500 mls @ 16 mls/ hr IV TITR [facility]; Protocol Last Admin: 05/09/18 10:00 Dose: 800 units/hr, 16 mls/hr Isosorbide Mononitrate (Imdur -) 30 mg PO BID [facility] Last Admin: 05/09/18 21:18 Dose: 30 mg Metoprolol Tartrate (Lopressor -) 25 mg PO BID [facility] Last Admin: 05/09/18 21:18 Dose: 25 mg Tamsulosin HCl (Flomax -) 0.4 mg PO DAILY@0830 [facility] Last Admin: 05/10/18 07:56 Dose: 0.4 mg - Objective Vital Signs: Vital Signs Temperature 97.8 F 05/10/18 10:00 Pulse Rate 62 05/10/18 10:00 Respiratory Rate 18 05/10/18 10:00 Blood Pressure 142/60 05/10/18 10:00 O2 Sat by Pulse Oximetry (%) 100 05/10/18 09:00 Constitutional: Yes: Well Nourished, No Distress, Calm Cardiovascular: Yes: Regular Rate and Rhythm, S1, S2. No: Gallop, Murmur Respiratory: Yes: Regular, CTA Bilaterally. No: Accessory Muscle Use, Rales, Wheezes Extremities: No: Cold Edema: Yes (1+ ankles) Neurological: Yes: Alert, Oriented Psychiatric: No: Agitated Labs: CBC, BMP 05/10/18 05:25 05/10/18 05:25 INR, PTT INR 1.07 (0.83-1.09) 05/07/18 06:40 Assessment/Plan EKG: sinus, old inf infarct, RBBB CXR: no acute process tele: NSR, no events echo 04/2018: mild lvh, nl lv/rv, mild mr/tr/ar mibi 01/2018: nl mpi, nl lvef Assessment/Plan 82M h/o HTN, CAD s/p stents 2006 and 2011, HLD p/w chest pain NSTEMI, hx CAD - trop peaked at 2s-->trending down - angina sx (chest tightness/squeezing) began several mo ago off and on--no recurrence since admit - ? related to HTN emergency - normal nuclear stress test 3 mo ago (including nl EF. no TID mentioned above)- -? balanced ischemia (MVDz), vs plaque rupture of previously nonobstructive dz - high risk for WILLIE, hence ischemia-driven strategy is likely the lowest risk option for him - medically managing: aspirin, UFH gtt, plavix, hi intensity statin, low dose BB - iso mono for angina--no more sx's - d/w'd pt the options of cath for definitive rule out of high risk anatomy (if willing to accept high risk of worsening renal fxn and lower likelihood of HD) vs repeat ischemia evaluation for risk stratification (if willing to accept some small uncertainty regarding underlying cor anatomy/risk). disc'd the pros and cons of each approach (including overall slightly lower absolute risk of MA/ with invasive tx of NSTEMI)-- he states he strongly wishes to avoid HD in his lifetime and hence does not want to do any procedures that increases this risk, as long as no clinical signs that he is high risk and has no choice but to pursue invasive strategy. - for repeat pharm MPI today--plan to defer cath if no high risk findings and pt 's angina remains well controlled - cont tele HTN with hypertensive emergency -BP improved but remains uncontrolled -advanced CKD--holding RAAS blockers -bradycardia to 40s-50s here--given sinus arrhythmia appearance this is physiologic vagal tone and not risk for syncope. continue BB but low dose: changed toprol 50 qd to lopressor 25 bid -increase amlodip to 10, started hydral 25 bid, iso mono -BP much improved, normal--observe trend, consider decr amlodipine or hold hydral later (as outpatient?) HLD - cont statin CKD - baseline creat 2.9-3.5 - renal following. IVF stopped given no improvement, renal fxn at baseline, and pedal edema
[2018-05-10 14:31] VITALS: TEMP 98.1
[2018-05-10] MEDS: ASPIRIN 81 MG CHEWABLE TABLETS PO SCH (14:31)
[2018-05-10] MEDS: ISOSORBIDE MONONITRATE 30 MG TAB.SR.24H (FP) PO SCH (14:31)
[2018-05-10] MEDS: METOPROLOL TARTRATE 25 MG TABLET (FP) PO SCH (14:31)
[2018-05-10] MEDS: CLOPIDOGREL BISULFATE 75 MG TABLET (FP) PO SCH (14:31)
[2018-05-10] MEDS ORDERED: POLYETHYLENE GLYCOL 3350 119 GM BTL PO ONE (15:46)
--- NOTE | 2018-05-10 15:54 | DS ---
Physical Examination Vital Signs: Vital Signs Temperature 98.1 F 05/10/18 14:00 Pulse Rate 97 H 05/10/18 14:00 Respiratory Rate 20 05/10/18 14:00 Blood Pressure 159/75 05/10/18 14:00 O2 Sat by Pulse Oximetry (%) 100 05/10/18 09:00 Constitutional: Yes: Calm Cardiovascular: Yes: Regular Rate and Rhythm, S1, S2 Respiratory: Yes: CTA Bilaterally Gastrointestinal: Yes: Normal Bowel Sounds, Soft Neurological: Yes: Alert, Oriented Labs: CBC, BMP 05/10/18 05:25 05/10/18 05:25 Discharge Summary Reason For Visit: RULED OUT FOR MYOCARDIAL INFARCTION Current Active Problems Acute renal failure (Acute) CKD (chronic kidney disease) (Acute) Chest pain (Acute) Chest pain, rule out acute myocardial infarction (Acute) Glaucoma (Acute) HTN (hypertension) (Acute) Troponin I above reference range (Acute) Hospital Course: PCP: Poncho Shea MD - Admission Chief Complaint: chest pressure and tingling of hands History of Present Illness: 82 year old male with history of HTN, CAD (stents in 2006 and 2011), and HLD presenting with sudden onset moderate chest pain that has since gotten better but still lingering. He woke up around 8 AM and noticed a central, non- exertional, non-radiating, non-pleuritic chest pain that co-presented with nausea. Denies SOB, lightheadedness, cough, or other symptoms. He has had chest pain like this before. 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 per patient about 2 -3 days ago he had similar episode of chest pain like today but it resolved today he was going to [employer] when he felt uncomfortable with chest pressure it went away but came back again with tingling of hands and he decided to come to ER in ER EKG change t wave inversion in v2-v3 which is new trop increased from 0.07 to 1.25 then peaked and droped to .0.9 patient at telemtry floor had nuclear stress test done negative on iv heparin drip HTN meds adjusted and angina imdur started Condition: Stable - Instructions Referrals: Poncho Shea MD, MD [Primary Care Provider] - 1 Week Disposition: HOME - Home Medications Comprehensive Discharge Medication List: Ambulatory Orders Aspirin [ASA -] 81 mg PO DAILY 01/10/14 Atorvastatin Ca [Lipitor -] 40 mg PO HS 01/10/14 Bimatoprost [Lumigan] 1 drop IO BID 01/10/14 Brimonidine Tartrate [Alphagan 0.15% -] 1 drop OU BID 01/10/14 Cholecalciferol (Vitamin D3) [Vitamin D-3] 2,000 unit PO DAILY 01/10/14 Dorzolamide HCl/Timolol Maleat [Cosopt Eye Drops] 5 ml OP BID 01/10/14 Losartan Potassium 100 mg PO DAILY 01/10/14 Tamsulosin HCl 0.4 mg PO DAILY 01/10/14 Vitamin A/Vitamin D2 [Ethiopian Cod Liver Oil Sfgl] 1 each PO DAILY 01/10/14 Diltiazem HCl [Diltiazem 24Hr Cd] 120 mg PO DAILY 05/06/18 Metoprolol Succinate 50 mg PO DAILY 05/06/18
[2018-05-10 17:52] VITALS: BP 133/66; PULSE 75
== END 2018-05-10 19:24 | disposition home or self-care (01) | DRG 281 ==
LOC: JER 09:26 → JERBED 10:09 → OBSVTOIN 15:37 → J4W 21:25
PROVIDERS: ADMIT Student in an Organized Health Care Education/Training Program; ATTEND Student in an Organized Health Care Education/Training Program
DX: I21.4 Non-ST elevation (NSTEMI) myocardial infarction (principal); N18.4 Chronic kidney disease, stage 4 (severe); I12.9 Hypertensive chronic kidney disease with stage 1 through stage 4 chronic kidney disease, or unspecified chronic kidney disease; E11.22 Type 2 diabetes mellitus with diabetic chronic kidney disease; I45.10 Unspecified right bundle-branch block; I25.10 Atherosclerotic heart disease of native coronary artery without angina pectoris; Z95.5 Presence of coronary angioplasty implant and graft; E78.5 Hyperlipidemia, unspecified; H40.9 Unspecified glaucoma; N40.0 Benign prostatic hyperplasia without lower urinary tract symptoms
CPT/HCPCS: 36415; 71046-TC-FY; 78452-TC; 80048; 80053; 80061; 81003; 81015; 82550; 82553; 83036; 83721; 83735; 83880; 84100; 84484; 85025; 85027; 85610; 85730; 93005; 93010; 93017; 93306-TC; 99285-25; A9502; G0378; J1644; J2785; J7030

== ENCOUNTER 2018-10-24 14:51 | Inpatient (IN) | payer OTHER ==
--- NOTE | 2018-10-24 16:22 | PDOC ---
History of Present Illness - General Chief Complaint: Pain Stated Complaint: LT FOOT PAIN Time Seen by Provider: 10/24/18 15:14 History Source: Patient Exam Limitations: No Limitations Past History - Travel Traveled outside of the country in the last 30 days: No Close contact w/someone who was outside of country & ill: No - Past Medical History Allergies/Adverse Reactions: Allergies Allergy/AdvReac Type Severity Reaction Status Date / Time No Known Drug Allergies Allergy Verified 10/24/18 15:03 Home Medications: Ambulatory Orders Aspirin [ASA -] 81 mg PO DAILY 01/10/14 Atorvastatin Ca [Lipitor] 40 mg PO HS 01/10/14 Bimatoprost [Lumigan] 1 drop IO BID 01/10/14 Brimonidine Tartrate [Alphagan 0.15% -] 1 drop OU BID 01/10/14 Cholecalciferol (Vitamin D3) [Vitamin D3] 2,000 unit PO DAILY 01/10/14 Dorzolamide HCl/Timolol Maleat [Cosopt Eye Drops] 5 ml OP BID 01/10/14 Tamsulosin HCl 0.4 mg PO DAILY 01/10/14 Vitamin A/Vitamin D2 [Slovak Cod Liver Oil Sfgl] 1 each PO DAILY 01/10/14 Amlodipine Besylate [Norvasc -] 10 mg PO DAILY #30 tablet MDD 2 05/10/18 Atorvastatin Ca [Lipitor] 80 mg PO HS #30 tab 05/10/18 Atorvastatin Ca [Lipitor] 80 mg PO HS #30 tablet MDD 2 05/10/18 Clopidogrel Bisulfate [Plavix -] 75 mg PO DAILY #30 tablet MDD 1 05/10/18 Isosorbide Mononitrate [Imdur -] 30 mg PO BID #30 tab.sr.24h MDD 2 05/10/18 Metoprolol Tartrate [Lopressor -] 25 mg PO BID #30 tablet MDD 2 05/10/18 hydrALAZINE HCL [Apresoline -] 25 mg PO BID #30 tablet MDD 2 05/10/18 Cardiac Disorders: Yes (stents few years ago) COPD: No Diabetes: Yes Disorders: Yes (bph) HTN: Yes Hypercholesterolemia: Yes Other medical history: arthritis, glaucoma, poor kidney function - Surgical History Cardiac Surgery: Yes (CATH) - Immunization History Td Vaccination: No TDAP Vaccination: No Immunization Up to Date: No (unsure) - Suicide/Smoking/Psychosocial Hx Smoking Status: No Smoking History: Never smoked Number of Cigarettes Smoked Daily: 0 Hx Alcohol Use: No Drug/Substance Use Hx: No Hx Substance Use Treatment: No Review of Systems - Review of Systems Able to Perform ROS?: Yes Comments:: 10/24/18 16:22 CONSTITUTIONAL: Absent: fever, chills, diaphoresis, generalized weakness, malaise, loss of appetite HEENT: Absent: rhinorrhea, nasal congestion, throat pain, throat swelling, difficulty swallowing, mouth swelling, ear pain, eye pain, visual Changes CARDIOVASCULAR: Present: near syncope Absent: chest pain, loss of consciousness, palpitations, irregular heart rate, peripheral edema RESPIRATORY: Absent: cough, shortness of breath, dyspnea with exertion, orthopnea, wheezing, stridor, hemoptysis GASTROINTESTINAL: Absent: abdominal pain, abdominal distension, nausea, vomiting, diarrhea, constipation, melena, hematochezia GENITOURINARY: Absent: dysuria, frequency, urgency, hesitancy, hematuria, flank pain, genital pain MUSCULOSKELETAL: Present: L ankle pain Absent: myalgia, arthralgia, joint swelling SKIN: Absent: rash, itching, pallor HEMATOLOGIC/IMMUNOLOGIC: Absent: easy bleeding, easy bruising, lymphadenopathy, frequent infections ENDOCRINE: Absent: unexplained weight gain, unexplained weight loss, heat intolerance, cold intolerance NEUROLOGIC: Absent: headache, focal weakness or paresthesias, dizziness, unsteady gait, seizure, mental status changes, bladder or bowel incontinence PSYCHIATRIC: Absent: anxiety, depression, suicidal or homicidal ideation, hallucinations. Is the patient limited Mongolian proficient: No *Physical Exam - Vital Signs Last Vital Signs Temp Pulse Resp BP Pulse Ox 99.8 F H 75 18 115/55 L 99 10/24/18 14:59 10/24/18 14:59 10/24/18 14:59 10/24/18 14:59 10/24/18 14:59 - Physical Exam Comments: 10/24/18 16:25 GENERAL: Well developed, well nourished. Awake and alert. No acute distress. HEENT: Normocephalic, atraumatic. PERRLA, EOMI. No conjunctival pallor. Sclera are non- icteric. Moist mucous membranes. Oropharynx is clear. MUSCULOSKELETAL TTP with associated edema to the L ankle at the lateral malleolus. Decreased ROM d/t pain. Normal range of motion at all other joints. No CVA tenderness. EXTREMITIES: No cyanosis. No clubbing. No edema. No calf tenderness. SKIN: Warm and dry. Normal capillary refill. No rashes. No jaundice. NEUROLOGICAL: Alert, awake, appropriate. Cranial nerves 2-12 intact. No deficits to light touch and temperature in face, upper extremities and lower extremities. No motor deficits in the in face, upper extremities and lower extremities. Normoreflexic in the upper and lower extremities. Normal speech. Toes are down- going bilaterally. Gait is normal without ataxia. PSYCHIATRIC: Cooperative. Good eye contact. Appropriate mood and affect. Medical Decision Making - Medical Decision Making 10/24/18 16:33 The patient is an 82-year-old male past medical she of hypertension, coronary artery disease (stents in 2006 in 2011), hyperlipidemia, CKD, presents to the ER today with left ankle pain status post fall yesterday. The patient states he felt lightheaded and dizzy and fell on his right side. He denies fully losing consciousness or hitting his head. He does take blood thinners. He states that he still feels dizzy upon standing. Denies shortness of breath, cough, chest pain, difficulty breathing, nausea, vomiting and diarrhea. A/P: Presyncope, left ankle pain On exam the left ankle is edematous laterally with decreased range of motion. X-ray of the left ankle ordered Given that this was not a mechanical trip and fall, patient to be transferred to the main ER for a presyncope workup given past medical history. Signout given to Dr. Owusu and [facility] *DC/Admit/Observation/Transfer Diagnosis at time of Disposition: Near syncope Left ankle pain Qualifiers: Chronicity: acute Qualified Code(s): M25.572 - Pain in left ankle and joints of left foot - Referrals Referrals: Poncho Shea MD, [Primary Care Provider] - - Patient Instructions - Post Discharge Activity
--- NOTE | 2018-10-24 16:44 | PDOC ---
History of Present Illness - General Chief Complaint: Pain Stated Complaint: LT FOOT PAIN Time Seen by Provider: 10/24/18 15:14 History Source: Patient, Old Records - History of Present Illness Initial Comments: 10/24/18 16:43 83yo M with PMH of CAD (stents 2006 and 2011), CKD, HTN, HLD, Gout presenting to ED with complaints of L ankle swelling with pain that has worsened last night. Pt states he has had on and off L ankle swelling but it has never been as painful as it was yesterday. He states that his ankle started to get so painful that he cannot bear weight on it. He denies injury to the L ankle but states that he felt lightheaded last night and fell without losing consciousness onto his R side but did not injure his L ankle. He states the pain is only at the joint, mainly on the lateral side and is swollen. Denies redness, fever, injury, bites, scratches, chest pain, sob, urinary symptoms, other joint pains, back pain, abdominal pain, n/v/d, changes in vision, numbness /tingling, weakness. He has a remote history of gout which affected his L foot. He has been taking Tylenol without any relief. He says that he has had feelings of lightheadedness for the past week or so. He had an episode last week and needed to squat down. He states that after he did not feel lightheaded but broke out into a sweat. He did not have chest pain at that time. Denies syncope , head injury. PMD: T Lyo PMH: see hpi PSH: Meds: see med rec Allergies: nkda Past History - Past Medical History Allergies/Adverse Reactions: Allergies Allergy/AdvReac Type Severity Reaction Status Date / Time No Known Drug Allergies Allergy Verified 10/24/18 15:03 Home Medications: Ambulatory Orders Aspirin [ASA -] 81 mg PO DAILY 01/10/14 Atorvastatin Ca [Lipitor] 40 mg PO HS 01/10/14 Bimatoprost [Lumigan] 1 drop IO BID 01/10/14 Brimonidine Tartrate [Alphagan 0.15% -] 1 drop OU BID 01/10/14 Cholecalciferol (Vitamin D3) [Vitamin D3] 2,000 unit PO DAILY 01/10/14 Dorzolamide HCl/Timolol Maleat [Cosopt Eye Drops] 5 ml OP BID 01/10/14 Tamsulosin HCl 0.4 mg PO DAILY 01/10/14 Vitamin A/Vitamin D2 [[place] Cod Liver Oil Sfgl] 1 each PO DAILY 01/10/14 Amlodipine Besylate [Norvasc -] 10 mg PO DAILY #30 tablet MDD 2 05/10/18 Atorvastatin Ca [Lipitor] 80 mg PO HS #30 tab 05/10/18 Atorvastatin Ca [Lipitor] 80 mg PO HS #30 tablet MDD 2 05/10/18 Clopidogrel Bisulfate [Plavix -] 75 mg PO DAILY #30 tablet MDD 1 05/10/18 Isosorbide Mononitrate [Imdur -] 30 mg PO BID #30 tab.sr.24h MDD 2 05/10/18 Metoprolol Tartrate [Lopressor -] 25 mg PO BID #30 tablet MDD 2 05/10/18 hydrALAZINE HCL [Apresoline -] 25 mg PO BID #30 tablet MDD 2 05/10/18 Cardiac Disorders: Yes (stents few years ago) COPD: No Diabetes: Yes Disorders: Yes (bph) HTN: Yes Hypercholesterolemia: Yes Other medical history: arthritis, glaucoma, poor kidney function - Surgical History Cardiac Surgery: Yes (CATH) - Immunization History Td Vaccination: No TDAP Vaccination: No Immunization Up to Date: No (unsure) - Suicide/Smoking/Psychosocial Hx Smoking Status: No Smoking History: Never smoked Number of Cigarettes Smoked Daily: 0 Hx Alcohol Use: No Drug/Substance Use Hx: No Hx Substance Use Treatment: No Review of Systems - Review of Systems Is the patient limited Telugu proficient: No Constitutional: No: Symptoms Reported HEENTM: No: Symptoms Reported Respiratory: No: Symptoms reported Cardiac (ROS): Yes: Lightheadedness ABD/GI: No: Symptoms Reported : No: Symptoms Reported Musculoskeletal: Yes: See HPI, Joint Pain, Joint Swelling Integumentary: No: Symptoms Reported Neurological: No: Symptoms reported *Physical Exam - Vital Signs Last Vital Signs Temp Pulse Resp BP Pulse Ox 99.8 F H 75 18 115/55 L 99 10/24/18 14:59 10/24/18 14:59 10/24/18 14:59 10/24/18 14:59 10/24/18 14:59 - Physical Exam General Appearance: Yes: Nourished, Appropriately Dressed. No: Apparent Distress HEENT: positive: EOMI, PATTI Neck: positive: Trachea midline, Supple Respiratory/Chest: positive: Lungs Clear, Normal Breath Sounds Cardiovascular: positive: Regular Rhythm, Regular Rate, S1, S2. negative: Edema , JVD, Murmur Vascular Pulses: Dorsalis-Pedis (R): 2+, Doralis-Pedis (L): 2+ Gastrointestinal/Abdominal: positive: Normal Bowel Sounds, Soft. negative: Tender Musculoskeletal: negative: CVA Tenderness, Vertebral Tenderness Extremity: positive: Normal Capillary Refill, Other (L ankle swelling ttp, no overlying erythema, not warm to the touch. Pain with passive ROM. ) Integumentary: positive: Normal Color, Dry, Warm, Other (chronic dry scaly skin overlying toes and ankles) Neurologic: positive: branner machine tender II-XII NML intact, Fully Oriented, Alert, Normal Mood/ Affect, Normal Response, Motor Strength 07/25 ED Treatment Course - LABORATORY CBC & Chemistry Diagram: 10/24/18 17:58 10/24/18 17:58 - RADIOLOGY Radiology Studies Ordered: Category Date Time Status CHEST PA & LAT [RAD] Stat Radiology 10/24/18 16:37 Ordered Medical Decision Making - Medical Decision Making 83yo M with PMH of CAD (stents 2006 and 2011), CKD, HTN, HLD, Gout presenting to ED with complaints of L ankle swelling with pain that has worsened last night. Pt states he has had on and off L ankle swelling but it has never been as painful as it was yesterday. He states that his ankle started to get so painful that he cannot bear weight on it. He denies injury to the L ankle but states that he felt lightheaded last night and fell without losing consciousness onto his R side but did not injure his L ankle. He states the pain is only at the joint, mainly on the lateral side and is swollen. Denies redness, fever, injury, bites, scratches, chest pain, sob, urinary symptoms, other joint pains, back pain, abdominal pain, n/v/d, changes in vision, numbness /tingling, weakness. He has a remote history of gout which affected his L foot. He has been taking Tylenol without any relief. He says that he has had feelings of lightheadedness for the past week or so. He had an episode last week and needed to squat down. He states that after he did not feel lightheaded but broke out into a sweat. He did not have chest pain at that time. Vitals: bp wnl but on lower end, low grade fever, heart rate wnl, not tachycardic PE: L ankle swelling, ttp no overlying erythema, no warmth, pain with rom of ankle. lungs cta, normal heart sounds Pt seems to have had pre-syncopal episode. no loc. did not hit his head. No chest pain at the time. Pt most likely has gout in ankle, low suspicion for septic arthritis. will order basic labs including ekg, trop, cxr, ankle xray ordered by rme. will give percocet for pain labs: no white count, negative troponin. normal esr, CRP and Uric Acid elevated. Cr 4.5 which is elevated from before, seems to be increasing. Will call Dr. Nelson; cannot give pt toradol or nsaid given ckd. Per Dr. Romero, pt can get colchicine or prednisone but advising against NSAIDS. will give 0.6mg colchicine and 20mg prednisone. CT head. 10/24/18 21:25 ekg: nsr at 68bpm RBBB unchanged from prior ekg. AK 168, QTc 467. new TWI in V2- V4. Pt still unable to stand on foot, pain with light palpation of ankle. Will admit for pre-syncope and gout. Accepted by hospitalist to tele. 10/24/18 22:22 CT: No acute intracranial hemorrhage mass effect or midline shift. The ventricles sulci and basilar cisterns have a normal size and contour. Mild nonspecific periventricular predominant low density throughout the deep white matter is most likely due to mild small vessel ischemic white matter disease. Calcified arteriosclerosis of the cavernous carotids noted. 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 The remainder of the sinuses and mastoid air cells are clear within the field-of -view. The calvarium is intact. 10/24/18 23:42 *DC/Admit/Observation/Transfer Diagnosis at time of Disposition: Near syncope Left ankle pain Qualifiers: Chronicity: acute Qualified Code(s): M25.572 - Pain in left ankle and joints of left foot CKD (chronic kidney disease) Qualifiers: Chronic kidney disease stage: stage 4 (severe) Qualified Code(s): N18.4 - Chronic kidney disease, stage 4 (severe) - Referrals - Patient Instructions - Post Discharge Activity
[2018-10-24 18:08] LABS: BASO % 0.4 % (0-2.0); EOS % 1.8 % (0-4.5); HEMATOCRIT 28.7 % (35.4-49); HEMOGLOBIN 9.5 GM/dL (11.7-16.9); MCH 31.6 pg (25.7-33.7); MEAN CELL VOLUME 95.5 fl (80-96); MEAN PLT VOLUME 7.8 fl (7.5-11.1); MONO % 13.4 % (3.8-10.2); NEUT % 75.4 % (42.8-82.8); PLATELET COUNT 201 K/MM3 (134-434); RBC 3.01 M/mm3 (4.00-5.60); RDW 14.6 % (11.9-15.9); WHITE BLOOD COUNT 6.6 K/mm3 (4.0-10.0)
[2018-10-24 18:41] LABS: ALBUMIN 3.7 g/dl (3.4-5.0); BILIRUBIN,TOTAL 0.5 mg/dL (0.2-1); BLOOD UREA NITROGEN 79.4 mg/dL (7-18); CALCIUM 8.4 mg/dL (8.5-10.1); CREATININE 4.5 mg/dL (0.55-1.3); POTASSIUM 4.5 mmol/L (3.5-5.1); TOT PROT 7.3 g/dl (6.4-8.2)
[2018-10-24 19:12] LABS: INR 1.13 (0.83-1.09); PROTHROMBIN TIME (PATIENT) 13.4 SEC (9.7-13.0)
--- NOTE | 2018-10-24 19:28 | PDOC ---
Documentation entered by Roberta Garcia SCRIBE, acting as scribe for Airam Isaac MD. Airam Isaac MD: This documentation has been prepared by the fantasmaibe, Roberta Garcia SCRIBE, under my direction and personally reviewed by me in its entirety. I confirm that the documentation accurately reflects all work, treatment, procedures, and medical decision making performed by me. Attending Attestation - Resident Resident Name: CortneyThalia - ED Attending Attestation I have performed the following: I have examined & evaluated the patient, The case was reviewed & discussed with the resident, I agree w/resident's findings & plan, Exceptions are as noted - HPI HPI: 10/24/18 17:10 L ankle pain and swelling intermittent for months but it became severe , He fell onto his rt side but did not injure ankle at the time 10/24/18 17:29 The patient is an 83 year old male with a past medical history significant for CAD, HTN. CKD, HLD and Gout (2018) presents to the emergency department with left ankle pain with swelling. The patient reports a chronic history of intermittent left ankle swelling that worsening last night, with difficulty weight bearing. The patient reports suffering a fall yesterday secondary to lightheadedness, however the patient reports he fell on his right side. Denies injuring the left ankle, trauma or injured. Denies fever, chills, chest pain. Allergies: NKDA PCP: Dr. Jessica Shea - Physicial Exam PE: 10/24/18 17:36 GENERAL: Well developed, well nourished. Awake and alert. No acute distress. HEENT: Normocephalic, atraumatic. PERRLA, EOMI. No conjunctival pallor. Sclera are non- icteric. Moist mucous membranes. Oropharynx is clear. NECK: Supple. Full ROM. No JVD. CARDIOVASCULAR: Regular rate and rhythm. No murmurs, rubs, or gallops. Distal pulses are 2+ and symmetric. PULMONARY: No evidence of respiratory distress. Lungs clear to auscultation bilaterally. No wheezing, rales or rhonchi. ABDOMINAL: Soft. Non-tender. Non-distended. No rebound or guarding. MUSCULOSKELETAL No bony deformities or tenderness. No CVA tenderness. EXTREMITIES: +bilateral pedal edema on his left lateral malleolus, there is doughy swelling, no erythema. Skin is warm to touch, with overlining chronic skin changes. Feet is warm, sensation intact, pulses normal. No open wound. Very tender on the lateral malleolus, no 5th metatarsal swelling or pain. No swelling or redness of the left lower extremity. SKIN: Warm and dry. Normal capillary refill. No rashes. No jaundice. NEUROLOGICAL: Alert, awake and oriented. Conversant. PSYCHIATRIC: Cooperative. Good eye contact. Appropriate mood and affect. - Medical Decision Making 10/24/18 18:[address] Romi Nelson. waiting for a call back from Dr. Rizo. 10/24/18 19:27 pt has ckd and cr=4.5 today and was 4.4 last month 10/24/18 19:[address] Rizo about giving this patient medication for this pt's gout and he recommended steroids 40 mg po for 3 days imp CKD, left ankle DJD/gout pt can not ambulate, will discuss w hospitalist 10/24/18 21:53 pt admitted : he had a near syncopal episode ,has worsening CKD, cannot ambulate due to L foot pain
[2018-10-24] MEDS ORDERED: predniSONE 20 MG TABLET (UD) PO ONE (19:31)
[2018-10-24] MEDS ORDERED: COLCHICINE 0.6 MG CAP PO ONE (19:32)
[2018-10-24] MEDS ORDERED: COLCHICINE 0.6 MG CAP ONE (19:51)
[2018-10-24] MEDS ORDERED: predniSONE 20 MG TABLET (UD) ONE (19:51)
[2018-10-24 20:19] LABS: PH,URINE 5.5 (5.0-8.0); URINE APPEARANCE CLEAR; URINE BILIRUBIN NEGATIVE (NEGATIVE); URINE COLOR YELLOW; URINE GLUCOSE (UA) NEGATIVE (NEGATIVE); URINE KETONE NEGATIVE (NEGATIVE); URINE LEUK ESTERASE NEGATIVE (NEGATIVE); URINE NITRITE NEGATIVE (NEGATIVE); URINE PROTEIN NEGATIVE (NEGATIVE); URINE UROBILINOGEN 0.2 mg/dL (0.2-1.0)
--- NOTE | 2018-10-24 21:55 | HP ---
Admitting History and Physical - Primary Care Physician PCP: Poncho Shea MD - Admission Chief Complaint: Left Ankle Pain and Swelling, Lightheadedness, s/p Fall History of Present Illness: This is a83 y/o man with a PMHx of HTN, HLD, CAD s/p stents, Gout (2018, CKD. Who presents to the ED with left ankle pain, swelling difficulty ambulating, lightheadedness s/p fall x 1 day. Patient reports that the left ankle pain and swelling is so bad that he cannot bear weight on the extremity. The patient report eating fish and cheese in his diet, but he avoids canned fish. The patient reports skipping breakfast and going out with his the day before in the hot weather, which he attributes to the lightheadedness. Patient denies fever, chills, cough, SOB, BR[place], CP, palpitations, AP, N/V/D, constipation, dysuria. History Source: Patient Limitations to Obtaining History: No Limitations - Past Medical History Cardiovascular: Yes: CAD, HTN, Hyperlipdemia - Smoking History Smoking history: Never smoked Aproximately how many cigarettes per day: 0 - Alcohol/Substance Use Hx Alcohol Use: No Home Medications - Allergies Allergies/Adverse Reactions: Allergies Allergy/AdvReac Type Severity Reaction Status Date / Time No Known Drug Allergies Allergy Verified 10/24/18 15:03 - Home Medications Home Medications: Ambulatory Orders Aspirin [ASA -] 81 mg PO DAILY 01/10/14 Atorvastatin Ca [Lipitor] 40 mg PO HS 01/10/14 Bimatoprost [Lumigan] 1 drop IO BID 01/10/14 Brimonidine Tartrate [Alphagan 0.15% -] 1 drop OU BID 01/10/14 Cholecalciferol (Vitamin D3) [Vitamin D3] 2,000 unit PO DAILY 01/10/14 Dorzolamide HCl/Timolol Maleat [Cosopt Eye Drops] 5 ml OP BID 01/10/14 Tamsulosin HCl 0.4 mg PO DAILY 01/10/14 Vitamin A/Vitamin D2 [[place] Cod Liver Oil Sfgl] 1 each PO DAILY 01/10/14 Amlodipine Besylate [Norvasc -] 10 mg PO DAILY #30 tablet MDD 2 05/10/18 Atorvastatin Ca [Lipitor] 80 mg PO HS #30 tab 05/10/18 Atorvastatin Ca [Lipitor] 80 mg PO HS #30 tablet MDD 2 05/10/18 Clopidogrel Bisulfate [Plavix -] 75 mg PO DAILY #30 tablet MDD 1 05/10/18 Isosorbide Mononitrate [Imdur -] 30 mg PO BID #30 tab.sr.24h MDD 2 05/10/18 Metoprolol Tartrate [Lopressor -] 25 mg PO BID #30 tablet MDD 2 05/10/18 hydrALAZINE HCL [Apresoline -] 25 mg PO BID #30 tablet MDD 2 05/10/18 Review of Systems - Review of Systems Constitutional: reports: No Symptoms Eyes: reports: No Symptoms HENT: reports: No Symptoms Neck: reports: No Symptoms Cardiovascular: reports: No Symptoms Respiratory: reports: No Symptoms Gastrointestinal: reports: No Symptoms Genitourinary: reports: No Symptoms Breasts: reports: No Symptoms Reported Musculoskeletal: reports: Extremity Pain, Joint Swelling Integumentary: reports: No Symptoms Neurological: reports: Dizziness Endocrine: reports: No Symptoms Hematology/Lymphatic: reports: No Symptoms Psychiatric: reports: No Symptoms Physical Examination Vital Signs: Vital Signs Temperature 99.8 F H 10/24/18 14:59 Pulse Rate 66 10/24/18 21:29 Respiratory Rate 18 10/24/18 14:59 Blood Pressure 121/49 L 10/24/18 21:29 O2 Sat by Pulse Oximetry (%) 99 10/24/18 21:29 Constitutional: Yes: Well Nourished, No Distress, Calm Eyes: Yes: WNL, Conjunctiva Clear, EOM Intact, PERRL HENT: Yes: WNL, Atraumatic, Normocephalic Neck: Yes: WNL, Supple, Trachea Midline Cardiovascular: Yes: WNL, Regular Rate and Rhythm, S1, S2 Respiratory: Yes: WNL, Regular, CTA Bilaterally Gastrointestinal: Yes: WNL, Normal Bowel Sounds, Soft ...Rectal Exam: Yes: Deferred Renal/: Yes: WNL Breast(s): Yes: WNL Musculoskeletal: Yes: Joint Swelling Extremities: Yes: WNL Edema: Yes Edema: LLE: 1+ Peripheral Pulses WNL: Yes Integumentary: Yes: Venous Stasis Changes, Other (dry flaky- feet) Neurological: Yes: WNL, Alert, Oriented ...Motor Strength: WNL Psychiatric: Yes: WNL, Alert, Oriented Labs: CBC, BMP 10/24/18 17:58 10/24/18 17:58 Intake & Output 10/22/18 10/23/18 10/24/18 10/25/18 23:59 23:59 23:59 23:59 Weight 72.575 kg Laboratory Results - last 24 hr 10/24/18 10/24/18 10/24/18 17:58 17:58 17:58 WBC 6.6 RBC 3.01 L Hgb 9.5 L Hct 28.7 L MCV 95.5 MCH 31.6 MCHC 33.0 RDW 14.6 Plt Count 201 MPV 7.8 Absolute Neuts (auto) 5.0 Neutrophils % 75.4 Lymphocytes % 9.0 D Monocytes % 13.4 H Eosinophils % 1.8 Basophils % 0.4 Nucleated RBC % 0 ESR PT with INR INR Sodium 141 Potassium 4.5 Chloride 103 Carbon Dioxide 24 Anion Gap 13 BUN 79.4 H Creatinine 4.5 H Est GFR (CKD-EPI)AfAm 12.94 Est GFR (CKD-EPI)NonAf 11.17 Random Glucose 96 Uric Acid 11.0 H Calcium 8.4 L Magnesium Total Bilirubin 0.5 AST 18 ALT 10 L Alkaline Phosphatase 53 Troponin I < 0.02 C-Reactive Protein 5.1 H Total Protein 7.3 Albumin 3.7 Urine Color Urine Appearance Urine pH Ur Specific [place] Urine Protein Urine Glucose (UA) Urine Ketones Urine Blood Urine Nitrite Urine Bilirubin Urine Urobilinogen Ur Leukocyte Esterase 10/24/18 10/24/18 10/24/18 17:58 17:58 17:58 WBC RBC Hgb Hct MCV MCH MCHC RDW Plt Count MPV Absolute Neuts (auto) Neutrophils % Lymphocytes % Monocytes % Eosinophils % Basophils % Nucleated RBC % ESR 10 PT with INR 13.40 H INR 1.13 H Sodium Potassium Chloride Carbon Dioxide Anion Gap BUN Creatinine Est GFR (CKD-EPI)AfAm Est GFR (CKD-EPI)NonAf Random Glucose Uric Acid Calcium Magnesium 1.4 L Total Bilirubin AST ALT Alkaline Phosphatase Troponin I C-Reactive Protein Total Protein Albumin Urine Color Urine Appearance Urine pH Ur Specific [place] Urine Protein Urine Glucose (UA) Urine Ketones Urine Blood Urine Nitrite Urine Bilirubin Urine Urobilinogen Ur Leukocyte Esterase 10/24/18 20:10 WBC RBC Hgb Hct MCV MCH MCHC RDW Plt Count MPV Absolute Neuts (auto) Neutrophils % Lymphocytes % Monocytes % Eosinophils % Basophils % Nucleated RBC % ESR PT with INR INR Sodium Potassium Chloride Carbon Dioxide Anion Gap BUN Creatinine Est GFR (CKD-EPI)AfAm Est GFR (CKD-EPI)NonAf Random Glucose Uric Acid Calcium Magnesium Total Bilirubin AST ALT Alkaline Phosphatase Troponin I C-Reactive Protein Total Protein Albumin Urine Color Yellow Urine Appearance Clear Urine pH 5.5 Ur Specific [place] 1.009 L Urine Protein Negative Urine Glucose (UA) Negative Urine Ketones Negative Urine Blood Negative Urine Nitrite Negative Urine Bilirubin Negative Urine Urobilinogen 0.2 Ur Leukocyte Esterase Negative Current Medications Generic Name Dose Route Start Last Admin Trade Name Freq PRN Reason Stop Dose Admin Atorvastatin Calcium 80 mg 10/25/18 22:00 Lipitor - PO HS [facility] Brimonidine Tartrate 1 drop 10/25/18 05:59 Alphagan 0.2% - OU BID [facility] Cholecalciferol 1,000 unit 10/25/18 10:00 Vitamin D3 - PO DAILY [facility] Clopidogrel Bisulfate 75 mg 10/25/18 10:00 Plavix - PO DAILY [facility] Diltiazem HCl 120 mg 10/25/18 10:00 Cardizem Cd - PO DAILY [facility] Hydralazine HCl 25 mg 10/25/18 10:00 Apresoline - PO BID [facility] Isosorbide Mononitrate 30 mg 10/25/18 08:00 Ismo - PO BID@0800,1500 [facility] Latanoprost 1 drop 10/25/18 05:58 Xalatan 0.005% Eye Drops - OU HS [facility] Metoprolol Tartrate 25 mg 10/25/18 10:00 Lopressor - PO BID [facility] Tamsulosin HCl 0.4 mg 10/25/18 08:30 Flomax - PO DAILY@0830 [facility] Imaging - Results Chest X-ray: Image Reviewed X-ray: Image Reviewed Cat Scan: Pending EKG: Image Reviewed Problem List - Problems (1) Near syncope Code(s): R55 - SYNCOPE AND COLLAPSE (2) Gout Code(s): M10.9 - GOUT, UNSPECIFIED (3) Left ankle pain Code(s): M25.572 - PAIN IN LEFT ANKLE AND JOINTS OF LEFT FOOT Qualifiers: Chronicity: acute Qualified Code(s): M25.572 - Pain in left ankle and joints of left foot (4) CKD (chronic kidney disease) Code(s): N18.9 - CHRONIC KIDNEY DISEASE, UNSPECIFIED Qualifiers: Chronic kidney disease stage: stage 4 (severe) Qualified Code(s): N18.4 - Chronic kidney disease, stage 4 (severe) (5) Glaucoma Code(s): H40.9 - UNSPECIFIED GLAUCOMA (6) HTN (hypertension) Code(s): I10 - ESSENTIAL (PRIMARY) HYPERTENSION Assessment/Plan This is a 89 y/o man with a PMHx of HTN, HLD, CAD s/p Stents, CKD, Gout (2018) . Admitted for Presyncope, Gout to - Ankle, LILIYA on CKD for further evaluation of their emergent condition. Plan: 1. Presyncope Likely secondary to arrhythmia vs Dehydration Will admit to Telemetry Continue cardiac monitoring Serial Enzymes EKG- reviewed Chest Xray image reviewed no acute process Head CT-pending Appreciate Cardiology consult Patient reports having recent Echo and Carotid Doppler tests- will defer to cardiology Continue home meds with parameters (confirmed with pt's home list, he provided) Neuro checks Orthostatics Fall Precautions 2. Gout Prednisone, Colchicine given in ED Will continue Prednisone w taper CRP 5.1 ESR-nl Uric Acid in am 3. LILIYA on CKD Nephrology consulted in ED- following BMP in am Avoid Nephrotoxic drugs 4. CAD s/p Stents Continue home meds 5. HTN stable Monitor BP Continue home meds Monitor renal function 6. HLD Continue Lipitor FEN Po fluids as tolerated Replete lytes prn Low Na Diet DVT ppx OOB SCDs On Plavix Dispo: Requires Inpatient Care Visit type - Emergency Visit Emergency Visit: Yes ED Registration Date: 10/24/18 Care time: The patient presented to the Emergency Department on the above date and was hospitalized for further evaluation of their emergent condition. - New Patient This patient is new to me today: Yes Date on this admission: 10/25/18 - Critical Care Critical Care patient: No
[2018-10-25 07:38] LABS: ANION GAP 10 MMOL/L (8-16); BLOOD UREA NITROGEN 79.2 mg/dL (7-18); CALCIUM 8.7 mg/dL (8.5-10.1); CHLORIDE 103 mmol/L (98-107); CHOLESTEROL 229 mg/dL (50-200); CO2 27 mmol/L (21-32); CREATININE 4.5 mg/dL (0.55-1.3); GLUCOSE,RANDOM 145 mg/dL (74-106); HDL CHOLESTEROL 64 mg/dL (40-60); SODIUM 140 mmol/L (136-145); TRIGLYCERIDES 66 mg/dL (0-150)
[2018-10-25] MEDS: BRIMONIDINE TARTRATE 0.2% OPHTHALMIC 5 ML BOTTLE OU SCH ×2 (07:46→10:12)
[2018-10-25] MEDS: LATANOPROST 0.005% OPHTH SOLN 2.5ML BOTTLE OU SCH (07:46)
[2018-10-25] MEDS ORDERED: ISOSORBIDE MONONITRATE 10 MG TABLET PO SCH (08:00)
[2018-10-25] MEDS ORDERED: ISOSORBIDE MONONITRATE 60 MG TAB.SR.24H (FP) PO ONE (08:22)
[2018-10-25] MEDS: TAMSULOSIN HCL 0.4 MG CAP PO SCH (08:26)
[2018-10-25] MEDS ORDERED: predniSONE 20 MG TABLET (UD) ONE (08:28)
[2018-10-25] MEDS ORDERED: FUROSEMIDE 40 MG TABLET (FP) ONE (08:28)
[2018-10-25 08:36] LABS: BASO % 0.2 % (0-2.0); EOS % 0.1 % (0-4.5); HEMATOCRIT 27.3 % (35.4-49); HEMOGLOBIN 9.3 GM/dL (11.7-16.9); LYMPH % 5.1 % (8-40); MCH 31.9 pg (25.7-33.7); MCHC 33.9 g/dl (32.0-35.9); MEAN CELL VOLUME 94.2 fl (80-96); MEAN PLT VOLUME 7.8 fl (7.5-11.1); MONO % 1.6 % (3.8-10.2); PLATELET COUNT 215 K/MM3 (134-434); RDW 14.1 % (11.9-15.9); WHITE BLOOD COUNT 4.8 K/mm3 (4.0-10.0)
[2018-10-25] MEDS ORDERED: FUROSEMIDE 40 MG TABLET (FP) PO SCH (10:00)
[2018-10-25] MEDS: predniSONE 20 MG TABLET (UD) PO SCH (10:12)
[2018-10-25] MEDS: hydrALAZINE HCL 25 MG TABLET (FP) PO SCH ×2 (10:12→22:47)
[2018-10-25] MEDS: CHOLECALCIFEROL (VIT D3) 1,000 UNIT (25 MCG) TABLET PO SCH (10:13)
[2018-10-25] MEDS: METOPROLOL TARTRATE 25 MG TABLET (FP) PO SCH ×2 (10:13→22:47)
[2018-10-25] MEDS: CLOPIDOGREL BISULFATE 75 MG TABLET (FP) PO SCH (10:13)
--- NOTE | 2018-10-25 10:37 | CON.CARD ---
Consult Consult Specialty:: cardio - History of Present Illness Chief Complaint: lightheadedness, fall History of Present Illness: 83 M here with lightheadedness and fall. - Past Medical History Cardio/Vascular: Yes: CAD, HTN, Hyperlipdemia - Alcohol/Substance Use Hx Alcohol Use: No - Smoking History Smoking history: Never smoked Aproximately how many cigarettes per day: 0 Home Medications - Allergies Allergies/Adverse Reactions: Allergies Allergy/AdvReac Type Severity Reaction Status Date / Time No Known Drug Allergies Allergy Verified 10/24/18 15:03 - Home Medications Home Medications: Ambulatory Orders Aspirin [ASA -] 81 mg PO DAILY 01/10/14 Atorvastatin Ca [Lipitor] 40 mg PO HS 01/10/14 Bimatoprost [Lumigan] 1 drop IO BID 01/10/14 Brimonidine Tartrate [Alphagan 0.15% -] 1 drop OU BID 01/10/14 Cholecalciferol (Vitamin D3) [Vitamin D3] 2,000 unit PO DAILY 01/10/14 Dorzolamide HCl/Timolol Maleat [Cosopt Eye Drops] 5 ml OP BID 01/10/14 Tamsulosin HCl 0.4 mg PO DAILY 01/10/14 Vitamin A/Vitamin D2 [Mongolian Cod Liver Oil Sfgl] 1 each PO DAILY 01/10/14 Amlodipine Besylate [Norvasc -] 10 mg PO DAILY #30 tablet MDD 2 05/10/18 Atorvastatin Ca [Lipitor] 80 mg PO HS #30 tab 05/10/18 Atorvastatin Ca [Lipitor] 80 mg PO HS #30 tablet MDD 2 05/10/18 Clopidogrel Bisulfate [Plavix -] 75 mg PO DAILY #30 tablet MDD 1 05/10/18 Isosorbide Mononitrate [Imdur -] 30 mg PO BID #30 tab.sr.24h MDD 2 05/10/18 Metoprolol Tartrate [Lopressor -] 25 mg PO BID #30 tablet MDD 2 05/10/18 hydrALAZINE HCL [Apresoline -] 25 mg PO BID #30 tablet MDD 2 05/10/18 Vital Signs: Vital Signs Temperature 98.1 F 10/25/18 08:37 Pulse Rate 71 10/25/18 08:37 Respiratory Rate 18 10/25/18 08:37 Blood Pressure 132/70 10/25/18 08:37 O2 Sat by Pulse Oximetry (%) 97 10/25/18 08:37 - Other Data Labs, Other Data: CBC, BMP 10/25/18 06:25 10/25/18 06:25 INR, PTT INR 1.13 (0.83-1.09) H 10/24/18 17:58 Troponin, BNP 10/24/18 10/25/18 17:58 06:25 Troponin I < 0.02 < 0.02 Troponin, BNP 10/24/18 10/25/18 17:58 06:25 Troponin I < 0.02 < 0.02 Laboratory Tests 05/10/18 10/24/18 10/24/18 05:25 17:58 17:58 WBC Hgb Plt Count Sodium Potassium BUN 50 H Creatinine 2.8 H Magnesium 1.4 L Troponin I < 0.02 Triglycerides Cholesterol Total LDL Cholesterol HDL Cholesterol TSH 10/25/18 10/25/18 06:25 06:25 WBC 4.8 Hgb 9.3 L Plt Count 215 Sodium 140 Potassium 4.0 BUN 79.2 H Creatinine 4.5 H Magnesium Troponin I < 0.02 Triglycerides 66 Cholesterol 229 H Total LDL Cholesterol 134 H HDL Cholesterol 64 H TSH 0.31 L Assessment/Plan echo 04/2018: mild lvh, nl lv/rv, mild mr/tr/ar mpi 05/11 ([place]): no STs. no ischemia or infarct. nl EF. no TID mibi 01/2018: nl mpi, nl lvef ECG: CXR: clear lungs/pleura Assessment/Plan 82M h/o HTN, CAD s/p stents 2006 and 2011, HLD p/w chest pain lightheadedness: -in setting of LILIYA with likely vol depletion -orthostatic BPs -ECG = -troponins neg x 2 -CT head no acute pathology CAD, h/o NSTEMI 05/11: -medically managed due to CKD with high risk of WILLIE and pt stated preferences ( priority to avoid HD) -home meds: aspirin, plavix, atorva 80, imdur 30 bid (added 05/11), metoprolol TARTRATE 25 bid HTN: -home meds as above, plus hydral 25 bid (plus amlodipine 10 while here 05/11--? if taking at home) -bp was soft at 07/[address] pollard (sbp 100s) -advanced CKD--holding RAAS blockers -BPs controlled here. ? orthostatic hypotension at home CKD - baseline creat 2.9-3.5 - renal following. IVF stopped given no improvement, renal fxn at baseline, and pedal edema
--- NOTE | 2018-10-25 11:40 | PN ---
Progress Note, Physician Chief Complaint: patient seen and examined in the ER he states his toe and foot pain is much better complaining of chest pressure earlier today - Current Medication List Current Medications: Active Medications Atorvastatin Calcium (Lipitor -) 80 mg PO HS [facility] Brimonidine Tartrate (Alphagan 0.2% -) 1 drop OU BID [facility] Last Admin: 10/25/18 10:12 Dose: Not Given Cholecalciferol (Vitamin D3 -) 1,000 unit PO DAILY [facility] Last Admin: 10/25/18 10:13 Dose: 1,000 unit Clopidogrel Bisulfate (Plavix -) 75 mg PO DAILY [facility] Last Admin: 10/25/18 10:13 Dose: 75 mg Diltiazem HCl (Cardizem Cd -) 120 mg PO DAILY [facility] Last Admin: 10/25/18 10:12 Dose: 120 mg Furosemide (Lasix -) 80 mg PO DAILY [facility] Last Admin: 10/25/18 10:12 Dose: 80 mg Hydralazine HCl (Apresoline -) 25 mg PO BID [facility] Last Admin: 10/25/18 10:12 Dose: 25 mg Isosorbide Mononitrate (Imdur -) 30 mg PO BID [facility] Latanoprost (Xalatan 0.005% Eye Drops -) 1 drop OU [facility] Last Admin: 10/25/18 07:46 Dose: Not Given Metoprolol Tartrate (Lopressor -) 25 mg PO BID [facility] Last Admin: 10/25/18 10:13 Dose: 25 mg Prednisone (Deltasone -) 40 mg PO DAILY [facility] Last Admin: 10/25/18 10:12 Dose: 40 mg Tamsulosin HCl (Flomax -) 0.4 mg PO DAILY@0830 [facility] Last Admin: 10/25/18 08:26 Dose: 0.4 mg - Objective Vital Signs: Vital Signs Temperature 98.1 F 10/25/18 08:37 Pulse Rate 71 10/25/18 08:37 Respiratory Rate 18 10/25/18 08:37 Blood Pressure 132/70 10/25/18 08:37 O2 Sat by Pulse Oximetry (%) 97 10/25/18 08:37 Constitutional: Yes: Calm Cardiovascular: Yes: Regular Rate and Rhythm, S1, S2 Respiratory: Yes: CTA Bilaterally Gastrointestinal: Yes: Normal Bowel Sounds, Soft Extremities: Yes: Other (chronic skin changes, venous stasis changes flaky skin) Neurological: Yes: Alert, Oriented Labs: CBC, BMP 10/25/18 06:25 10/25/18 06:25 INR, PTT INR 1.13 (0.83-1.09) H 10/24/18 17:58 Problem List - Problems (1) CKD (chronic kidney disease) Assessment/Plan: irasema on ckd renal eval got lasix today- will hold lasix Code(s): N18.9 - CHRONIC KIDNEY DISEASE, UNSPECIFIED Qualifiers: Chronic kidney disease stage: stage 4 (severe) Qualified Code(s): N18.4 - Chronic kidney disease, stage 4 (severe) (2) Gout Assessment/Plan: s/p colchicine on prednisone symptoms improved Code(s): M10.9 - GOUT, UNSPECIFIED (3) Near syncope Assessment/Plan: ct head no acute pathology stress test on 05/10normal left ventricle contraction LV ejection fraction is 75% echo done earlier this year shows left ventricle hypertrophy CE 2 sets negative Code(s): R55 - SYNCOPE AND COLLAPSE (4) Chest pain Assessment/Plan: ce 2 sets negative imdur ,hydralazine and cardizem and lopressor Code(s): R07.9 - CHEST PAIN, UNSPECIFIED (5) Glaucoma Assessment/Plan: eye drops Code(s): H40.9 - UNSPECIFIED GLAUCOMA
[2018-10-25 13:32] LABS: ANISOCYTOSIS 1+; MACROCYTOSIS 1+; OVALOCYTE 1+; PLATELET ESTIMATE NORMAL
--- NOTE | 2018-10-25 15:57 | CON.CARD ---
Cardiology Consult (text) - Consultation Consultation Note: Consult Specialty:: Cardiology Referred by:: Medicine Reason for Consultation:: chest pain, s/p fall - History of Present Illness Chief Complaint: chest pain, s/p fall History of Present Illness: 83M h/o HTN, CAD s/p stents 2006 and 2011, HLD p/w fall. [place] unsteady yesterday due to foot pain, tripped and fell. no dizziness, lightheadedness. did not lose consciousness. While in ER this AM felt intermittent chest pain, worse when moving around in bed. Still has pain that is mild, lasts a few seconds and goes away. Gout improved after receiving colchicine in ER. Sees Dr. Johnson for cardio. - Past Medical History Cardio/Vascular: Yes: CAD, HTN, Hyperlipdemia - Alcohol/Substance Use Hx Alcohol Use: No - Smoking History Smoking history: Never smoked Aproximately how many cigarettes per day: 0 Home Medications - Allergies Allergies/Adverse Reactions: Allergies Allergy/AdvReac Type Severity Reaction Status Date / Time No Known Drug Allergies Allergy Verified 10/24/18 15:03 Ambulatory Orders Aspirin [ASA -] 81 mg PO DAILY 01/10/14 Atorvastatin Ca [Lipitor] 40 mg PO HS 01/10/14 Bimatoprost [Lumigan] 1 drop IO BID 01/10/14 Brimonidine Tartrate [Alphagan 0.15% -] 1 drop OU BID 01/10/14 Cholecalciferol (Vitamin D3) [Vitamin D3] 2,000 unit PO DAILY 01/10/14 Dorzolamide HCl/Timolol Maleat [Cosopt Eye Drops] 5 ml OP BID 01/10/14 Tamsulosin HCl 0.4 mg PO DAILY 01/10/14 Vitamin A/Vitamin D2 [Greek Cod Liver Oil Sfgl] 1 each PO DAILY 01/10/14 Amlodipine Besylate [Norvasc -] 10 mg PO DAILY #30 tablet MDD 2 05/10/18 Atorvastatin Ca [Lipitor] 80 mg PO HS #30 tab 05/10/18 Atorvastatin Ca [Lipitor] 80 mg PO HS #30 tablet MDD 2 05/10/18 Clopidogrel Bisulfate [Plavix -] 75 mg PO DAILY #30 tablet MDD 1 05/10/18 Isosorbide Mononitrate [Imdur -] 30 mg PO BID #30 tab.sr.24h MDD 2 05/10/18 Metoprolol Tartrate [Lopressor -] 25 mg PO BID #30 tablet MDD 2 05/10/18 hydrALAZINE HCL [Apresoline -] 25 mg PO BID #30 tablet MDD 2 05/10/18 Family Disease History - Family Disease History Family History: Unremarkable Review of Systems - Review of Systems Constitutional: reports: No Symptoms Eyes: reports: No Symptoms HENT: reports: No Symptoms Neck: reports: No Symptoms Cardiovascular: reports: Chest Pain Respiratory: reports: No Symptoms Gastrointestinal: reports: No Symptoms Genitourinary: reports: No Symptoms Musculoskeletal: reports: No Symptoms Integumentary: reports: No Symptoms Neurological: reports: No Symptoms Endocrine: reports: No Symptoms Hematology/Lymphatic: reports: No Symptoms Psychiatric: reports: No Symptoms Vital Signs Period Temp Pulse Resp BP Sys/Stinson Pulse Ox Last 24 Hr 98.1 F-98.7 F 66-71 18-18 114-132/49-70 97-99 Constitutional: Yes: No Distress, Calm Eyes: Yes: Conjunctiva Clear, EOM Intact HENT: Yes: Atraumatic, Normocephalic Neck: Yes: Supple, Trachea Midline Respiratory: Yes: Regular, CTA Bilaterally Gastrointestinal: Yes: Normal Bowel Sounds, Soft Cardiovascular: Yes: Regular Rate and Rhythm JVD: No Carotid Bruit: No PMI: Non-Displaced Heart Sounds: Yes: S1, S2 Musculoskeletal: No: Back Pain Extremities: No: Cold Edema: No Peripheral Pulses WNL: Yes Peripheral Pulses: 2+ Left Doralis Pedis, 2+ Right Dorsalis Pedis Integumentary: No: Jaundice Neurological: Yes: Alert, Oriented Psychiatric: No: Agitated Laboratory Last Values WBC 4.8 K/mm3 (4.0-10.0) 10/25/18 06:25 RBC 2.90 M/mm3 (4.00-5.60) L 10/25/18 06:25 Hgb 9.3 GM/dL (11.7-16.9) L 10/25/18 06:25 Hct 27.3 % (35.4-49) L 10/25/18 06:25 MCV 94.2 fl (80-96) 10/25/18 06:25 MCH 31.9 pg (25.7-33.7) 10/25/18 06:25 MCHC 33.9 g/dl (32.0-35.9) 10/25/18 06:25 RDW 14.1 % (11.9-15.9) 10/25/18 06:25 Plt Count 215 K/MM3 (134-434) 10/25/18 06:25 MPV 7.8 fl (7.5-11.1) 10/25/18 06:25 Absolute Neuts (auto) 4.5 K/mm3 (1.5-8.0) 10/25/18 06:25 Neutrophils % 93.0 % (42.8-82.8) H D 10/25/18 06:25 Neutrophils % (Manual) 88.0 % (42.8-82.8) H 10/25/18 06:25 Band Neutrophils % 1.0 % 10/25/18 06:25 Lymphocytes % 5.1 % (8-40) L D 10/25/18 06:25 Lymphocytes % (Manual) 6.0 % (8-40) L 10/25/18 06:25 Monocytes % 1.6 % (3.8-10.2) L D 10/25/18 06:25 Monocytes % (Manual) 3 % (3.8-10.2) L 10/25/18 06:25 Eosinophils % 0.1 % (0-4.5) D 10/25/18 06:25 Eosinophils % (Manual) 0.0 % (0-4.5) 10/25/18 06:25 Basophils % 0.2 % (0-2.0) 10/25/18 06:25 Basophils % (Manual) 1.0 % (0-2.0) 10/25/18 06:25 Myelocytes % (Man) 0 % (0-2) 10/25/18 06:25 Promyelocytes % (Man) 0 % (0-2) 10/25/18 06:25 Blast Cells % (Manual) 0 % (0-0) 10/25/18 06:25 Nucleated RBC % 0 % (0-0) 10/25/18 06:25 Metamyelocytes 1 % (0-2) 10/25/18 06:25 Hypochromia 0 10/25/18 06:25 Platelet Estimate Normal 10/25/18 06:25 Polychromasia 0 10/25/18 06:25 Poikilocytosis 0 10/25/18 06:25 Anisocytosis 1+ 10/25/18 06:25 Microcytosis 0 10/25/18 06:25 Macrocytosis 1+ 10/25/18 06:25 Ovalocytes 1+ 10/25/18 06:25 ESR 10 mm/hr (0-20) 10/24/18 17:58 PT with INR 13.40 SEC (9.7-13.0) H 10/24/18 17:58 INR 1.13 (0.83-1.09) H 10/24/18 17:58 Sodium 140 mmol/L (136-145) 10/25/18 06:25 Potassium 4.0 mmol/L (3.5-5.1) 10/25/18 06:25 Chloride 103 mmol/L (98-107) 10/25/18 06:25 Carbon Dioxide 27 mmol/L (21-32) 10/25/18 06:25 Anion Gap 10 MMOL/L (8-16) 10/25/18 06:25 BUN 79.2 mg/dL (7-18) H 10/25/18 06:25 Creatinine 4.5 mg/dL (0.55-1.3) H 10/25/18 06:25 Est GFR (CKD-EPI)AfAm 12.94 10/25/18 06:25 Est GFR (CKD-EPI)NonAf 11.17 10/25/18 06:25 Random Glucose 145 mg/dL (74-106) H 10/25/18 06:25 Uric Acid 11.0 mg/dL (2.6-7.2) H 10/25/18 06:25 Calcium 8.7 mg/dL (8.5-10.1) 10/25/18 06:25 Magnesium 1.4 mg/dL (1.8-2.4) L 10/24/18 17:58 Total Bilirubin 0.5 mg/dL (0.2-1) 10/24/18 17:58 AST 18 U/L (15-37) 10/24/18 17:58 ALT 10 U/L (13-61) L 10/24/18 17:58 Alkaline Phosphatase 53 U/L (45-117) 10/24/18 17:58 Troponin I < 0.02 ng/ml (0.00-0.05) 10/25/18 06:25 C-Reactive Protein 5.1 MG/DL (0.00-0.3) H 10/24/18 17:58 Total Protein 7.3 g/dl (6.4-8.2) 10/24/18 17:58 Albumin 3.7 g/dl (3.4-5.0) 10/24/18 17:58 Triglycerides 66 mg/dL (0-150) 10/25/18 06:25 Cholesterol 229 mg/dL (50-200) H 10/25/18 06:25 Total LDL Cholesterol 134 mg/dL (5-100) H 10/25/18 06:25 HDL Cholesterol 64 mg/dL (40-60) H 10/25/18 06:25 TSH 0.31 uIU/ml (0.358-3.74) L 10/25/18 06:25 Urine Color Yellow 10/24/18 20:10 Urine Appearance Clear 10/24/18 20:10 Urine pH 5.5 (5.0-8.0) 10/24/18 20:10 Ur Specific [place] 1.009 (1.010-1.035) L 10/24/18 20:10 Urine Protein Negative (NEGATIVE) 10/24/18 20:10 Urine Glucose (UA) Negative (NEGATIVE) 10/24/18 20:10 Urine Ketones Negative (NEGATIVE) 10/24/18 20:10 Urine Blood Negative (NEGATIVE) 10/24/18 20:10 Urine Nitrite Negative (NEGATIVE) 10/24/18 20:10 Urine Bilirubin Negative (NEGATIVE) 10/24/18 20:10 Urine Urobilinogen 0.2 mg/dL (0.2-1.0) 10/24/18 20:10 Ur Leukocyte Esterase Negative (NEGATIVE) 10/24/18 20:10 Assessment/Plan EKG: sinus, old inf infarct, RBBB, no ischemic changes CXR: no acute process mibi 04/2018: no ischemia, nl lvef echo 04/2018: mild lvh, nl lvef, nl rv, mild mr/tr/ar tele: sinus 83M h/o HTN, CAD s/p stents 2006 and 2011, HLD p/w fall, chest pain in ER s/p fall, gout - no dizziness, syncope - monitoring on tele - no events - history c/w mechanical fall in setting of foot pain from gout - manage per primary chest pain, h/o CAD - trop neg x 2, EKG no ischemic changes - unlikely ACS - mibi unremarkable 04/2018 - history more consistent with MSK - monitoring on tele - cont aspirin, statin, plavix, imdur, bb HTN -cont home meds HLD - not controlled - unclear if taking statin - continue atorvastatin 80 mg daily LILIYA on CKD - nephrology consulted
[2018-10-25] MEDS ORDERED: ACETAMINOPHEN 325 MG TABLET (FP) PO PRN (16:57)
[2018-10-25] MEDS ORDERED: COLCHICINE 0.6 MG CAP PO ONE (16:57)
--- NOTE | 2018-10-25 17:20 | CONSULT ---
Consult - text type - Consultation Consultation Note: Renal consult for LILIYA/CKD This is a 83 year old gentleman with history of CKD stage 4, CAD s/p PCI and stents, hypertension, BPH who presented with complaints of left ankle pain and admitted for acute gout and LILIYA on CKD. Pt also reports some chest discomfort in the ED. Denies any NSAID use. No recent IV contrast exposure. Denies any flank pain. Is on diuretics home. Denies any sob, abdominal pain, nausea, vomiting or diarrhea. PMhx: as above Allergies: NKDA Family Hx: NC Social Hx: No T/A/D ROS: as per HPI, all other pertinent ros negative Home Medications Medication Instructions Recorded Aspirin [ASA -] 81 mg PO DAILY 01/10/14 Atorvastatin Ca [Lipitor] 40 mg PO HS 01/10/14 Bimatoprost [Lumigan] 1 drop IO BID 01/10/14 Brimonidine Tartrate [Alphagan 1 drop OU BID 01/10/14 0.15% -] Cholecalciferol (Vitamin D3) 2,000 unit PO DAILY 01/10/14 [Vitamin D3] Dorzolamide HCl/Timolol Maleat 5 ml OP BID 01/10/14 [Cosopt Eye Drops] Tamsulosin HCl 0.4 mg PO DAILY 01/10/14 Vitamin A/Vitamin D2 [Yemeni 1 each PO DAILY 01/10/14 Cod Liver Oil Sfgl] Amlodipine Besylate [Norvasc -] 10 mg PO DAILY #30 tablet MDD 2 05/10/18 Atorvastatin Ca [Lipitor] 80 mg PO HS #30 tab 05/10/18 Atorvastatin Ca [Lipitor] 80 mg PO HS #30 tablet MDD 2 05/10/18 Clopidogrel Bisulfate [Plavix -] 75 mg PO DAILY #30 tablet MDD 1 05/10/18 Isosorbide Mononitrate [Imdur -] 30 mg PO BID #30 tab.sr.24h MDD 2 05/10/18 Metoprolol Tartrate [Lopressor -] 25 mg PO BID #30 tablet MDD 2 05/10/18 hydrALAZINE HCL [Apresoline -] 25 mg PO BID #30 tablet MDD 2 05/10/18 Vital Signs Temperature 98.6 F 10/25/18 13:20 Pulse Rate 62 10/25/18 16:00 Respiratory Rate 13 10/25/18 16:00 Blood Pressure 138/63 10/25/18 16:00 O2 Sat by Pulse Oximetry (%) 99 10/25/18 15:00 Intake & Output 10/22/18 10/23/18 10/24/18 10/25/18 23:59 23:59 23:59 23:59 Intake Total 240 Balance 240 Weight 72.575 kg 72.529 kg NAD awake and alert neck supple no JVD RRR CTA soft NT/ND no LE edema, clubbing or cyanosis no bladder distension CBC, BMP 10/25/18 06:25 10/25/18 06:25 Current Medications Acetaminophen (Tylenol -) 650 mg PO Q6H PRN PRN Reason: PAIN OR FEVER Atorvastatin Calcium (Lipitor -) 80 mg PO HS [facility] Brimonidine Tartrate (Alphagan 0.2% -) 1 drop OU BID [facility] Last Admin: 10/25/18 10:12 Dose: Not Given Cholecalciferol (Vitamin D3 -) 1,000 unit PO DAILY [facility] Last Admin: 10/25/18 10:13 Dose: 1,000 unit Clopidogrel Bisulfate (Plavix -) 75 mg PO DAILY [facility] Last Admin: 10/25/18 10:13 Dose: 75 mg Colchicine (Colcrys) 0.3 mg PO ONCE ONE Stop: 10/25/18 16:58 Diltiazem HCl (Cardizem Cd -) 120 mg PO DAILY [facility] Last Admin: 10/25/18 10:12 Dose: 120 mg Furosemide (Lasix -) 80 mg PO DAILY [facility] Last Admin: 10/25/18 10:12 Dose: 80 mg Hydralazine HCl (Apresoline -) 25 mg PO BID [facility] Last Admin: 10/25/18 10:12 Dose: 25 mg Isosorbide Mononitrate (Imdur -) 30 mg PO BID [facility] Latanoprost (Xalatan 0.005% Eye Drops -) 1 drop OU HS [facility] Last Admin: 10/25/18 07:46 Dose: Not Given Metoprolol Tartrate (Lopressor -) 25 mg PO BID [facility] Last Admin: 10/25/18 10:13 Dose: 25 mg Prednisone (Deltasone -) 40 mg PO DAILY [facility] Last Admin: 10/25/18 10:12 Dose: 40 mg Tamsulosin HCl (Flomax -) 0.4 mg PO DAILY@0830 [facility] Last Admin: 10/25/18 08:26 Dose: 0.4 mg 83 year old gentleman with history of CKD stage 4, CAD s/p PCI and stents, hypertension, BPH who presented with complaints of left ankle pain and admitted for acute gout and LILIYA on CKD. #Acute Kidney Injury #CKD stage 4 #Acute Gout #Chest pain r/o ACS #BPH #Anemia Cr was 4.4 on 09/2015 Check urine studies for FeUrea, FeNa, UPCR hold diuretics for now Avoid NSAIDs for pain control Continue prednisone for acute Gout, check uric acid Cardiology follow up continue flomax check iron studies for anemia Thank you Carlos Avery DO
[2018-10-25 18:58] LABS: RATIO URIN PROTEIN/URIN CREAT 0.99 MG/DL
[2018-10-25] MEDS: ISOSORBIDE MONONITRATE 30 MG TAB.SR.24H (FP) PO SCH (22:47)
[2018-10-25] MEDS: ATORVASTATIN CA 80 MG TABLET (FP) PO SCH (22:47)
[2018-10-26] MEDS: BRIMONIDINE TARTRATE 0.2% OPHTHALMIC 5 ML BOTTLE OU SCH ×3 (00:10→22:39)
[2018-10-26] MEDS: LATANOPROST 0.005% OPHTH SOLN 2.5ML BOTTLE OU SCH ×2 (00:10→22:39)
[2018-10-26 07:00] LABS: BASO % 0.4 % (0-2.0); HEMATOCRIT 28.5 % (35.4-49); HEMOGLOBIN 9.7 GM/dL (11.7-16.9); LYMPH % 4.4 % (8-40); MCH 31.9 pg (25.7-33.7); MCHC 33.9 g/dl (32.0-35.9); MEAN PLT VOLUME 7.9 fl (7.5-11.1); MONO % 6.9 % (3.8-10.2); NEUT % 88.3 % (42.8-82.8); PLATELET COUNT 249 K/MM3 (134-434); RBC 3.03 M/mm3 (4.00-5.60); WHITE BLOOD COUNT 9.4 K/mm3 (4.0-10.0)
[2018-10-26 07:20] LABS: ALBUMIN 3.4 g/dl (3.4-5.0); BILIRUBIN,TOTAL 0.5 mg/dL (0.2-1); BLOOD UREA NITROGEN 84.1 mg/dL (7-18); CALCIUM 8.5 mg/dL (8.5-10.1); CREATININE 4.2 mg/dL (0.55-1.3); MAGNESIUM 1.4 mg/dL (1.8-2.4); PHOSPHOROUS 4.2 mg/dL (2.5-4.9); POTASSIUM 3.9 mmol/L (3.5-5.1); TOT PROT 7.1 g/dl (6.4-8.2); URIC ACID 11.2 mg/dL (2.6-7.2)
[2018-10-26] MEDS: TAMSULOSIN HCL 0.4 MG CAP PO SCH (08:11)
--- NOTE | 2018-10-26 08:44 | PN ---
Progress Note, Physician - Current Medication List Current Medications: Active Medications Acetaminophen (Tylenol -) 650 mg PO Q6H PRN PRN Reason: PAIN OR FEVER Atorvastatin Calcium (Lipitor -) 80 mg PO HS [facility] Last Admin: 10/25/18 22:47 Dose: 80 mg Brimonidine Tartrate (Alphagan 0.2% -) 1 drop OU BID [facility] Last Admin: 10/26/18 00:10 Dose: 1 drop Cholecalciferol (Vitamin D3 -) 1,000 unit PO DAILY [facility] Last Admin: 10/25/18 10:13 Dose: 1,000 unit Clopidogrel Bisulfate (Plavix -) 75 mg PO DAILY [facility] Last Admin: 10/25/18 10:13 Dose: 75 mg Diltiazem HCl (Cardizem Cd -) 120 mg PO DAILY [facility] Last Admin: 10/25/18 10:12 Dose: 120 mg Furosemide (Lasix -) 80 mg PO DAILY [facility] Last Admin: 10/25/18 10:12 Dose: 80 mg Hydralazine HCl (Apresoline -) 25 mg PO BID [facility] Last Admin: 10/25/18 22:47 Dose: 25 mg Isosorbide Mononitrate (Imdur -) 30 mg PO BID [facility] Last Admin: 10/25/18 22:47 Dose: 30 mg Latanoprost (Xalatan 0.005% Eye Drops -) 1 drop OU [facility] Last Admin: 10/26/18 00:10 Dose: 1 drop Metoprolol Tartrate (Lopressor -) 25 mg PO BID [facility] Last Admin: 10/25/18 22:47 Dose: 25 mg Prednisone (Deltasone -) 40 mg PO DAILY [facility] Last Admin: 10/25/18 10:12 Dose: 40 mg Tamsulosin HCl (Flomax -) 0.4 mg PO DAILY@0830 [facility] Last Admin: 10/25/18 08:26 Dose: 0.4 mg - Objective Vital Signs: Vital Signs Temperature 98.1 F 10/26/18 05:00 Pulse Rate 69 10/26/18 05:00 Respiratory Rate 18 10/26/18 05:00 Blood Pressure 109/47 L 10/26/18 05:00 O2 Sat by Pulse Oximetry (%) 99 10/25/18 21:00 Cardiovascular: Yes: Regular Rate and Rhythm Respiratory: Yes: Regular, CTA Bilaterally Gastrointestinal: Yes: Normal Bowel Sounds, Soft. No: Tenderness Edema: No Labs: CBC, BMP 10/26/18 05:55 10/26/18 05:55 INR, PTT INR 1.13 (0.83-1.09) H 10/24/18 17:58 Assessment/Plan - Problems (1) CKD (chronic kidney disease) Assessment/Plan: irasema on ckd renal eval got lasix today- will hold lasix Code(s): N18.9 - CHRONIC KIDNEY DISEASE, UNSPECIFIED Qualifiers: Chronic kidney disease stage: stage 4 (severe) Qualified Code(s): N18.4 - Chronic kidney disease, stage 4 (severe) (2) Gout Assessment/Plan: s/p colchicine on prednisone symptoms improved Code(s): M10.9 - GOUT, UNSPECIFIED (3) Near syncope Assessment/Plan: ct head no acute pathology stress test on 05/10 normal left ventricle contraction LV ejection fraction is 75 % echo done earlier this year shows left ventricle hypertrophy CE 2 sets negative Code(s): R55 - SYNCOPE AND COLLAPSE (4) Chest pain Assessment/Plan: ce 2 sets negative imdur ,hydralazine and cardizem and lopressor CARDIO NOTED Code(s): R07.9 - CHEST PAIN, UNSPECIFIED (5) Glaucoma Assessment/Plan: eye drops Code(s): H40.9 - UNSPECIFIED GLAUCOMA
[2018-10-26] MEDS: CLOPIDOGREL BISULFATE 75 MG TABLET (FP) PO SCH (10:10)
[2018-10-26] MEDS: predniSONE 20 MG TABLET (UD) PO SCH (10:10)
[2018-10-26] MEDS: CHOLECALCIFEROL (VIT D3) 1,000 UNIT (25 MCG) TABLET PO SCH (10:11)
[2018-10-26] MEDS: hydrALAZINE HCL 25 MG TABLET (FP) PO SCH ×2 (10:12→22:39)
[2018-10-26] MEDS: METOPROLOL TARTRATE 25 MG TABLET (FP) PO SCH ×2 (10:12→22:39)
[2018-10-26] MEDS: ISOSORBIDE MONONITRATE 30 MG TAB.SR.24H (FP) PO SCH ×2 (10:12→22:39)
--- NOTE | 2018-10-26 12:34 | PN ---
Progress Note (short form) - Note Progress Note: s: intermittent chest pain lasting few seconds at a time, worse with turning in bed. no dyspnea, palps, dizziness Current Medications Acetaminophen (Tylenol -) 650 mg PO Q6H PRN PRN Reason: PAIN OR FEVER Atorvastatin Calcium (Lipitor -) 80 mg PO HS [facility] Last Admin: 10/25/18 22:47 Dose: 80 mg Brimonidine Tartrate (Alphagan 0.2% -) 1 drop OU BID [facility] Last Admin: 10/26/18 10:16 Dose: 1 drop Cholecalciferol (Vitamin D3 -) 1,000 unit PO DAILY [facility] Last Admin: 10/26/18 10:11 Dose: 1,000 unit Clopidogrel Bisulfate (Plavix -) 75 mg PO DAILY [facility] Last Admin: 10/26/18 10:10 Dose: 75 mg Diltiazem HCl (Cardizem Cd -) 120 mg PO DAILY [facility] Last Admin: 10/26/18 10:11 Dose: 120 mg Furosemide (Lasix -) 80 mg PO DAILY [facility] Last Admin: 10/25/18 10:12 Dose: 80 mg Hydralazine HCl (Apresoline -) 25 mg PO BID [facility] Last Admin: 10/26/18 10:12 Dose: 25 mg Isosorbide Mononitrate (Imdur -) 30 mg PO BID [facility] Last Admin: 10/26/18 10:12 Dose: 30 mg Latanoprost (Xalatan 0.005% Eye Drops -) 1 drop OU [facility] Last Admin: 10/26/18 00:10 Dose: 1 drop Metoprolol Tartrate (Lopressor -) 25 mg PO BID [facility] Last Admin: 10/26/18 10:12 Dose: 25 mg Prednisone (Deltasone -) 40 mg PO DAILY [facility] Last Admin: 10/26/18 10:10 Dose: 40 mg Tamsulosin HCl (Flomax -) 0.4 mg PO DAILY@0830 [facility] Last Admin: 10/26/18 08:11 Dose: 0.4 mg Vital Signs Period Temp Pulse Resp BP Sys/Stinson Pulse Ox Last 24 Hr 98 F-98.7 F 62-94 13-18 109-138/47-88 99-99 Constitutional: Yes: No Distress, Calm Eyes: Yes: Conjunctiva Clear, EOM Intact HENT: Yes: Atraumatic, Normocephalic Neck: Yes: Supple, Trachea Midline Respiratory: Yes: Regular, CTA Bilaterally Gastrointestinal: Yes: Normal Bowel Sounds, Soft Cardiovascular: Yes: Regular Rate and Rhythm JVD: No Carotid Bruit: No PMI: Non-Displaced Heart Sounds: Yes: S1, S2 Musculoskeletal: No: Back Pain Extremities: No: Cold Edema: No Peripheral Pulses WNL: Yes Peripheral Pulses: 2+ Left Doralis Pedis, 2+ Right Dorsalis Pedis Integumentary: No: Jaundice Neurological: Yes: Alert, Oriented Psychiatric: No: Agitated Assessment/Plan EKG: sinus, old inf infarct, RBBB, no ischemic changes CXR: no acute process mibi 04/2018: no ischemia, nl lvef echo 04/2018: mild lvh, nl lvef, nl rv, mild mr/tr/ar tele: sinus 83M h/o HTN, CAD s/p stents 2006 and 2011, HLD p/w fall, chest pain s/p fall, gout - no dizziness, syncope - monitoring on tele - no events - history c/w mechanical fall in setting of foot pain from gout - manage per primary chest pain, h/o CAD - trop neg x 2, EKG no ischemic changes - unlikely ACS - mibi unremarkable 04/2018 - history more consistent with MSK - monitoring on tele - cont aspirin, statin, plavix, imdur, bb HTN -cont home meds HLD - not controlled - unclear if taking statin at home - continue atorvastatin 80 mg daily LILIYA on CKD - nephrology consulted, holding lasix
--- NOTE | 2018-10-26 13:57 | PN ---
Progress Note (short form) - Note Progress Note: Renal follow up for LILIYA on CKD Pt seen and examined at the bedside awake and alert ankle feels the same as yesterday but improved from prior to admission denies any sob, cp, abd pain, fever or chills making urine Vital Signs Temperature 98.1 F 10/26/18 05:00 Pulse Rate 69 10/26/18 05:00 Respiratory Rate 18 10/26/18 05:00 Blood Pressure 109/47 L 10/26/18 05:00 O2 Sat by Pulse Oximetry (%) 99 10/25/18 21:00 Intake & Output 10/23/18 10/24/18 10/25/18 10/26/18 23:59 23:59 23:59 23:59 Intake Total 240 Balance 240 Weight 72.575 kg 72.529 kg NAD awake and alert neck supple no JVD RRR CTA soft NT/ND no LE edema, clubbing or cyanosis no bladder distension CBC, BMP 10/26/18 05:55 10/26/18 05:55 Current Medications Acetaminophen (Tylenol -) 650 mg PO Q6H PRN PRN Reason: PAIN OR FEVER Atorvastatin Calcium (Lipitor -) 80 mg PO HS [facility] Last Admin: 10/25/18 22:47 Dose: 80 mg Brimonidine Tartrate (Alphagan 0.2% -) 1 drop OU BID [facility] Last Admin: 10/26/18 10:16 Dose: 1 drop Cholecalciferol (Vitamin D3 -) 1,000 unit PO DAILY [facility] Last Admin: 10/26/18 10:11 Dose: 1,000 unit Clopidogrel Bisulfate (Plavix -) 75 mg PO DAILY [facility] Last Admin: 10/26/18 10:10 Dose: 75 mg Diltiazem HCl (Cardizem Cd -) 120 mg PO DAILY [facility] Last Admin: 10/26/18 10:11 Dose: 120 mg Furosemide (Lasix -) 80 mg PO DAILY [facility] Last Admin: 10/25/18 10:12 Dose: 80 mg Hydralazine HCl (Apresoline -) 25 mg PO BID [facility] Last Admin: 10/26/18 10:12 Dose: 25 mg Sodium Chloride (Normal Saline -) 1,000 mls @ 75 mls/hr IV ASDIR [facility] Stop: 10/27/18 05:59 Isosorbide Mononitrate (Imdur -) 30 mg PO BID [facility] Last Admin: 10/26/18 10:12 Dose: 30 mg Latanoprost (Xalatan 0.005% Eye Drops -) 1 drop OU HS [facility] Last Admin: 10/26/18 00:10 Dose: 1 drop Metoprolol Tartrate (Lopressor -) 25 mg PO BID [facility] Last Admin: 10/26/18 10:12 Dose: 25 mg Prednisone (Deltasone -) 40 mg PO DAILY [facility] Last Admin: 10/26/18 10:10 Dose: 40 mg Tamsulosin HCl (Flomax -) 0.4 mg PO DAILY@0830 [facility] Last Admin: 10/26/18 08:11 Dose: 0.4 mg 83 year old gentleman with history of CKD stage 4, CAD s/p PCI and stents, hypertension, BPH who presented with complaints of left ankle pain and admitted for acute gout and LILIYA on CKD. #Acute Kidney Injury #CKD stage 4 #Acute Gout #Chest pain r/o ACS #BPH #Anemia Cr was 4.4 on 09/2015 urine studies show FeUrea of 52% and UPCR of 0.9 consistent with some degree of tubular damage will give trial of isotonic saline to see if we can expedite renal recovery hold diuretics for now Avoid NSAIDs for pain control Continue prednisone for acute Gout uric acid levels are high, will need allopurionol or uloric but would wait until acute flare is over prior to staring Cardiology follow up continue flomax Thank you Carlos Avery DO
[2018-10-26] MEDS ORDERED: SODIUM CHLORIDE 1,000 ML IV SCH (14:00)
[2018-10-26] MEDS: ATORVASTATIN CA 80 MG TABLET (FP) PO SCH (22:39)
[2018-10-27 06:52] VITALS: TEMP 97.8
[2018-10-27] MEDS: TAMSULOSIN HCL 0.4 MG CAP PO SCH (08:58)
[2018-10-27] MEDS ORDERED: predniSONE 20 MG TABLET (UD) PO SCH (09:00)
--- NOTE | 2018-10-27 09:06 | DS ---
Physical Examination Vital Signs: Vital Signs Temperature 97.8 F 10/27/18 06:50 Pulse Rate 62 10/27/18 06:50 Respiratory Rate 15 10/27/18 06:50 Blood Pressure 115/64 10/27/18 06:50 O2 Sat by Pulse Oximetry (%) 100 10/26/18 21:00 Cardiovascular: Yes: S1, S2 Respiratory: Yes: Regular, CTA Bilaterally Gastrointestinal: Yes: Normal Bowel Sounds, Soft Labs: CBC, BMP 10/26/18 05:55 Discharge Summary Reason For Visit: CHRONIC KIDNEY DISEASE PRE SYNCOPE ACUTE GOUT Current Active Problems CKD (chronic kidney disease) (Acute) Gout (Acute) Left ankle pain (Acute) Near syncope (Acute) Hospital Course: - Problems (1) CKD (chronic kidney disease) Assessment/Plan: irasema on ckd--Improved renal eval hold lasix will need close outpatient follow up Code(s): N18.9 - CHRONIC KIDNEY DISEASE, UNSPECIFIED Qualifiers: Chronic kidney disease stage: stage 4 (severe) Qualified Code(s): N18.4 - Chronic kidney disease, stage 4 (severe) (2) Gout Assessment/Plan: s/p colchicine on prednisone allopurinol as outpatient symptoms improved Code(s): M10.9 - GOUT, UNSPECIFIED (3) Near syncope Assessment/Plan: ct head no acute pathology stress test on 05/10 normal left ventricle contraction LV ejection fraction is 75 % echo done earlier this year shows left ventricle hypertrophy CE 2 sets negative Code(s): R55 - SYNCOPE AND COLLAPSE (4) Chest pain Assessment/Plan: ce 2 sets negative imdur ,hydralazine and cardizem and lopressor CARDIO NOTED Code(s): R07.9 - CHEST PAIN, UNSPECIFIED (5) Glaucoma Assessment/Plan: eye drops Code(s): H40.9 - UNSPECIFIED GLAUCOMA dc home with outpatient follow up Condition: Improved - Instructions Diet, Activity, Other Instructions: follow up with dr shea to discuss prednisone and start allopurinol for gout follow up with renal for blood test in one week Referrals: Poncho Shea MD, MD [Primary Care Provider] - 1 Week Disposition: HOME - Home Medications Comprehensive Discharge Medication List: Ambulatory Orders Aspirin [ASA -] 81 mg PO DAILY 01/10/14 Bimatoprost [Lumigan] 1 drop IO BID 01/10/14 Brimonidine Tartrate [Alphagan 0.15% -] 1 drop OU BID 01/10/14 Cholecalciferol (Vitamin D3) [Vitamin D3] 2,000 unit PO DAILY 01/10/14 Dorzolamide HCl/Timolol Maleat [Cosopt Eye Drops] 5 ml OP BID 01/10/14 Tamsulosin HCl 0.4 mg PO DAILY 01/10/14 Vitamin A/Vitamin D2 [[place] Cod Liver Oil Sfgl] 1 each PO DAILY 01/10/14 Amlodipine Besylate [Norvasc -] 10 mg PO DAILY #30 tablet MDD 2 05/10/18 Atorvastatin Ca [Lipitor] 80 mg PO HS #30 tab 05/10/18 Clopidogrel Bisulfate [Plavix -] 75 mg PO DAILY #30 tablet MDD 1 05/10/18 Isosorbide Mononitrate [Imdur -] 30 mg PO BID #30 tab.sr.24h MDD 2 05/10/18 Metoprolol Tartrate [Lopressor -] 25 mg PO BID #30 tablet MDD 2 05/10/18 hydrALAZINE HCL [Apresoline -] 25 mg PO BID #30 tablet MDD 2 05/10/18 Diltiazem Cd [Cardizem Cd -] 120 mg PO DAILY #30 cap.cd.24h 10/27/18 Furosemide [Lasix -] 80 mg PO DAILY #30 tablet 10/27/18 predniSONE [Deltasone -] 30 mg PO DAILY #30 tablet 10/27/18
[2018-10-27 09:09] LABS: BLOOD UREA NITROGEN 89.6 mg/dL (7-18); CALCIUM 8.2 mg/dL (8.5-10.1); CREATININE 3.7 mg/dL (0.55-1.3)
[2018-10-27] MEDS: hydrALAZINE HCL 25 MG TABLET (FP) PO SCH (09:27)
[2018-10-27] MEDS: METOPROLOL TARTRATE 25 MG TABLET (FP) PO SCH (09:28)
[2018-10-27] MEDS: CLOPIDOGREL BISULFATE 75 MG TABLET (FP) PO SCH (09:28)
[2018-10-27] MEDS: ISOSORBIDE MONONITRATE 30 MG TAB.SR.24H (FP) PO SCH (09:29)
[2018-10-27] MEDS: CHOLECALCIFEROL (VIT D3) 1,000 UNIT (25 MCG) TABLET PO SCH (09:29)
[2018-10-27] MEDS: BRIMONIDINE TARTRATE 0.2% OPHTHALMIC 5 ML BOTTLE OU SCH (09:31)
--- NOTE | 2018-10-27 09:59 | PN ---
Progress Note (short form) - Note Progress Note: s: no dyspnea, palps, dizziness, no chest pain Current Medications Acetaminophen (Tylenol -) 650 mg PO Q6H PRN PRN Reason: PAIN OR FEVER Atorvastatin Calcium (Lipitor -) 80 mg PO HS [facility] Last Admin: 10/26/18 22:39 Dose: 80 mg Brimonidine Tartrate (Alphagan 0.2% -) 1 drop OU BID [facility] Last Admin: 10/27/18 09:31 Dose: 1 drop Cholecalciferol (Vitamin D3 -) 1,000 unit PO DAILY [facility] Last Admin: 10/27/18 09:29 Dose: 1,000 unit Clopidogrel Bisulfate (Plavix -) 75 mg PO DAILY [facility] Last Admin: 10/27/18 09:28 Dose: 75 mg Diltiazem HCl (Cardizem Cd -) 120 mg PO DAILY [facility] Last Admin: 10/27/18 09:27 Dose: 120 mg Hydralazine HCl (Apresoline -) 25 mg PO BID [facility] Last Admin: 10/27/18 09:27 Dose: 25 mg Isosorbide Mononitrate (Imdur -) 30 mg PO BID [facility] Last Admin: 10/27/18 09:29 Dose: 30 mg Latanoprost (Xalatan 0.005% Eye Drops -) 1 drop OU [facility] Last Admin: 10/26/18 22:39 Dose: 1 drop Metoprolol Tartrate (Lopressor -) 25 mg PO BID [facility] Last Admin: 10/27/18 09:28 Dose: 25 mg Prednisone (Deltasone -) 30 mg PO DAILY [facility] Last Admin: 10/27/18 09:26 Dose: 30 mg Tamsulosin HCl (Flomax -) 0.4 mg PO DAILY@0830 [facility] Last Admin: 10/27/18 08:58 Dose: 0.4 mg Vital Signs Period Temp Pulse Resp BP Sys/Stinson Pulse Ox Last 24 Hr 97.8 F-98.2 F 54-80 12-16 115-137/51-67 100-100 Constitutional: Yes: No Distress, Calm Eyes: Yes: Conjunctiva Clear, EOM Intact HENT: Yes: Atraumatic, Normocephalic Neck: Yes: Supple, Trachea Midline Respiratory: Yes: Regular, CTA Bilaterally Gastrointestinal: Yes: Normal Bowel Sounds, Soft Cardiovascular: Yes: Regular Rate and Rhythm JVD: No Carotid Bruit: No PMI: Non-Displaced Heart Sounds: Yes: S1, S2 Musculoskeletal: No: Back Pain Extremities: No: Cold Edema: No Peripheral Pulses WNL: Yes Peripheral Pulses: 2+ Left Doralis Pedis, 2+ Right Dorsalis Pedis Integumentary: No: Jaundice Neurological: Yes: Alert, Oriented Psychiatric: No: Agitated Assessment/Plan EKG: sinus, old inf infarct, RBBB, no ischemic changes CXR: no acute process mibi 04/2018: no ischemia, nl lvef echo 04/2018: mild lvh, nl lvef, nl rv, mild mr/tr/ar tele: sinus 83M h/o HTN, CAD s/p stents 2006 and 2011, HLD p/w fall, chest pain s/p fall, gout - no dizziness, syncope - monitoring on tele - no events - history c/w mechanical fall in setting of foot pain from gout - manage per primary chest pain, h/o CAD - trop neg x 2, EKG no ischemic changes - unlikely ACS - mibi unremarkable 04/2018 - history more consistent with MSK - cont aspirin, statin, plavix, imdur, bb - dc tele HTN -cont home meds HLD - not controlled - unclear if taking statin at home - continue atorvastatin 80 mg daily LILIYA on CKD - nephrology following, holding lasix
[2018-10-27 12:22] VITALS: BP 110/65
[2018-10-27 12:23] VITALS: PULSE 60
--- NOTE | 2018-10-27 13:39 | EKG ---
Test Reason : Blood Pressure : / mmHG Vent. Rate : 068 BPM Atrial Rate : 068 BPM P-R Int : 168 ms QRS Dur : 164 ms QT Int : 440 ms P-R-T Axes : 077 016 021 degrees QTc Int : 467 ms NORMAL SINUS RHYTHM RIGHT BUNDLE BRANCH BLOCK POSSIBLE INFERIOR INFARCT (CITED ON OR BEFORE 23-SEP-2011) ABNORMAL ECG WHEN COMPARED WITH ECG OF 07-MAY-2018 09:25, T WAVE INVERSION LESS EVIDENT IN INFERIOR LEADS Confirmed by NAWAF BASURTO MD ([id number]) on 10/27/2018 1:39:48 PM Referred By: Confirmed By:NAWAF BASURTO MD
--- NOTE | 2018-10-27 14:07 | PN ---
Progress Note (short form) - Note Progress Note: Renal follow up for LILIYA on CKD Pt seen and examined at the bedside awake and alert feels better no sob, cp, abd pain, N/V/D making urine Vital Signs Temperature 97.8 F 10/27/18 09:22 Pulse Rate 60 10/27/18 12:22 Respiratory Rate 13 10/27/18 12:22 Blood Pressure 110/65 10/27/18 12:22 O2 Sat by Pulse Oximetry (%) 100 10/27/18 09:24 Intake & Output 10/24/18 10/25/18 10/26/18 10/27/18 23:59 23:59 23:59 23:59 Intake Total 240 440 690 Output Total 200 475 Balance 240 240 215 Weight 72.575 kg 72.529 kg NAD RRR CTA soft NT/ND no LE edema CBC, BMP 10/26/18 05:55 10/27/18 07:56 Current Medications Acetaminophen (Tylenol -) 650 mg PO Q6H PRN PRN Reason: PAIN OR FEVER Atorvastatin Calcium (Lipitor -) 80 mg PO HS [facility] Last Admin: 10/26/18 22:39 Dose: 80 mg Brimonidine Tartrate (Alphagan 0.2% -) 1 drop OU BID [facility] Last Admin: 10/27/18 09:31 Dose: 1 drop Cholecalciferol (Vitamin D3 -) 1,000 unit PO DAILY [facility] Last Admin: 10/27/18 09:29 Dose: 1,000 unit Clopidogrel Bisulfate (Plavix -) 75 mg PO DAILY [facility] Last Admin: 10/27/18 09:28 Dose: 75 mg Diltiazem HCl (Cardizem Cd -) 120 mg PO DAILY [facility] Last Admin: 10/27/18 09:27 Dose: 120 mg Hydralazine HCl (Apresoline -) 25 mg PO BID [facility] Last Admin: 10/27/18 09:27 Dose: 25 mg Isosorbide Mononitrate (Imdur -) 30 mg PO BID [facility] Last Admin: 10/27/18 09:29 Dose: 30 mg Latanoprost (Xalatan 0.005% Eye Drops -) 1 drop OU HS [facility] Last Admin: 10/26/18 22:39 Dose: 1 drop Metoprolol Tartrate (Lopressor -) 25 mg PO BID [facility] Last Admin: 10/27/18 09:28 Dose: 25 mg Prednisone (Deltasone -) 30 mg PO DAILY [facility] Last Admin: 10/27/18 09:26 Dose: 30 mg Tamsulosin HCl (Flomax -) 0.4 mg PO DAILY@0830 [facility] Last Admin: 10/27/18 08:58 Dose: 0.4 mg 83 year old gentleman with history of CKD stage 4, CAD s/p PCI and stents, hypertension, BPH who presented with complaints of left ankle pain and admitted for acute gout and LILIYA on CKD. #Acute Kidney Injury #CKD stage 4 #Acute Gout #Chest pain r/o ACS #BPH #Anemia Cr was 4.4 on 09/2015 Renal function improved s/p hydration can d/c fluids but continue to hold diuretics Avoid NSAIDs for pain control Continue prednisone for acute Gout uric acid levels are high, will need allopurionol or uloric but would wait until acute flare is over prior to staring Cardiology follow up continue flomax Thank you Carlos Avery DO
[2018-10-27 14:12] VITALS: BMI 24.9
== END 2018-10-27 16:28 | disposition home or self-care (01) | DRG 554 ==
LOC: JERFT 14:51 → JER 14:51 → JERBED 21:13 → J2W 10-25 13:05
PROVIDERS: ADMIT Family Medicine; ATTEND Family Medicine
DX: M10.9 Gout, unspecified (principal); N17.9 Acute kidney failure, unspecified; N18.4 Chronic kidney disease, stage 4 (severe); R55 Syncope and collapse; M25.572 Pain in left ankle and joints of left foot; I25.10 Atherosclerotic heart disease of native coronary artery without angina pectoris; I12.9 Hypertensive chronic kidney disease with stage 1 through stage 4 chronic kidney disease, or unspecified chronic kidney disease; E78.5 Hyperlipidemia, unspecified; R07.9 Chest pain, unspecified; H40.9 Unspecified glaucoma; N28.9 Disorder of kidney and ureter, unspecified; N40.0 Benign prostatic hyperplasia without lower urinary tract symptoms; D64.9 Anemia, unspecified; Z98.61 Coronary angioplasty status
CPT/HCPCS: 36415; 70450-TC; 71046-TC-FY; 73610-TC-LT-FY; 73630-TC-LT; 80048; 80053; 80061; 81003; 82565; 82570; 83721; 83735; 84100; 84155; 84156; 84165; 84300; 84443; 84484; 84540; 84550; 85025; 85610; 85651; 86140; 87040; 93005; 93010; 99284-25; J7030

== ENCOUNTER 2018-11-15 10:56 | Emergency (ER) | payer OTHER ==
[2018-11-15 11:05] VITALS: BP 107/41; PULSE 75; TEMP 97.7; BMI 25.0
--- NOTE | 2018-11-15 11:47 | PDOC ---
History of Present Illness - General Chief Complaint: Edema Stated Complaint: LT. HAND PAIN Time Seen by Provider: 11/15/18 11:27 History Source: Patient Exam Limitations: No Limitations - History of Present Illness Initial Comments: 11/15/18 11:27 Came for evaluation of left hand swelling and pain. States woke up this morning with swelling to his metacarpals and difficulty making a fist and has had no trauma, no fall, no changes in exercise. Timing/Duration: unsure, 24 hours Severity: mild, moderate Past History - Travel Traveled outside of the country in the last 30 days: No Close contact w/someone who was outside of country & ill: No - Past Medical History Allergies/Adverse Reactions: Allergies Allergy/AdvReac Type Severity Reaction Status Date / Time No Known Drug Allergies Allergy Verified 11/15/18 11:03 Home Medications: Ambulatory Orders Aspirin [ASA -] 81 mg PO DAILY 01/10/14 Bimatoprost [Lumigan] 1 drop IO BID 01/10/14 Brimonidine Tartrate [Alphagan 0.15% -] 1 drop OU BID 01/10/14 Cholecalciferol (Vitamin D3) [Vitamin D3] 2,000 unit PO DAILY 01/10/14 Dorzolamide HCl/Timolol Maleat [Cosopt Eye Drops] 5 ml OP BID 01/10/14 Tamsulosin HCl 0.4 mg PO DAILY 01/10/14 Vitamin A/Vitamin D2 [[place] Cod Liver Oil Sfgl] 1 each PO DAILY 01/10/14 Amlodipine Besylate [Norvasc -] 10 mg PO DAILY #30 tablet MDD 2 05/10/18 Atorvastatin Ca [Lipitor] 80 mg PO HS #30 tab 05/10/18 Clopidogrel Bisulfate [Plavix -] 75 mg PO DAILY #30 tablet MDD 1 05/10/18 Isosorbide Mononitrate [Imdur -] 30 mg PO BID #30 tab.sr.24h MDD 2 05/10/18 Metoprolol Tartrate [Lopressor -] 25 mg PO BID #30 tablet MDD 2 05/10/18 hydrALAZINE HCL [Apresoline -] 25 mg PO BID #30 tablet MDD 2 05/10/18 Diltiazem Cd [Cardizem Cd -] 120 mg PO DAILY #30 cap.cd.24h 10/27/18 Furosemide [Lasix -] 80 mg PO DAILY #30 tablet 10/27/18 predniSONE [Deltasone -] 30 mg PO DAILY #30 tablet 10/27/18 Cardiac Disorders: Yes (stents few years ago) COPD: No Diabetes: Yes Disorders: Yes (bph) HTN: Yes Hypercholesterolemia: Yes Other medical history: ARTHRITIS - Surgical History Cardiac Surgery: Yes (CATH) - Immunization History Td Vaccination: No TDAP Vaccination: No Immunization Up to Date: No (unsure) - Suicide/Smoking/Psychosocial Hx Smoking Status: No Smoking History: Never smoked Have you smoked in the past 12 months: No Number of Cigarettes Smoked Daily: 0 Information on smoking cessation initiated: No Hx Alcohol Use: No Drug/Substance Use Hx: No Substance Use Type: None Hx Substance Use Treatment: No Review of Systems - Review of Systems Able to Perform ROS?: Yes Is the patient limited Bol[place]ian proficient: Yes Constitutional: Yes: Symptoms Reported, See HPI. No: Chills, Fever, Malaise HEENTM: Yes: See HPI, Throat Swelling. No: Symptoms Reported, Mouth Swelling Respiratory: No: Symptoms reported, See HPI Musculoskeletal: Yes: Symptoms Reported Integumentary: Yes: Symptoms Reported, See HPI, Erythema, Lesions Neurological: No: Symptoms reported All Other Systems: Reviewed and Negative *Physical Exam - Vital Signs Last Vital Signs Temp Pulse Resp BP Pulse Ox 97.7 F 75 17 107/41 L 98 11/15/18 11:00 11/15/18 11:00 11/15/18 11:00 11/15/18 11:00 11/15/18 11:00 - Physical Exam General Appearance: Yes: Nourished, Appropriately Dressed, Apparent Distress HEENT: positive: PATTI, Normal ENT Inspection, Normal Voice, TMs Normal, Pharynx Normal Neck: positive: Supple. negative: Tender Gastrointestinal/Abdominal: positive: Tender, Soft Extremity: positive: Normal Inspection, Tender. negative: Normal Range of Motion (Limited range of motion secondary to swelling and tenderness to the MCPs of left hand second through 5. Sensation intact to distal digits) Integumentary: positive: Normal Color, Dry, Warm, Other (hand swollen on the dorsum with erythema and tenderness midpoint. 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 Dressed with bacitracin ointment and Band-Aid, patient tolerated well *DC/Admit/Observation/Transfer Diagnosis at time of Disposition: Bee sting reaction Qualifiers: Encounter type: initial encounter Injury intent: undetermined intent Qualified Code(s): T63.444A - Toxic effect of venom of bees, undetermined, initial encounter - Discharge Dispostion Disposition: HOME Condition at time of disposition: Stable Decision to Admit order: No - Referrals Referrals: Poncho Shea MD, MD [Primary Care Provider] - - Patient Instructions Printed Discharge Instructions: DI for Insect Bites and Stings Additional Instructions: Rest, keep cool and dry- avoid strenuous activity or hot /humid environments Keep hand Highly elevated to reduce swelling May use ice packs, cool cloth on itching lesions May use Benadryl at night for antihistamine, Zyrtec/ Dalila or Claritin for daytime antihistamine use to help with itching A use aloe vera gel to help assist with itching and inflammatory response May use [id number] hydrocortisone cream on all areas except face Try to identify cause for rash and avoid exposures And reapply bacitracin ointment and Band-Aid until wound is healed Be sure to use insect sprays/repellent, ones with DEET are the most effective when outdoors Followup with PMD in one week if no resolution Make appointment with funding coordinator for evaluation when possible Return to emergency department for worsening swelling, pus or purulent drainage from areas or any changes with swelling to lips, tongue, face or breathing problems from ALLERGIC reaction. - Post Discharge Activity
== END 2018-11-15 12:05 | disposition home or self-care (01) ==
LOC: JERFT 10:56
DX: T63.441A Toxic effect of venom of bees, accidental (unintentional), initial encounter (principal); M79.642 Pain in left hand; Y92.038 Other place in apartment as the place of occurrence of the external cause; I25.10 Atherosclerotic heart disease of native coronary artery without angina pectoris; I10 Essential (primary) hypertension; Z95.5 Presence of coronary angioplasty implant and graft; E11.9 Type 2 diabetes mellitus without complications; E78.00 Pure hypercholesterolemia, unspecified; N40.0 Benign prostatic hyperplasia without lower urinary tract symptoms; M12.9 Arthropathy, unspecified
CPT/HCPCS: 99282-25

== ENCOUNTER 2018-12-01 11:13 | Inpatient (IN) | payer OTHER ==
[2018-12-01 11:29] VITALS: BMI 27.4
[2018-12-01] MEDS ORDERED: ASPIRIN 81 MG CHEWABLE TABLETS PO ONE (11:50)
[2018-12-01 12:21] LABS: HEMATOCRIT 29.6 % (35.4-49); HEMOGLOBIN 9.7 GM/dL (11.7-16.9); MCH 31.4 pg (25.7-33.7); MCHC 32.7 g/dl (32.0-35.9); MEAN CELL VOLUME 95.9 fl (80-96); MEAN PLT VOLUME 7.6 fl (7.5-11.1); PLATELET COUNT 350 K/MM3 (134-434); RBC 3.09 M/mm3 (4.00-5.60); RDW 15.1 % (11.9-15.9)
[2018-12-01 12:33] LABS: INR 0.99 (0.83-1.09); PROTHROMBIN TIME (PATIENT) 11.7 SEC (9.7-13.0)
[2018-12-01] MEDS ORDERED: SODIUM CHLORIDE 1,000 ML IV STA (12:34)
[2018-12-01 12:58] LABS: ALBUMIN 3.1 g/dl (3.4-5.0); BILIRUBIN,TOTAL 0.3 mg/dL (0.2-1); BLOOD UREA NITROGEN 51.8 mg/dL (7-18); CALCIUM 8.9 mg/dL (8.5-10.1); CREATININE 3.7 mg/dL (0.55-1.3); MAGNESIUM 1.9 mg/dL (1.8-2.4); N-TERMINAL BNP 1085.2 pg/ml (5-450); TOT PROT 6.7 g/dl (6.4-8.2)
[2018-12-01] MEDS ORDERED: DEXTROSE 50%-WATER 25 GM/50 ML DISP.SYRIN ONE ×4 (13:00→20:45)
[2018-12-01] MEDS ORDERED: DEXTROSE 50%-WATER - 25 GM/50 ML VIAL IVPUSH ONE ×3 (13:01→17:53)
[2018-12-01 14:31] LABS: ANISOCYTOSIS 1+; MACROCYTOSIS 1+; OVALOCYTE 1+; PLATELET ESTIMATE NORMAL
--- NOTE | 2018-12-01 14:40 | EKG ---
Test Reason : Blood Pressure : / mmHG Vent. Rate : 099 BPM Atrial Rate : 100 BPM P-R Int : 150 ms QRS Dur : 148 ms QT Int : 382 ms P-R-T Axes : 074 015 020 degrees QTc Int : 490 ms NORMAL SINUS RHYTHM RIGHT BUNDLE BRANCH BLOCK INFERIOR INFARCT (CITED ON OR BEFORE 23-SEP-2011) ABNORMAL ECG WHEN COMPARED WITH ECG OF 24-OCT-2018 16:22, NO SIGNIFICANT CHANGE WAS FOUND Confirmed by RELL KIM MD ([id number]) on 12/01/2018 2:39:42 PM Referred By: Confirmed By:RELL KIM MD
--- NOTE | 2018-12-01 15:06 | PDOC ---
Documentation entered by Trey Quesada SCRIBE, acting as scribe for Shantal Coombs MD. Shantal Coombs MD: This documentation has been prepared by the Dipak larson Daniel, SCRIBE, under my direction and personally reviewed by me in its entirety. I confirm that the documentation accurately reflects all work, treatment, procedures, and medical decision making performed by me. History of Present Illness - General Chief Complaint: Chest Pain Stated Complaint: CHEST PAIN History Source: Patient Exam Limitations: No Limitations - History of Present Illness Initial Comments: 12/01/18 12:40 The patient is an 83 year old male with a past medical history of HTN, diabetes? ?, HLD, and CAD s/p stents here today for evaluation of chest pain and dizziness. The patient reports that he woke up this morning around 4 AM and felt dizzy and couldnt walk. He also notes intermittent, 5/10, mid sternal chest pain, blurry vision, and headache. Patient reports feeling dry and denies any change in speech but the companions at bedside state that he is usually more fluent and does not have any trouble finding his words. Patient did not take his medications today. Patient denies fever, chills. Denies chest pain, shortness of breath. Denies nausea, vomiting, diarrhea, abdominal pain. Allergies: NKDA PCP: Poncho Shea Past History - Past Medical History Allergies/Adverse Reactions: Allergies Allergy/AdvReac Type Severity Reaction Status Date / Time No Known Drug Allergies Allergy Verified 11/15/18 11:03 Home Medications: Ambulatory Orders Aspirin [ASA -] 81 mg PO DAILY 01/10/14 Bimatoprost [Lumigan] 1 drop IO BID 01/10/14 Brimonidine Tartrate [Alphagan 0.15% -] 1 drop OU BID 01/10/14 Cholecalciferol (Vitamin D3) [Vitamin D3] 2,000 unit PO DAILY 01/10/14 Dorzolamide HCl/Timolol Maleat [Cosopt Eye Drops] 5 ml OP BID 01/10/14 Tamsulosin HCl 0.4 mg PO DAILY 01/10/14 Vitamin A/Vitamin D2 [[place] Cod Liver Oil Sfgl] 1 each PO DAILY 01/10/14 Amlodipine Besylate [Norvasc -] 10 mg PO DAILY #30 tablet MDD 2 05/10/18 Clopidogrel Bisulfate [Plavix -] 75 mg PO DAILY #30 tablet MDD 1 05/10/18 Isosorbide Mononitrate [Imdur -] 30 mg PO BID #30 tab.sr.24h MDD 2 05/10/18 Metoprolol Tartrate [Lopressor -] 25 mg PO BID #30 tablet MDD 2 05/10/18 hydrALAZINE HCL [Apresoline -] 25 mg PO BID #30 tablet MDD 2 05/10/18 Diltiazem Cd [Cardizem Cd -] 120 mg PO DAILY #30 cap.cd.24h 10/27/18 Furosemide [Lasix -] 80 mg PO DAILY #30 tablet 10/27/18 Ferrous Sulfate, Dried [Iron] 159 mg PO DAILY 12/01/18 Cardiac Disorders: Yes (stents few years ago) COPD: No Diabetes: Yes Disorders: Yes (bph) HTN: Yes Hypercholesterolemia: Yes - Surgical History Cardiac Surgery: Yes (CATH) - Immunization History Td Vaccination: No TDAP Vaccination: No Immunization Up to Date: No (unsure) - Suicide/Smoking/Psychosocial Hx Smoking Status: No Smoking History: Never smoked Have you smoked in the past 12 months: No Number of Cigarettes Smoked Daily: 0 Hx Alcohol Use: No Drug/Substance Use Hx: No Substance Use Type: None Hx Substance Use Treatment: No Review of Systems - Review of Systems Able to Perform ROS?: Yes Comments:: 12/01/18 12:40 GENERAL/CONSTITUTIONAL: No fever or chills. No weakness. HEAD, EYES, EARS, NOSE AND THROAT: +blurry vision. +headache. No ear pain or discharge. No sore throat. CARDIOVASCULAR: +chest pain. No shortness of breath. RESPIRATORY: No cough, wheezing, or hemoptysis. GASTROINTESTINAL: No nausea, vomiting, diarrhea or constipation. GENITOURINARY: No dysuria, frequency, or change in urination. MUSCULOSKELETAL: No joint or muscle swelling or pain. No neck or back pain. SKIN: No rash NEUROLOGIC: No vertigo, loss of consciousness, or change in strength/sensation. ENDOCRINE: No increased thirst. No abnormal weight change. HEMATOLOGIC/LYMPHATIC: No anemia, easy bleeding, or history of blood clots. ALLERGIC/IMMUNOLOGIC: No hives or skin allergy. *Physical Exam - Vital Signs Last Vital Signs Temp Pulse Resp BP Pulse Ox 97.5 F L 101 H 18 139/72 99 12/01/18 11:27 12/01/18 11:27 12/01/18 11:27 12/01/18 11:27 12/01/18 11:27 - Physical Exam Comments: 12/01/18 12:41 GENERAL: The patient is in no acute distress. Somnolent but arousable. HEAD: Normal with no signs of trauma. EYES: PERRLA, EOMI, sclera anicteric, conjunctiva clear. ENT: Ears normal, nares patent, oropharynx clear without exudates. Moist mucous membranes. NECK: Normal range of motion, supple without lymphadenopathy, JVD, or masses. LUNGS: Breath sounds equal, clear to auscultation bilaterally. No wheezes, and no crackles. HEART:Regular rate and rhythm, normal S1 and S2 without murmur, rub or gallop. ABDOMEN: Soft, nontender, normoactive bowel sounds. No guarding, no rebound. No masses palpable. EXTREMITIES: Normal range of motion, no edema. No clubbing or cyanosis. No erythema, or tenderness. NEUROLOGICAL: Cranial nerves II through XII grossly intact. Able to answer questions but has difficulty finding words. No focal neurological deficits. MUSCULOSKELETAL: Back non-tender to palpation, no CVA tenderness SKIN: Warm, Dry, normal turgor, no rashes or lesions noted. ED Treatment Course - LABORATORY CBC & Chemistry Diagram: 12/02/18 07:06 12/02/18 07:16 - ADDITIONAL ORDERS Additional order review: Laboratory Results 12/01/18 12/01/18 12/01/18 11:54 11:54 11:54 RBC 3.09 L MCV 95.9 MCH 31.4 MCHC 32.7 RDW 15.1 Neutrophils % No Result Required. Lymphocytes % No Result Required. Nucleated RBC % 0 PT with INR 11.70 INR 0.99 Sodium 141 Potassium 5.0 Chloride 109 H Carbon Dioxide 20 L Anion Gap 12 BUN 51.8 H Creatinine 3.7 H Est GFR (CKD-EPI)AfAm 16.40 Est GFR (CKD-EPI)NonAf 14.15 Random Glucose 27 L* Calcium 8.9 Magnesium 1.9 Total Bilirubin 0.3 AST 20 ALT 13 Alkaline Phosphatase 87 Creatine Kinase 125 Troponin I 0.02 B-Natriuretic Peptide 1085.2 H Total Protein 6.7 Albumin 3.1 L 12/01/18 11:54 RBC 3.09 L MCV 95.9 MCHC 32.7 RDW 15.1 Neutrophils % No Result Required. Lymphocytes % No Result Required. - RADIOLOGY Radiology Studies Ordered: Category Date Time Status HEAD CT WITHOUT CONTRAST [CT] Stat CT Scan 12/01/18 12:35 Ordered CHEST X-RAY PORTABLE* [RAD] Stat Radiology 12/01/18 11:50 Taken - Medications Given in the ED: ED Medications Discontinued Medications Generic Name Dose Route Start Last Admin Trade Name Freq PRN Reason Stop Dose Admin Aspirin 162 mg 12/01/18 11:50 12/01/18 12:24 Asa - PO 12/01/18 11:51 Not Given ONCE ONE Medical Decision Making - Critical Care Time Total Critical Care Time (minutes): 60 Critical Care Statement: The care of this patient involved high complexity decision making to prevent further life threatening deterioration of the patient 's condition and/or to evaluate & treat vital organ system(s) failure or risk of failure. - Medical Decision Making 12/01/18 13:02 83 yo M h/o HTN, CAD s/p PCI, stents 2006 and 2011, HLD p/w dizziness, weakness , and chest pain Pt reports waking up with all of his symptoms Denies vertigo Laboratory Tests 11/01/18 12/01/18 12/01/18 11:33 11:54 11:54 WBC 7.1 10.0 Hgb 10.2 L 9.7 L Hct 31.4 L 29.6 L Plt Count 269 INR Sodium 141 Potassium 5.0 Chloride 109 H Carbon Dioxide 20 L Anion Gap 12 BUN 51.8 H Creatinine 3.7 H Random Glucose 27 L* Creatine Kinase 125 Troponin I 0.02 B-Natriuretic Peptide 1085.2 H 12/01/18 11:54 WBC Hgb Hct Plt Count INR 0.99 Sodium Potassium Chloride Carbon Dioxide Anion Gap BUN Creatinine Random Glucose Creatine Kinase Troponin I B-Natriuretic Peptide Dextrose ordered Pt given juice CT performed 12/01/18 13:06 12/01/18 14:31 Fingersick re checked 35 12/01/18 17:52 Fingerstick rechecked 2 hours after eating Again 30 Will give dextrose 50 Will hang D5 12/01/18 18:45 Pt finger stick 68 He is eating now Clinical Impression: Profound hypoglycemia, initial presentation *DC/Admit/Observation/Transfer Diagnosis at time of Disposition: Hypoglycemia Chest pain Qualifiers: Chest pain type: unspecified Qualified Code(s): R07.9 - Chest pain, unspecified - Discharge Dispostion Condition at time of disposition: Stable Decision to Admit order: Yes - Referrals - Patient Instructions - Post Discharge Activity
--- NOTE | 2018-12-01 17:30 | HP ---
Admitting History and Physical - Primary Care Physician PCP: Poncho Shea MD - Admission Chief Complaint: Chest pain and dizziness History of Present Illness: Patient is an 83 y/o male with past medical history of HTN, HLD, CAD s/p stent placement. Patient complain of intermittent mid chest pain and dizziness which began at 3am. Chest pain is non-radiating and not accompanied with SOB. He layed back down and states the chest pain and dizziness subsided. He would experience the chest pain and dizziness when he would stand up. While in ER noted with BS 27mg/dL, received dextrose 25g IVP and BS improved, patient denies hx of diabetes. History Source: Patient Limitations to Obtaining History: No Limitations - Past Medical History Cardiovascular: Yes: CAD, HTN, Hyperlipdemia - Past Surgical History Past Surgical History: Yes: Stent - Smoking History Smoking history: Never smoked Have you smoked in the past 12 months: No Aproximately how many cigarettes per day: 0 - Alcohol/Substance Use Hx Alcohol Use: No - Social History Usual Living Arrangement: Yes: With Spouse ADL: Independent History of Recent Travel: No Home Medications - Allergies Allergies/Adverse Reactions: Allergies Allergy/AdvReac Type Severity Reaction Status Date / Time No Known Drug Allergies Allergy Verified 11/15/18 11:03 - Home Medications Home Medications: Ambulatory Orders Aspirin [ASA -] 81 mg PO DAILY 01/10/14 Bimatoprost [Lumigan] 1 drop IO BID 01/10/14 Brimonidine Tartrate [Alphagan 0.15% -] 1 drop OU BID 01/10/14 Cholecalciferol (Vitamin D3) [Vitamin D3] 2,000 unit PO DAILY 01/10/14 Dorzolamide HCl/Timolol Maleat [Cosopt Eye Drops] 5 ml OP BID 01/10/14 Tamsulosin HCl 0.4 mg PO DAILY 01/10/14 Vitamin A/Vitamin D2 [[place] Cod Liver Oil Sfgl] 1 each PO DAILY 01/10/14 Amlodipine Besylate [Norvasc -] 10 mg PO DAILY #30 tablet MDD 2 05/10/18 Clopidogrel Bisulfate [Plavix -] 75 mg PO DAILY #30 tablet MDD 1 05/10/18 Isosorbide Mononitrate [Imdur -] 30 mg PO BID #30 tab.sr.24h MDD 2 05/10/18 Metoprolol Tartrate [Lopressor -] 25 mg PO BID #30 tablet MDD 2 05/10/18 hydrALAZINE HCL [Apresoline -] 25 mg PO BID #30 tablet MDD 2 05/10/18 Diltiazem Cd [Cardizem Cd -] 120 mg PO DAILY #30 cap.cd.24h 10/27/18 Furosemide [Lasix -] 80 mg PO DAILY #30 tablet 10/27/18 Ferrous Sulfate, Dried [Iron] 159 mg PO DAILY 12/01/18 Review of Systems - Review of Systems Constitutional: reports: No Symptoms Eyes: reports: No Symptoms HENT: reports: No Symptoms Neck: reports: No Symptoms Cardiovascular: reports: No Symptoms Respiratory: reports: No Symptoms Gastrointestinal: reports: Diarrhea Genitourinary: reports: No Symptoms Breasts: reports: No Symptoms Reported Musculoskeletal: reports: No Symptoms Integumentary: reports: No Symptoms Neurological: reports: Dizziness Endocrine: reports: Increased Hunger, Increased Thirst Hematology/Lymphatic: reports: No Symptoms Psychiatric: reports: No Symptoms Physical Examination Vital Signs: Vital Signs Temperature 97.5 F L 12/01/18 11:27 Pulse Rate 93 H 12/01/18 15:41 Respiratory Rate 18 12/01/18 15:41 Blood Pressure 145/86 12/01/18 15:41 O2 Sat by Pulse Oximetry (%) 95 12/01/18 15:41 Constitutional: Yes: No Distress, Calm Eyes: Yes: Conjunctiva Clear HENT: Yes: Atraumatic Neck: Yes: Supple Cardiovascular: Yes: Regular Rate and Rhythm Respiratory: Yes: Regular, CTA Bilaterally Gastrointestinal: Yes: Normal Bowel Sounds, Soft Musculoskeletal: Yes: Muscle Weakness Extremities: Yes: WNL Edema: No Neurological: Yes: Alert, Oriented Psychiatric: Yes: Alert, Oriented Labs: CBC, BMP 12/01/18 11:54 12/01/18 11:54 Imaging - Results Chest X-ray: Report Reviewed Cat Scan: Report Reviewed Problem List - Problems (1) Dizziness Assessment/Plan: -Carotid US -Cardiology consult -fall precautions -Head CT scan shows moderate atrophy and chronic microvascular ischemic disease changes without gross evidence of acute intracranial pathology Code(s): R42 - DIZZINESS AND GIDDINESS (2) Chest pain Assessment/Plan: -Cardiology consult -tele monitoring -troponin neg, will repeat and monitor for if uptrend occur Code(s): R07.9 - CHEST PAIN, UNSPECIFIED Qualifiers: Chest pain type: unspecified Qualified Code(s): R07.9 - Chest pain, unspecified (3) Hypoglycemia Assessment/Plan: -Endocrinology consult -BGM q2h -Dextrose 25g amp PRN for BS <60mg/dL Code(s): E16.2 - HYPOGLYCEMIA, UNSPECIFIED (4) CKD (chronic kidney disease) Assessment/Plan: -BUN/Cr 51.8/3.7 -monitor renal function -Renal consult Code(s): N18.9 - CHRONIC KIDNEY DISEASE, UNSPECIFIED Qualifiers: Chronic kidney disease stage: stage 4 (severe) Qualified Code(s): N18.4 - Chronic kidney disease, stage 4 (severe) (5) HTN (hypertension) Assessment/Plan: -Norvasc, Hydralazine, Isosorbide -low Na diet Code(s): I10 - ESSENTIAL (PRIMARY) HYPERTENSION Assessment/Plan see problem list dvt ppx
[2018-12-01] MEDS ORDERED: DEXTROSE 5%-NORMAL SALINE 1,000 ML IV SCH (18:15)
[2018-12-01] MEDS ORDERED: DEXTROSE 50%-WATER - 25 GM/50 ML VIAL IVPUSH PRN (19:13)
[2018-12-01] MEDS ORDERED: DEXTROSE 50%-WATER 25 GM/50 ML DISP.SYRIN IVPUSH ONE (19:30)
[2018-12-01] MEDS ORDERED: PATIENT'S OWN MEDICATION (NON-FORMULARY) (Bimatoprost [Lumigan] 1 DROP) IO SCH (22:00)
[2018-12-01] MEDS ORDERED: PATIENT'S OWN MEDICATION (NON-FORMULARY) (Dorzolamide Hcl/Timolol Maleat [Cosopt Eye Drops OP SCH (22:00)
[2018-12-01] MEDS ORDERED: GLUCAGON 1 MG KIT IVPUSH ONE (22:30)
[2018-12-01] MEDS ORDERED: DEXTROSE 10%-WATER - 1,000 ML IV SCH (22:45)
[2018-12-02] MEDS: METOPROLOL TARTRATE 25 MG TABLET (FP) PO SCH ×3 (00:42→22:05)
[2018-12-02] MEDS: ISOSORBIDE MONONITRATE 30 MG TAB.SR.24H (FP) PO SCH ×3 (00:42→22:04)
[2018-12-02] MEDS: hydrALAZINE HCL 25 MG TABLET (FP) PO SCH ×3 (00:42→22:04)
[2018-12-02] MEDS: BRIMONIDINE TARTRATE 0.15% OPHTHALMIC 5 ML BOTTLE OU SCH ×3 (00:47→22:05)
[2018-12-02] MEDS: HEPARIN NA (PORCINE) 5,000 UNITS/ML 1ML VIAL SQ SCH ×3 (00:47→22:04)
--- NOTE | 2018-12-02 02:47 | HOSP ---
Subjective - Review of Symptoms Events since last encounter: 83 y/o male with past medical history of HTN, HLD, CAD s/p stent placement. Patient arrived to ED with complain of chest pain and dizziness when standing to sitting, While in ER noted with BS 27mg/dL, received dextrose 25g IVP and BS improved, patient denies hx of diabetes. Patient arrived to unit with BGM of 14, very diaphoretic,labored breathing respond to verbal, tactile stimuli, ordered stat glucagon 1 mg IVpush, started on D10 1 L, ordered state plasm glucose, random glucose, hga1c. RN instructed to recheck FSBS q 1 hours and then transition to q3 hours. At 23:11 bgm 54, random glucose 31L POC as follow 66--> 54--> 82 At: 2:39 am patient is more awake, and responsive, no tremors spoke to patient states " i am feeling better" - BGM: 33 - will give another glucagon 1 mg IV push - D10 infusing at 75 -- will increase to 100 ml/hr - monitor FSBS closely General: Yes: Fatigue, Malaise HEENT: No: Head Aches, Visual Changes, Eye Pain, Ear Pain, Dysphasia, Sinus Congestion, Post Nasal Drip, Sore Throat, Other Pulmonary: No: Dyspnea, Cough, Pleuritic Chest Pain, Other Cardiovascular: Yes: Chest Pain, Other (dizziness ) Genitourinary: No: Dysuria, NOSYM, Frequency, Incontinence, Hematuria, Retention , Other Musculoskeletal: No: No Symptoms, Back Pain, Crepitus, Decreased ROM, Extremity Pain, Joint Pain, Joint Swelling, Muscle Pain, Muscle Cramps, Muscle Weakness, Other Neurological: Yes: Other (lethargy) Physical Examination Vital Signs: Vital Signs Temperature 97.6 F 12/02/18 02:07 Pulse Rate 93 H 12/02/18 02:07 Respiratory Rate 18 12/02/18 02:07 Blood Pressure 143/74 12/02/18 02:07 O2 Sat by Pulse Oximetry (%) 100 12/01/18 23:39 Constitutional: Yes: Calm, Diaphoresis Eyes: Yes: Conjunctiva Clear, EOM Intact HENT: Yes: Atraumatic, Normocephalic Neck: Yes: Supple, Trachea Midline Cardiovascular: Yes: Regular Rate and Rhythm Respiratory: Yes: Regular, CTA Bilaterally Gastrointestinal: Yes: Normal Bowel Sounds, Soft Integumentary: Yes: WNL Labs: Hospitalist Encounter Assessment: #Hypoglycemia No history of DM arrived to unit with BGM of 14, given glucagon 1 mg Iv push, D5 run 200 ml x1 D10 75 ml/hr At 23:11 bgm 54, random glucose 31L; POC as follow 66--> 54--> 82 At: 2:39 am patient is more awake, and responsive, no tremors spoke to patient states " i am feeling better" - BGM: 33 will give another glucagon 1 mg IV push - D10 increase infusing from 75 --> to 100 ml/hr - since awake give orange juice po - monitor FSBS closely
[2018-12-02] MEDS ORDERED: GLUCAGON 1 MG KIT IVPUSH ONE (02:56)
[2018-12-02] MEDS ORDERED: DEXTROSE 10%-WATER - 1,000 ML IV SCH (02:56)
[2018-12-02 08:17] LABS: BASO % 0.5 % (0-2.0); EOS % 2.1 % (0-4.5); HEMATOCRIT 25.3 % (35.4-49); HEMOGLOBIN 8.4 GM/dL (11.7-16.9); LYMPH % 10.2 % (8-40); MCH 31.6 pg (25.7-33.7); MCHC 33.3 g/dl (32.0-35.9); MEAN PLT VOLUME 7.2 fl (7.5-11.1); MONO % 12.9 % (3.8-10.2); NEUT % 74.3 % (42.8-82.8); PLATELET COUNT 289 K/MM3 (134-434); RBC 2.66 M/mm3 (4.00-5.60); RDW 15.3 % (11.9-15.9); WHITE BLOOD COUNT 4.9 K/mm3 (4.0-10.0)
[2018-12-02 08:25] LABS: ALBUMIN 2.8 g/dl (3.4-5.0); BILIRUBIN,TOTAL 0.2 mg/dL (0.2-1); BLOOD UREA NITROGEN 51.2 mg/dL (7-18); CALCIUM 8.3 mg/dL (8.5-10.1); CREATININE 3.1 mg/dL (0.55-1.3); MAGNESIUM 1.6 mg/dL (1.8-2.4); PHOSPHOROUS 2.6 mg/dL (2.5-4.9); POTASSIUM 5.1 mmol/L (3.5-5.1); TOT PROT 5.7 g/dl (6.4-8.2)
[2018-12-02] MEDS: TAMSULOSIN HCL 0.4 MG CAP PO SCH (08:54)
[2018-12-02] MEDS ORDERED: PT OWN MED DRAWER 7, Y5N ONE (09:31)
[2018-12-02] MEDS: CLOPIDOGREL BISULFATE 75 MG TABLET (FP) PO SCH (09:54)
[2018-12-02] MEDS: CHOLECALCIFEROL (VIT D3) 1,000 UNIT (25 MCG) TABLET PO SCH (09:54)
[2018-12-02] MEDS: FUROSEMIDE 40 MG TABLET (FP) PO SCH (09:55)
[2018-12-02] MEDS: ASPIRIN 81 MG CHEWABLE TABLETS PO SCH (09:55)
[2018-12-02] MEDS ORDERED: amLODIPine BESYLATE 10 MG TABLET (FP) PO SCH (10:00)
[2018-12-02] MEDS ORDERED: VITAMIN D2 PO SCH (10:00)
[2018-12-02] MEDS ORDERED: VITAMIN A PO SCH (10:00)
[2018-12-02] MEDS ORDERED: [UNRECOGNIZED DRUG - OTHER] PO SCH (10:00)
[2018-12-02] MEDS ORDERED: FERROUS SULFATE DRIED 159 MG PO SCH (10:00)
[2018-12-02] MEDS ORDERED: HYDROCORTISONE SOD SUCCINATE 100 MG/2 ML VIAL IVPUSH ONE (11:45)
--- NOTE | 2018-12-02 11:47 | CON.CARD ---
Cardiology Consult (text) - Consultation Consultation Note: Chief Complaint: dizzy, cp History of Present Illness: 83M h/o HTN, CAD s/p stents 2006 and 2011, HLD p/w dizzy, cp. Yesterday felt dizzy with some mild chest pressure. No sob palps loc pnd orthopnea le edema. In ER found to be severely hypoglycemic and after getting dextrose he felt better and cp resolved. Had repeat episodes overnight, now on d10 gtt and feeling well. Sees Dr. Johnson for cardio. - Past Medical History Cardio/Vascular: Yes: CAD, HTN, Hyperlipdemia - Alcohol/Substance Use Hx Alcohol Use: No - Smoking History Smoking history: Never smoked Aproximately how many cigarettes per day: 0 Home Medications - Allergies Allergies/Adverse Reactions: Current Medications Generic Name Dose Route Start Last Admin Trade Name Freq PRN Reason Stop Dose Admin Aspirin 81 mg 12/02/18 10:00 12/02/18 09:55 Asa - PO 81 mg DAILY JOSE DANIEL Administration Atorvastatin Calcium 40 mg 12/02/18 22:00 Lipitor - PO HS JOSE DANIEL Brimonidine Tartrate 1 drop 12/01/18 22:00 12/02/18 09:55 Alphagan 0.15% - OU 1 drop BID JOSE DANIEL Administration Cholecalciferol 2,000 unit 12/02/18 10:00 12/02/18 09:54 Vitamin D3 - PO 2,000 unit DAILY JOSE DANIEL Administration Clopidogrel Bisulfate 75 mg 12/02/18 10:00 12/02/18 09:54 Plavix - PO 75 mg DAILY JOSE DANIEL Administration Dextrose 25 gm 12/01/18 19:13 D50w (Vial) - IVPUSH Q4H PRN HYPOGLYCEMIA Diltiazem HCl 120 mg 12/02/18 10:00 12/02/18 09:54 Cardizem Cd - PO 120 mg DAILY JOSE DANIEL Administration Dorzolamide HCl 1 drop 12/02/18 10:00 Trusopt 2% OU BID JOSE DANIEL Furosemide 80 mg 12/02/18 10:00 12/02/18 09:55 Lasix - PO 80 mg DAILY JOSE DANIEL Administration Heparin Sodium (Porcine) 5,000 unit 12/01/18 22:00 12/02/18 00:47 Heparin - SQ 5,000 unit BID JOSE DANIEL Administration Hydralazine HCl 25 mg 12/01/18 22:00 12/02/18 09:55 Apresoline - PO 25 mg BID JOSE DANIEL Administration Dextrose/Sodium Chloride 1,000 mls @ 125 mls/hr 12/01/18 18:15 12/01/18 18:14 D5-Ns - IV 125 mls/hr ASDIR JOSE DANIEL Administration Dextrose 1,000 mls @ 100 mls/hr 12/02/18 02:56 12/02/18 03:08 D10w - IV 12/02/18 23:59 100 mls/hr ASDIR JOSE DANIEL Administration Isosorbide Mononitrate 30 mg 12/01/18 22:00 12/02/18 09:54 Imdur - PO 30 mg BID JOSE DANIEL Administration Latanoprost 1 drop 12/02/18 22:00 Xalatan 0.005% Eye Drops - OU [facility] Metoprolol Tartrate 25 mg 12/01/18 22:00 12/02/18 09:54 Lopressor - PO 25 mg BID [facility] Administration Non-Formulary Medication 1 each 12/02/18 10:00 Vitamin A/Vitamin D2 [Slovak Cod Liver Oil Sfgl] PO DAILY [facility] Tamsulosin HCl 0.4 mg 12/02/18 08:30 12/02/18 08:54 Flomax - PO 0.4 mg DAILY@0830 [facility] Administration Timolol Maleate 1 drop 12/02/18 10:00 Timoptic 0.5% OU BID [facility] Home Medications Medication Instructions Recorded Aspirin [ASA -] 81 mg PO DAILY 01/10/14 Bimatoprost [Lumigan] 1 drop IO BID 01/10/14 Brimonidine Tartrate [Alphagan 1 drop OU BID 01/10/14 0.15% -] Cholecalciferol (Vitamin D3) 2,000 unit PO DAILY 01/10/14 [Vitamin D3] Dorzolamide HCl/Timolol Maleat 5 ml OP BID 01/10/14 [Cosopt Eye Drops] Tamsulosin HCl 0.4 mg PO DAILY 01/10/14 Vitamin A/Vitamin D2 [Slovak 1 each PO DAILY 01/10/14 Cod Liver Oil Sfgl] Amlodipine Besylate [Norvasc -] 10 mg PO DAILY #30 tablet MDD 2 05/10/18 Clopidogrel Bisulfate [Plavix -] 75 mg PO DAILY #30 tablet MDD 1 05/10/18 Isosorbide Mononitrate [Imdur -] 30 mg PO BID #30 tab.sr.24h MDD 2 05/10/18 Metoprolol Tartrate [Lopressor -] 25 mg PO BID #30 tablet MDD 2 05/10/18 hydrALAZINE HCL [Apresoline -] 25 mg PO BID #30 tablet MDD 2 05/10/18 Diltiazem Cd [Cardizem Cd -] 120 mg PO DAILY #30 cap.cd.24h 10/27/18 Furosemide [Lasix -] 80 mg PO DAILY #30 tablet 10/27/18 Ferrous Sulfate, Dried [Iron] 159 mg PO DAILY 12/01/18 Family Disease History - Family Disease History Family History: Unremarkable Review of Systems - Review of Systems per hpi; all others nl Vital Signs Vital Signs Period Temp Pulse Resp BP Sys/Stinson Pulse Ox Last 24 Hr 97.6 F-99.3 F 85-119 18-18 125-167/72-93 95-100 Constitutional: Yes: No Distress, Calm Eyes: Yes: Conjunctiva Clear, EOM Intact HENT: Yes: Atraumatic, Normocephalic Neck: Yes: Supple, Trachea Midline Respiratory: Yes: Regular, CTA Bilaterally Gastrointestinal: Yes: Normal Bowel Sounds, Soft Cardiovascular: Yes: Regular Rate and Rhythm JVD: No Carotid Bruit: No PMI: Non-Displaced Heart Sounds: Yes: S1, S2 Musculoskeletal: No: Back Pain Extremities: No: Cold Edema: No Peripheral Pulses WNL: Yes Peripheral Pulses: 2+ Left Doralis Pedis, 2+ Right Dorsalis Pedis Integumentary: No: Jaundice Neurological: Yes: Alert, Oriented Psychiatric: No: Agitated Laboratory Last Values WBC 4.9 K/mm3 (4.0-10.0) 12/02/18 07:06 RBC 2.66 M/mm3 (4.00-5.60) L 12/02/18 07:06 Hgb 8.4 GM/dL (11.7-16.9) L 12/02/18 07:06 Hct 25.3 % (35.4-49) L 12/02/18 07:06 MCV 95.0 fl (80-96) 12/02/18 07:06 MCH 31.6 pg (25.7-33.7) 12/02/18 07:06 MCHC 33.3 g/dl (32.0-35.9) 12/02/18 07:06 RDW 15.3 % (11.9-15.9) 12/02/18 07:06 Plt Count 289 K/MM3 (134-434) 12/02/18 07:06 MPV 7.2 fl (7.5-11.1) L 12/02/18 07:06 Absolute Neuts (auto) 3.7 K/mm3 (1.5-8.0) 12/02/18 07:06 Neutrophils % 74.3 % (42.8-82.8) 12/02/18 07:06 Neutrophils % (Manual) 75.0 % (42.8-82.8) 12/01/18 11:54 Band Neutrophils % 0.0 % 12/01/18 11:54 Lymphocytes % 10.2 % (8-40) D 12/02/18 07:06 Lymphocytes % (Manual) 17.0 % (8-40) D 12/01/18 11:54 Monocytes % 12.9 % (3.8-10.2) H 12/02/18 07:06 Monocytes % (Manual) 7 % (3.8-10.2) D 12/01/18 11:54 Eosinophils % 2.1 % (0-4.5) D 12/02/18 07:06 Eosinophils % (Manual) 0.0 % (0-4.5) 12/01/18 11:54 Basophils % 0.5 % (0-2.0) D 12/02/18 07:06 Basophils % (Manual) 1.0 % (0-2.0) 12/01/18 11:54 Myelocytes % (Man) 0 % (0-2) 12/01/18 11:54 Promyelocytes % (Man) 0 % (0-2) 12/01/18 11:54 Blast Cells % (Manual) 0 % (0-0) 12/01/18 11:54 Nucleated RBC % 0 % (0-0) 12/02/18 07:06 Metamyelocytes 0 % (0-2) D 12/01/18 11:54 Hypochromia 0 12/01/18 11:54 Platelet Estimate Normal 12/01/18 11:54 Polychromasia 0 12/01/18 11:54 Poikilocytosis 1+ 12/01/18 11:54 Anisocytosis 1+ 12/01/18 11:54 Microcytosis 0 12/01/18 11:54 Macrocytosis 1+ 12/01/18 11:54 Ovalocytes 1+ 12/01/18 11:54 Jean Cells 1+ 12/01/18 11:54 PT with INR 11.70 SEC (9.7-13.0) 12/01/18 11:54 INR 0.99 (0.83-1.09) 12/01/18 11:54 Sodium 139 mmol/L (136-145) 12/02/18 07:16 Potassium 5.1 mmol/L (3.5-5.1) 12/02/18 07:16 Chloride 108 mmol/L (98-107) H 12/02/18 07:16 Carbon Dioxide 22 mmol/L (21-32) 12/02/18 07:16 Anion Gap 8 MMOL/L (8-16) 12/02/18 07:16 BUN 51.2 mg/dL (7-18) H 12/02/18 07:16 Creatinine 3.1 mg/dL (0.55-1.3) H 12/02/18 07:16 Est GFR (CKD-EPI)AfAm 20.31 12/02/18 07:16 Est GFR (CKD-EPI)NonAf 17.52 12/02/18 07:16 Plasma Glucose 70 mg/dl (74-106) L 12/02/18 10:00 POC Glucometer 65 UNITS (80-120) 12/02/18 10:57 Random Glucose 61 mg/dL (74-106) L 12/02/18 07:16 Hemoglobin A1c % 6.0 % (4.2-6.3) 12/02/18 07:15 Calcium 8.3 mg/dL (8.5-10.1) L 12/02/18 07:16 Phosphorus 2.6 mg/dL (2.5-4.9) 12/02/18 07:16 Magnesium 1.6 mg/dL (1.8-2.4) L 12/02/18 07:16 Total Bilirubin 0.2 mg/dL (0.2-1) 12/02/18 07:16 AST 13 U/L (15-37) L 12/02/18 07:16 ALT 10 U/L (13-61) L 12/02/18 07:16 Alkaline Phosphatase 81 U/L (45-117) 12/02/18 07:16 Creatine Kinase 147 U/L (26-308) 12/02/18 07:16 Troponin I 0.61 ng/ml (0.00-0.05) H* 12/02/18 07:16 B-Natriuretic Peptide 1085.2 pg/ml (5-450) H 12/01/18 11:54 Total Protein 5.7 g/dl (6.4-8.2) L 12/02/18 07:16 Albumin 2.8 g/dl (3.4-5.0) L 12/02/18 07:16 Triglycerides 26 mg/dL (0-150) 12/02/18 07:16 Cholesterol 170 mg/dL (50-200) 12/02/18 07:16 Total LDL Cholesterol 85 mg/dL (5-100) 12/02/18 07:16 HDL Cholesterol 73 mg/dL (40-60) H 12/02/18 07:16 TSH 0.70 uIU/ml (0.358-3.74) D 12/02/18 07:16 Assessment/Plan EKG: sinus, 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 ecg w/o ischemic changes. Seems to be demand ischemia 2/2 multiple episodes of hypoglycemia. Cont to trend ce's, monitor tele. Check echo - mibi unremarkable 04/2018 - cont aspirin, statin, plavix, imdur, bb - during prior admit 04/2018 with mild trop elevation as well and had unremarkable mibi then and pt was not interested in cath due to risk of WILLIE and need for HD. Will continue with med rx for now unless clinical picture seems more like acs. HTN -cont home meds HLD -cont statin CKD -cr stable
[2018-12-02] MEDS: TIMOLOL 0.5% OPHTHALMIC SOL 5 ML BOTTLE OU SCH ×2 (12:07→22:06)
[2018-12-02] MEDS: DORZOLAMIDE 2% HCL OPHTHALMIC SOLUTION 10 ML BOTTLE OU SCH ×2 (12:07→22:06)
--- NOTE | 2018-12-02 13:08 | PN ---
Progress Note, Physician Chief Complaint: patient seen and examined bgm noted on dextrose drip no chest pain - Current Medication List Current Medications: Active Medications Aspirin (Asa -) 81 mg PO DAILY [facility] Last Admin: 12/02/18 09:55 Dose: 81 mg Atorvastatin Calcium (Lipitor -) 40 mg PO HS [facility] Brimonidine Tartrate (Alphagan 0.15% -) 1 drop OU BID [facility] Last Admin: 12/02/18 09:55 Dose: 1 drop Cholecalciferol (Vitamin D3 -) 2,000 unit PO DAILY [facility] Last Admin: 12/02/18 09:54 Dose: 2,000 unit Clopidogrel Bisulfate (Plavix -) 75 mg PO DAILY [facility] Last Admin: 12/02/18 09:54 Dose: 75 mg Dextrose (D50w (Vial) -) 25 gm IVPUSH Q4H PRN PRN Reason: HYPOGLYCEMIA Diltiazem HCl (Cardizem Cd -) 120 mg PO DAILY [facility] Last Admin: 12/02/18 09:54 Dose: 120 mg Dorzolamide HCl (Trusopt 2%) 1 drop OU BID [facility] Furosemide (Lasix -) 80 mg PO DAILY [facility] Last Admin: 12/02/18 09:55 Dose: 80 mg Heparin Sodium (Porcine) (Heparin -) 5,000 unit SQ BID [facility] Last Admin: 12/02/18 00:47 Dose: 5,000 unit Hydralazine HCl (Apresoline -) 25 mg PO BID [facility] Last Admin: 12/02/18 09:55 Dose: 25 mg Dextrose/Sodium Chloride (D5-Ns -) 1,000 mls @ 125 mls/hr IV ASDIR [facility] Last Admin: 12/01/18 18:14 Dose: 125 mls/hr Dextrose (D10w -) 1,000 mls @ 100 mls/hr IV ASDIR [facility] Stop: 12/02/18 23:59 Last Admin: 12/02/18 03:08 Dose: 100 mls/hr Isosorbide Mononitrate (Imdur -) 30 mg PO BID [facility] Last Admin: 12/02/18 09:54 Dose: 30 mg Latanoprost (Xalatan 0.005% Eye Drops -) 1 drop OU [facility] Metoprolol Tartrate (Lopressor -) 25 mg PO BID [facility] Last Admin: 12/02/18 09:54 Dose: 25 mg Non-Formulary Medication (Vitamin A/Vitamin D2 [Cameroonian Cod Liver Oil Sfgl]) 1 each PO DAILY [facility] Tamsulosin HCl (Flomax -) 0.4 mg PO DAILY@0830 [facility] Last Admin: 12/02/18 08:54 Dose: 0.4 mg Timolol Maleate (Timoptic 0.5%) 1 drop OU BID [facility] - Objective Vital Signs: Vital Signs Temperature 99.3 F 12/02/18 10:00 Pulse Rate 85 12/02/18 10:00 Respiratory Rate 18 12/02/18 10:00 Blood Pressure 136/73 12/02/18 10:00 O2 Sat by Pulse Oximetry (%) 100 12/02/18 09:00 Constitutional: Yes: Calm Cardiovascular: Yes: Regular Rate and Rhythm, S1, S2 Respiratory: Yes: CTA Bilaterally Gastrointestinal: Yes: Normal Bowel Sounds, Soft Neurological: Yes: Alert, Oriented Labs: CBC, BMP 12/02/18 07:06 12/02/18 07:16 INR, PTT INR 0.99 (0.83-1.09) 12/01/18 11:54 Problem List - Problems (1) Chest pain Assessment/Plan: seen by cardiology same medications aspirin ,statin and plavix Code(s): R07.9 - CHEST PAIN, UNSPECIFIED Qualifiers: Chest pain type: unspecified Qualified Code(s): R07.9 - Chest pain, unspecified (2) Hypoglycemia Assessment/Plan: much improved since on d10 ivf endocrine eval pending solucortef given Code(s): E16.2 - HYPOGLYCEMIA, UNSPECIFIED (3) CKD (chronic kidney disease) Assessment/Plan: renal consult creatinine trending down Code(s): N18.9 - CHRONIC KIDNEY DISEASE, UNSPECIFIED Qualifiers: Chronic kidney disease stage: stage 4 (severe) Qualified Code(s): N18.4 - Chronic kidney disease, stage 4 (severe)
--- NOTE | 2018-12-02 13:20 | CONSULT ---
Consult - text type - Consultation Consultation Note: Renal consult for CKD This is a 83 year old gentleman with history of CKD stage 4 ( baseline Cr 2.8-3), CAD, hypertension, BPH who presented from home with complaints of chest pain and noted to have hypoglycemia and Cr of 3.9. Cr now improved to 3.1. Hypoglycemia resolved s/p IV dextrose. Pt also was given IVF. Denies any chest pain, sob, HERNANDEZ, flank pain, dysuria, frequency, urgency, abd pain, N/V/D, fever, chill. CP is now resolved. Making urine without difficulty. Denies any NSAID use. No recent contrast exposure. PMhx: as above Allergies NKDA Family hx: NC Social hx: No T/A/D ROS: as per HPI, all other pertinent ros negative Home Medications Medication Instructions Recorded Aspirin [ASA -] 81 mg PO DAILY 01/10/14 Bimatoprost [Lumigan] 1 drop IO BID 01/10/14 Brimonidine Tartrate [Alphagan 1 drop OU BID 01/10/14 0.15% -] Cholecalciferol (Vitamin D3) 2,000 unit PO DAILY 01/10/14 [Vitamin D3] Dorzolamide HCl/Timolol Maleat 5 ml OP BID 01/10/14 [Cosopt Eye Drops] Tamsulosin HCl 0.4 mg PO DAILY 01/10/14 Vitamin A/Vitamin D2 [Bhutanese 1 each PO DAILY 01/10/14 Cod Liver Oil Sfgl] Amlodipine Besylate [Norvasc -] 10 mg PO DAILY #30 tablet MDD 2 05/10/18 Clopidogrel Bisulfate [Plavix -] 75 mg PO DAILY #30 tablet MDD 1 05/10/18 Isosorbide Mononitrate [Imdur -] 30 mg PO BID #30 tab.sr.24h MDD 2 05/10/18 Metoprolol Tartrate [Lopressor -] 25 mg PO BID #30 tablet MDD 2 05/10/18 hydrALAZINE HCL [Apresoline -] 25 mg PO BID #30 tablet MDD 2 05/10/18 Diltiazem Cd [Cardizem Cd -] 120 mg PO DAILY #30 cap.cd.24h 10/27/18 Furosemide [Lasix -] 80 mg PO DAILY #30 tablet 10/27/18 Ferrous Sulfate, Dried [Iron] 159 mg PO DAILY 12/01/18 Vital Signs Temperature 99.3 F 12/02/18 10:00 Pulse Rate 85 12/02/18 10:00 Respiratory Rate 18 12/02/18 10:00 Blood Pressure 136/73 12/02/18 10:00 O2 Sat by Pulse Oximetry (%) 100 12/02/18 09:00 Intake & Output 11/29/18 11/30/18 12/01/18 12/02/18 23:59 23:59 23:59 23:59 Intake Total 200 1320 Output Total 400 Balance 200 920 Weight 74.843 kg NAD awake and alert RRR, No M/R CTA, no rales or wheeze soft NT/ND trace LE edema. No clubbing or cyanosis no bladder distension CBC, BMP 12/02/18 07:06 12/02/18 07:16 Current Medications Aspirin (Asa -) 81 mg PO DAILY [facility] Last Admin: 12/02/18 09:55 Dose: 81 mg Atorvastatin Calcium (Lipitor -) 40 mg PO HS [facility] Brimonidine Tartrate (Alphagan 0.15% -) 1 drop OU BID [facility] Last Admin: 12/02/18 09:55 Dose: 1 drop Cholecalciferol (Vitamin D3 -) 2,000 unit PO DAILY [facility] Last Admin: 12/02/18 09:54 Dose: 2,000 unit Clopidogrel Bisulfate (Plavix -) 75 mg PO DAILY [facility] Last Admin: 12/02/18 09:54 Dose: 75 mg Dextrose (D50w (Vial) -) 25 gm IVPUSH Q4H PRN PRN Reason: HYPOGLYCEMIA Diltiazem HCl (Cardizem Cd -) 120 mg PO DAILY [facility] Last Admin: 12/02/18 09:54 Dose: 120 mg Dorzolamide HCl (Trusopt 2%) 1 drop OU BID [facility] Furosemide (Lasix -) 80 mg PO DAILY [facility] Last Admin: 12/02/18 09:55 Dose: 80 mg Heparin Sodium (Porcine) (Heparin -) 5,000 unit SQ BID [facility] Last Admin: 12/02/18 00:47 Dose: 5,000 unit Hydralazine HCl (Apresoline -) 25 mg PO BID [facility] Last Admin: 12/02/18 09:55 Dose: 25 mg Dextrose/Sodium Chloride (D5-Ns -) 1,000 mls @ 125 mls/hr IV ASDIR [facility] Last Admin: 12/01/18 18:14 Dose: 125 mls/hr Dextrose (D10w -) 1,000 mls @ 100 mls/hr IV ASDIR [facility] Stop: 12/02/18 23:59 Last Admin: 12/02/18 03:08 Dose: 100 mls/hr Isosorbide Mononitrate (Imdur -) 30 mg PO BID [facility] Last Admin: 12/02/18 09:54 Dose: 30 mg Latanoprost (Xalatan 0.005% Eye Drops -) 1 drop OU HS [facility] Metoprolol Tartrate (Lopressor -) 25 mg PO BID [facility] Last Admin: 12/02/18 09:54 Dose: 25 mg Non-Formulary Medication (Vitamin A/Vitamin D2 [Bhutanese Cod Liver Oil Sfgl]) 1 each PO DAILY [facility] Tamsulosin HCl (Flomax -) 0.4 mg PO DAILY@0830 [facility] Last Admin: 12/02/18 08:54 Dose: 0.4 mg Timolol Maleate (Timoptic 0.5%) 1 drop OU BID [facility] 83 year old gentleman with history of CKD stage 4 (baseline Cr 2.8-3), CAD, hypertension, BPH who presented from home with complaints of chest pain and noted to have hypoglycemia and Cr of 3.9. Cr now improved to 3.1. 1. CKD stage 4 2. Hypoglycemia 3. Chest pain r/o ACS 4. Hypertnsion 5. BPH 6. Chronic anemia Renal function now improved to near baseline. Can maintain on D5W for maintenance of glucose levels would continue daily PO Laisx for edema management No acute need for SUSTAINABLE SYSTEMS ANALYST at the present time no HEENA/ARB given low eGF R Trend cardiac enzymes ECHO being done today Continue Hydrazline, diltiazem for hypertension. Bp is at goal today. continue Fomax Check iron studies, he may benefit from ANA MARÍA +/- Iron Thank you will follow Carlos Acevedo DO
--- NOTE | 2018-12-02 14:48 | ECHO ---
Name: TEJAS BYRD Exam:Adult Echocardiogram Study Date: 12/02/2018 12:48 PM Age: 83 yrs Reason For Study: Chest pain Height: 65 in Weight: 165 lb BSA: 1.8 m2 MMode/2D Measurements & Calculations IVSd: 1.1 cm Ao root diam: 2.6 cm LVIDd: 5.2 cm LVIDs: 3.2 cm LVPWd: 0.89 cm EDV(Teich): 128.8 ml LVOT diam: 2.0 cm ESV(Teich): 40.4 ml Doppler Measurements & Calculations MV E max sarbjit: 55.8 cm/sec Ao V2 max: 152.9 cm/sec MV A max sarbjit: 93.8 cm/sec Ao max P.4 mmHg MV E/A: 0.59 Ao V2 mean: 116.5 cm/sec MV dec time: 0.21 sec Ao mean P.9 mmHg Ao V2 VTI: 35.7 cm TABBY(I,D): 1.7 cm2 AI P1/2t: 417.7 msec TABBY(V,D): 1.8 cm2 AI max sarbjit: 437.4 cm/sec LV V1 max P.2 mmHg AI max P.5 mmHg LV V1 mean P.7 mmHg AI dec slope: 306.6 cm/sec2 LV V1 max: 88.8 cm/sec LV V1 mean: 62.1 cm/sec LV V1 VTI: 19.5 cm MR max sarbjit: 449.6 cm/sec SV(LVOT): 59.2 ml MR max P.9 mmHg TR max sarbjit: 198.4 cm/sec PI end-d sarbjit: 74.7 cm/sec TR max P.2 mmHg Med Peak E' Sarbjit: 6.5 cm/sec Med E/e': 8.6 Lat Peak E' Sarbjit: 4.0 cm/sec Lat E/e': 13.9 Procedure A complete two-dimensional transthoracic echocardiogram was performed (2D, M-mode, Doppler and color flow Doppler). Left Ventricle The left ventricular size, thickness and function are normal. The left ventricular ejection fraction is normal. Ejection Fraction = 60-65%. The left ventricular wall motion is normal. Right Ventricle The right ventricle is normal in size and function. Atria Normal left and right atrial size and function. Mitral Valve There is trace mitral regurgitation. Tricuspid Valve There is trace tricuspid regurgitation. Right ventricular systolic pressure is normal. Aortic Valve The aortic valve is trileaflet. No hemodynamically significant valvular aortic stenosis. Mild aortic regurgitation. Pulmonic Valve Trace pulmonic valvular regurgitation. Great Vessels The aortic root is normal size. Pericardium/Pleura There is no pericardial effusion. Interpretation Summary The left ventricular size, thickness and function are normal The right ventricle is normal in size and function. There is trace mitral regurgitation. There is trace tricuspid regurgitation. Mild aortic regurgitation. Trace pulmonic valvular regurgitation. MD Greg Johnson 12/02/2018 02:47 PM
[2018-12-02] MEDS: HYDROCORTISONE SOD SUCCINATE 100 MG/2 ML VIAL IVPUSH SCH (17:55)
[2018-12-02] MEDS ORDERED: DEXTROSE 5%-0.45% SALINE 1,000 ML IV SCH (19:45)
--- NOTE | 2018-12-02 19:50 | CONSULT ---
Consult Consult Specialty:: endocrine Referred by:: Shantal shipman MD Reason for Consultation:: hypoglycemia non diabetic - History of Present Illness Chief Complaint: low sugar nearly passed out History of Present Illness: 83 y/o male with past medical history of HTN, HLD, CAD s/p stent placement. Patient experienced intermittent mid chest pain which was non-radiating and not accompanied with SOB. the chest pain and dizziness subsided when he rested. While in ER noted with BS 27mg/dL, received dextrose 25g IVP and BS improved, patient denies hx of diabetes. he has lost over 30lbs in 6 months, taking water pills,and loss of appetite.denies nausea vomiting or diarhea. - Past Medical History Cardio/Vascular: Yes: CAD, HTN, Hyperlipdemia - Past Surgical History Past Surgical History: Yes: Stent - Alcohol/Substance Use Hx Alcohol Use: No - Smoking History Smoking history: Never smoked Have you smoked in the past 12 months: No Aproximately how many cigarettes per day: 0 - Social History ADL: Independent History of Recent Travel: No Home Medications - Allergies Allergies/Adverse Reactions: Allergies Allergy/AdvReac Type Severity Reaction Status Date / Time No Known Drug Allergies Allergy Verified 11/15/18 11:03 - Home Medications Home Medications: Ambulatory Orders Aspirin [ASA -] 81 mg PO DAILY 01/10/14 Bimatoprost [Lumigan] 1 drop IO BID 01/10/14 Brimonidine Tartrate [Alphagan 0.15% -] 1 drop OU BID 01/10/14 Cholecalciferol (Vitamin D3) [Vitamin D3] 2,000 unit PO DAILY 01/10/14 Dorzolamide HCl/Timolol Maleat [Cosopt Eye Drops] 5 ml OP BID 01/10/14 Tamsulosin HCl 0.4 mg PO DAILY 01/10/14 Vitamin A/Vitamin D2 [[place] Cod Liver Oil Sfgl] 1 each PO DAILY 01/10/14 Amlodipine Besylate [Norvasc -] 10 mg PO DAILY #30 tablet MDD 2 05/10/18 Clopidogrel Bisulfate [Plavix -] 75 mg PO DAILY #30 tablet MDD 1 05/10/18 Isosorbide Mononitrate [Imdur -] 30 mg PO BID #30 tab.sr.24h MDD 2 05/10/18 Metoprolol Tartrate [Lopressor -] 25 mg PO BID #30 tablet MDD 2 05/10/18 hydrALAZINE HCL [Apresoline -] 25 mg PO BID #30 tablet MDD 2 05/10/18 Diltiazem Cd [Cardizem Cd -] 120 mg PO DAILY #30 cap.cd.24h 10/27/18 Furosemide [Lasix -] 80 mg PO DAILY #30 tablet 10/27/18 Ferrous Sulfate, Dried [Iron] 159 mg PO DAILY 12/01/18 Review of Systems - Review of Systems Constitutional: reports: Lethargy, Weakness Eyes: reports: No Symptoms HENT: reports: No Symptoms Neck: reports: No Symptoms Cardiovascular: reports: Shortness of Breath Respiratory: reports: Exercise Intolerance, SOB on Exertion Gastrointestinal: reports: Constipation Genitourinary: reports: Frequency Breasts: reports: No Symptoms Reported Musculoskeletal: reports: Muscle Pain, Muscle Cramps, Muscle Weakness Neurological: reports: Numbness, Weakness Endocrine: reports: Unexplained Weight Loss Physical Exam Vital Signs: Vital Signs Temperature 99 F 12/02/18 16:07 Pulse Rate 75 12/02/18 16:07 Respiratory Rate 18 12/02/18 16:07 Blood Pressure 146/73 12/02/18 16:07 O2 Sat by Pulse Oximetry (%) 100 12/02/18 15:00 Constitutional: Yes: Calm Eyes: Yes: EOM Intact HENT: Yes: Normocephalic Neck: Yes: Trachea Midline Cardiovascular: Yes: Tachycardia Respiratory: Yes: CTA Bilaterally Gastrointestinal: Yes: Normal Bowel Sounds ...Rectal Exam: Yes: Deferred Renal/: Yes: Other Musculoskeletal: Yes: Back Pain, Muscle Pain, Muscle Weakness Extremities: Yes: Cool, Delayed Capillary Refill Edema: LLE: 1+, RLE: 1+ Neurological: Yes: Alert, Oriented, Weakness Labs: CBC, BMP 12/02/18 07:06 12/02/18 07:16 Problem List - Problems (1) Hypoglycemia Code(s): E16.2 - HYPOGLYCEMIA, UNSPECIFIED (2) Acute renal failure Code(s): N17.9 - ACUTE KIDNEY FAILURE, UNSPECIFIED Qualifiers: Acute renal failure type: with acute renal cortical necrosis Qualified Code (s): N17.1 - Acute kidney failure with acute cortical necrosis (3) CKD (chronic kidney disease) Code(s): N18.9 - CHRONIC KIDNEY DISEASE, UNSPECIFIED Qualifiers: Chronic kidney disease stage: stage 4 (severe) Qualified Code(s): N18.4 - Chronic kidney disease, stage 4 (severe) (4) Chest pain, rule out acute myocardial infarction Code(s): R07.9 - CHEST PAIN, UNSPECIFIED Assessment/Plan Current Active Problems akd,dehydration Chest pain (Acute) Dizziness (Acute) Hypoglycemia (Acute) Abnormal Lab Results 12/01/18 12/02/18 12/02/18 22:50 07:06 07:16 RBC 2.66 L Hgb 8.4 L Hct 25.3 L MPV 7.2 L Monocytes % 12.9 H Chloride 108 H BUN 51.2 H Creatinine 3.1 H Plasma Glucose Random Glucose 31 L* 61 L Calcium 8.3 L Magnesium 1.6 L AST 13 L ALT 10 L CK-MB (CK-2) Troponin I 0.61 H* Total Protein 5.7 L Albumin 2.8 L HDL Cholesterol 73 H 12/02/18 12/02/18 10:00 12:32 RBC Hgb Hct MPV Monocytes % Chloride BUN Creatinine Plasma Glucose 70 L Random Glucose Calcium Magnesium AST ALT CK-MB (CK-2) 5.2 H Troponin I 0.69 H* Total Protein Albumin HDL Cholesterol Laboratory Results - last 24 hr 12/01/18 12/01/18 12/01/18 20:51 22:24 22:50 WBC RBC Hgb Hct MCV MCH MCHC RDW Plt Count MPV Absolute Neuts (auto) Neutrophils % Lymphocytes % Monocytes % Eosinophils % Basophils % Nucleated RBC % Sodium Potassium Chloride Carbon Dioxide Anion Gap BUN Creatinine Est GFR (CKD-EPI)AfAm Est GFR (CKD-EPI)NonAf Plasma Glucose POC Glucometer 22 14 Random Glucose 31 L* Hemoglobin A1c % Calcium Phosphorus Magnesium Total Bilirubin AST ALT Alkaline Phosphatase Creatine Kinase Creatine Kinase Index CK-MB (CK-2) Troponin I Total Protein Albumin Triglycerides Cholesterol Total LDL Cholesterol HDL Cholesterol TSH 12/01/18 12/02/18 12/02/18 23:09 00:50 02:49 WBC RBC Hgb Hct MCV MCH MCHC RDW Plt Count MPV Absolute Neuts (auto) Neutrophils % Lymphocytes % Monocytes % Eosinophils % Basophils % Nucleated RBC % Sodium Potassium Chloride Carbon Dioxide Anion Gap BUN Creatinine Est GFR (CKD-EPI)AfAm Est GFR (CKD-EPI)NonAf Plasma Glucose POC Glucometer 54 82 33 Random Glucose Hemoglobin A1c % Calcium Phosphorus Magnesium Total Bilirubin AST ALT Alkaline Phosphatase Creatine Kinase Creatine Kinase Index CK-MB (CK-2) Troponin I Total Protein Albumin Triglycerides Cholesterol Total LDL Cholesterol HDL Cholesterol TSH 12/02/18 12/02/18 12/02/18 04:02 05:11 06:09 WBC RBC Hgb Hct MCV MCH MCHC RDW Plt Count MPV Absolute Neuts (auto) Neutrophils % Lymphocytes % Monocytes % Eosinophils % Basophils % Nucleated RBC % Sodium Potassium Chloride Carbon Dioxide Anion Gap BUN Creatinine Est GFR (CKD-EPI)AfAm Est GFR (CKD-EPI)NonAf Plasma Glucose POC Glucometer 72 47 52 Random Glucose Hemoglobin A1c % Calcium Phosphorus Magnesium Total Bilirubin AST ALT Alkaline Phosphatase Creatine Kinase Creatine Kinase Index CK-MB (CK-2) Troponin I Total Protein Albumin Triglycerides Cholesterol Total LDL Cholesterol HDL Cholesterol TSH 12/02/18 12/02/18 12/02/18 07:06 07:15 07:16 WBC 4.9 RBC 2.66 L Hgb 8.4 L Hct 25.3 L MCV 95.0 MCH 31.6 MCHC 33.3 RDW 15.3 Plt Count 289 MPV 7.2 L Absolute Neuts (auto) 3.7 Neutrophils % 74.3 Lymphocytes % 10.2 D Monocytes % 12.9 H Eosinophils % 2.1 D Basophils % 0.5 D Nucleated RBC % 0 Sodium 139 Potassium 5.1 Chloride 108 H Carbon Dioxide 22 Anion Gap 8 BUN 51.2 H Creatinine 3.1 H Est GFR (CKD-EPI)AfAm 20.31 Est GFR (CKD-EPI)NonAf 17.52 Plasma Glucose POC Glucometer Random Glucose 61 L Hemoglobin A1c % 6.0 Calcium 8.3 L Phosphorus 2.6 Magnesium 1.6 L Total Bilirubin 0.2 AST 13 L ALT 10 L Alkaline Phosphatase 81 Creatine Kinase 147 Creatine Kinase Index CK-MB (CK-2) Troponin I 0.61 H* Total Protein 5.7 L Albumin 2.8 L Triglycerides 26 Cholesterol 170 Total LDL Cholesterol 85 HDL Cholesterol 73 H TSH 0.70 D 12/02/18 12/02/18 12/02/18 07:37 09:13 10:00 WBC RBC Hgb Hct MCV MCH MCHC RDW Plt Count MPV Absolute Neuts (auto) Neutrophils % Lymphocytes % Monocytes % Eosinophils % Basophils % Nucleated RBC % Sodium Potassium Chloride Carbon Dioxide Anion Gap BUN Creatinine Est GFR (CKD-EPI)AfAm Est GFR (CKD-EPI)NonAf Plasma Glucose 70 L POC Glucometer 55 79 Random Glucose Hemoglobin A1c % Calcium Phosphorus Magnesium Total Bilirubin AST ALT Alkaline Phosphatase Creatine Kinase Creatine Kinase Index CK-MB (CK-2) Troponin I Total Protein Albumin Triglycerides Cholesterol Total LDL Cholesterol HDL Cholesterol TSH 12/02/18 12/02/18 12/02/18 10:57 12:11 12:32 WBC RBC Hgb Hct MCV MCH MCHC RDW Plt Count MPV Absolute Neuts (auto) Neutrophils % Lymphocytes % Monocytes % Eosinophils % Basophils % Nucleated RBC % Sodium Potassium Chloride Carbon Dioxide Anion Gap BUN Creatinine Est GFR (CKD-EPI)AfAm Est GFR (CKD-EPI)NonAf Plasma Glucose POC Glucometer 65 103 Random Glucose Hemoglobin A1c % Calcium Phosphorus Magnesium Total Bilirubin AST ALT Alkaline Phosphatase Creatine Kinase 153 Creatine Kinase Index 3.3 CK-MB (CK-2) 5.2 H Troponin I 0.69 H* Total Protein Albumin Triglycerides Cholesterol Total LDL Cholesterol HDL Cholesterol TSH 12/02/18 12/02/18 12/02/18 13:15 14:31 15:41 WBC RBC Hgb Hct MCV MCH MCHC RDW Plt Count MPV Absolute Neuts (auto) Neutrophils % Lymphocytes % Monocytes % Eosinophils % Basophils % Nucleated RBC % Sodium Potassium Chloride Carbon Dioxide Anion Gap BUN Creatinine Est GFR (CKD-EPI)AfAm Est GFR (CKD-EPI)NonAf Plasma Glucose POC Glucometer 91 139 158 Random Glucose Hemoglobin A1c % Calcium Phosphorus Magnesium Total Bilirubin AST ALT Alkaline Phosphatase Creatine Kinase Creatine Kinase Index CK-MB (CK-2) Troponin I Total Protein Albumin Triglycerides Cholesterol Total LDL Cholesterol HDL Cholesterol TSH 12/02/18 17:04 WBC RBC Hgb Hct MCV MCH MCHC RDW Plt Count MPV Absolute Neuts (auto) Neutrophils % Lymphocytes % Monocytes % Eosinophils % Basophils % Nucleated RBC % Sodium Potassium Chloride Carbon Dioxide Anion Gap BUN Creatinine Est GFR (CKD-EPI)AfAm Est GFR (CKD-EPI)NonAf Plasma Glucose POC Glucometer 195 Random Glucose Hemoglobin A1c % Calcium Phosphorus Magnesium Total Bilirubin AST ALT Alkaline Phosphatase Creatine Kinase Creatine Kinase Index CK-MB (CK-2) Troponin I Total Protein Albumin Triglycerides Cholesterol Total LDL Cholesterol HDL Cholesterol TSH plan: iv fluids rehydration dextrose 10% iv solucortef ck cpeptide,cortisol, proinsulin ck bgm q1hr glucagon for recurrent hypoglycemia prn gi consult
[2018-12-02] MEDS: ATORVASTATIN CA 40 MG TABLET (FP) PO SCH (22:04)
[2018-12-02] MEDS: LATANOPROST 0.005% OPHTH SOLN 2.5ML BOTTLE OU SCH (22:06)
[2018-12-03] MEDS: HYDROCORTISONE SOD SUCCINATE 100 MG/2 ML VIAL IVPUSH SCH ×2 (01:33→10:49)
[2018-12-03 08:17] LABS: BASO % 0.3 % (0-2.0); EOS % 0.1 % (0-4.5); HEMATOCRIT 26.4 % (35.4-49); HEMOGLOBIN 8.9 GM/dL (11.7-16.9); LYMPH % 9.3 % (8-40); MCH 31.5 pg (25.7-33.7); MCHC 33.8 g/dl (32.0-35.9); MEAN CELL VOLUME 93.1 fl (80-96); MEAN PLT VOLUME 7.4 fl (7.5-11.1); MONO % 3.9 % (3.8-10.2); NEUT % 86.4 % (42.8-82.8); PLATELET COUNT 288 K/MM3 (134-434); RBC 2.84 M/mm3 (4.00-5.60); RDW 14.7 % (11.9-15.9); WHITE BLOOD COUNT 5.7 K/mm3 (4.0-10.0)
[2018-12-03 08:43] LABS: ALBUMIN 2.7 g/dl (3.4-5.0); BILIRUBIN,TOTAL 0.4 mg/dL (0.2-1); BLOOD UREA NITROGEN 53.6 mg/dL (7-18); CALCIUM 8.2 mg/dL (8.5-10.1); CREATININE 3.2 mg/dL (0.55-1.3); MAGNESIUM 1.5 mg/dL (1.8-2.4); PHOSPHOROUS 2.8 mg/dL (2.5-4.9); POTASSIUM 4.7 mmol/L (3.5-5.1); TOT PROT 5.9 g/dl (6.4-8.2)
--- NOTE | 2018-12-03 09:52 | PN ---
Progress Note, Physician Chief Complaint: no CP, SOB TELE: NSR History of Present Illness: no CP or SOB - Current Medication List Current Medications: Active Medications Aspirin (Asa -) 81 mg PO DAILY [facility] Last Admin: 12/02/18 09:55 Dose: 81 mg Atorvastatin Calcium (Lipitor -) 40 mg PO HS [facility] Last Admin: 12/02/18 22:04 Dose: 40 mg Brimonidine Tartrate (Alphagan 0.15% -) 1 drop OU BID [facility] Last Admin: 12/02/18 22:05 Dose: 1 drop Cholecalciferol (Vitamin D3 -) 2,000 unit PO DAILY [facility] Last Admin: 12/02/18 09:54 Dose: 2,000 unit Clopidogrel Bisulfate (Plavix -) 75 mg PO DAILY [facility] Last Admin: 12/02/18 09:54 Dose: 75 mg Dextrose (D50w (Vial) -) 25 gm IVPUSH Q4H PRN PRN Reason: HYPOGLYCEMIA Diltiazem HCl (Cardizem Cd -) 120 mg PO DAILY [facility] Last Admin: 12/02/18 09:54 Dose: 120 mg Dorzolamide HCl (Trusopt 2%) 1 drop OU BID [facility] Last Admin: 12/02/18 22:06 Dose: Not Given Furosemide (Lasix -) 80 mg PO DAILY [facility] Last Admin: 12/02/18 09:55 Dose: 80 mg Heparin Sodium (Porcine) (Heparin -) 5,000 unit SQ BID [facility] Last Admin: 12/02/18 22:04 Dose: 5,000 unit Hydralazine HCl (Apresoline -) 25 mg PO BID [facility] Last Admin: 12/02/18 22:04 Dose: 25 mg Hydrocortisone Sodium Succinate (Solu-Cortef -) 100 mg IVPUSH Q8H-IV [facility] Last Admin: 12/03/18 01:33 Dose: 100 mg Dextrose/Sodium Chloride (D5-1/2ns -) 1,000 mls @ 60 mls/hr IV ASDIR [facility] Last Admin: 12/02/18 20:29 Dose: 60 mls/hr Isosorbide Mononitrate (Imdur -) 30 mg PO BID [facility] Last Admin: 12/02/18 22:04 Dose: 30 mg Latanoprost (Xalatan 0.005% Eye Drops -) 1 drop OU HS [facility] Last Admin: 12/02/18 22:06 Dose: Not Given Metoprolol Tartrate (Lopressor -) 25 mg PO BID [facility] Last Admin: 12/02/18 22:05 Dose: 25 mg Non-Formulary Medication (Vitamin A/Vitamin D2 [[place] Cod Liver Oil Sfgl]) 1 each PO DAILY [facility] Tamsulosin HCl (Flomax -) 0.4 mg PO DAILY@0830 [facility] Last Admin: 12/02/18 08:54 Dose: 0.4 mg Timolol Maleate (Timoptic 0.5%) 1 drop OU BID [facility] Last Admin: 12/02/18 22:06 Dose: Not Given - Objective Vital Signs: Vital Signs Temperature 98.7 F 12/03/18 06:00 Pulse Rate 77 12/03/18 06:00 Respiratory Rate 18 12/03/18 06:00 Blood Pressure 142/70 12/03/18 06:00 O2 Sat by Pulse Oximetry (%) 96 12/02/18 21:00 Constitutional: Yes: No Distress, Calm Eyes: Yes: Conjunctiva Clear Cardiovascular: Yes: Regular Rate and Rhythm Respiratory: Yes: CTA Bilaterally Gastrointestinal: Yes: Soft (NT) Edema: No Neurological: Yes: Alert, Oriented ...Motor Strength: WNL Labs: CBC, BMP 12/03/18 07:20 12/03/18 07:20 INR, PTT INR 0.99 (0.83-1.09) 12/01/18 11:54 Laboratory Tests 12/01/18 12/02/18 12/02/18 11:54 07:16 12:32 Creatine Kinase 125 147 153 CK-MB (CK-2) 5.2 H Troponin I 0.02 0.61 H* 0.69 H* - ....Imaging EKG: Image Reviewed Assessment/Plan DATA: EKG: sinus, 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 chest pain, h/o CAD, +trops: - here with mild trop elevation, nl ck. ecg w/o ischemic changes. Seems to be demand ischemia 2/2 multiple episodes of hypoglycemia. Cont to trend ce's, monitor tele. Echo normal LVEF - mibi unremarkable 04/2018 - cont aspirin, statin, plavix, imdur, bb - during prior admit 04/2018 with mild trop elevation as well and had unremarkable mibi then and pt was not interested in cath due to risk of WILLIE and need for HD. Will continue with med rx for now unless clinical picture seems more like acs: and he has remained chest pain free with flat TnI. Thus, previous plan for medical therapy seems most appropriate HTN -cont home meds HLD -cont statin CKD -cr stable
[2018-12-03] MEDS ORDERED: PT OWN MED DRAWER 7, Y5N ONE (10:30)
[2018-12-03] MEDS: FUROSEMIDE 40 MG TABLET (FP) PO SCH (10:48)
[2018-12-03] MEDS: CHOLECALCIFEROL (VIT D3) 1,000 UNIT (25 MCG) TABLET PO SCH (10:48)
[2018-12-03] MEDS: HEPARIN NA (PORCINE) 5,000 UNITS/ML 1ML VIAL SQ SCH ×2 (10:49→22:19)
[2018-12-03] MEDS: ISOSORBIDE MONONITRATE 30 MG TAB.SR.24H (FP) PO SCH ×2 (10:49→22:19)
[2018-12-03] MEDS: METOPROLOL TARTRATE 25 MG TABLET (FP) PO SCH ×2 (10:49→22:20)
[2018-12-03] MEDS: CLOPIDOGREL BISULFATE 75 MG TABLET (FP) PO SCH (10:49)
[2018-12-03] MEDS: TAMSULOSIN HCL 0.4 MG CAP PO SCH (10:49)
[2018-12-03] MEDS: hydrALAZINE HCL 25 MG TABLET (FP) PO SCH ×2 (10:49→22:19)
[2018-12-03] MEDS: ASPIRIN 81 MG CHEWABLE TABLETS PO SCH (10:50)
[2018-12-03] MEDS: BRIMONIDINE TARTRATE 0.15% OPHTHALMIC 5 ML BOTTLE OU SCH ×2 (10:50→22:19)
[2018-12-03] MEDS ORDERED: MAGNESIUM SULF 50% (8.12 MEQ/2 ML-1 GM VIAL) IVPB ONE (12:23)
--- NOTE | 2018-12-03 12:27 | PN ---
Progress Note, Physician Chief Complaint: patient seen and examined bgm better stil on iv dextrose 10% endocrine eval noted complainis of left knee pain - Current Medication List Current Medications: Active Medications Aspirin (Asa -) 81 mg PO DAILY [facility] Last Admin: 12/03/18 10:50 Dose: 81 mg Atorvastatin Calcium (Lipitor -) 40 mg PO HS [facility] Last Admin: 12/02/18 22:04 Dose: 40 mg Brimonidine Tartrate (Alphagan 0.15% -) 1 drop OU BID [facility] Last Admin: 12/03/18 10:50 Dose: 1 drop Cholecalciferol (Vitamin D3 -) 2,000 unit PO DAILY [facility] Last Admin: 12/03/18 10:48 Dose: 2,000 unit Clopidogrel Bisulfate (Plavix -) 75 mg PO DAILY [facility] Last Admin: 12/03/18 10:49 Dose: 75 mg Dextrose (D50w (Vial) -) 25 gm IVPUSH Q4H PRN PRN Reason: HYPOGLYCEMIA Diltiazem HCl (Cardizem Cd -) 120 mg PO DAILY [facility] Last Admin: 12/03/18 10:49 Dose: 120 mg Dorzolamide HCl (Trusopt 2%) 1 drop OU BID [facility] Last Admin: 12/02/18 22:06 Dose: Not Given Furosemide (Lasix -) 80 mg PO DAILY [facility] Last Admin: 12/03/18 10:48 Dose: 80 mg Heparin Sodium (Porcine) (Heparin -) 5,000 unit SQ BID [facility] Last Admin: 12/03/18 10:49 Dose: 5,000 unit Hydralazine HCl (Apresoline -) 25 mg PO BID [facility] Last Admin: 12/03/18 10:49 Dose: 25 mg Hydrocortisone Sodium Succinate (Solu-Cortef -) 100 mg IVPUSH Q8H-IV [facility] Last Admin: 12/03/18 10:49 Dose: 100 mg Dextrose/Sodium Chloride (D5-1/2ns -) 1,000 mls @ 60 mls/hr IV ASDIR [facility] Last Admin: 12/02/18 20:29 Dose: 60 mls/hr Isosorbide Mononitrate (Imdur -) 30 mg PO BID [facility] Last Admin: 12/03/18 10:49 Dose: 30 mg Latanoprost (Xalatan 0.005% Eye Drops -) 1 drop OU HS [facility] Last Admin: 12/02/18 22:06 Dose: Not Given Magnesium Sulfate (Magnesium Sulfate) 2 gm IVPB ONCE ONE Stop: 12/03/18 12:24 Metoprolol Tartrate (Lopressor -) 25 mg PO BID [facility] Last Admin: 12/03/18 10:49 Dose: 25 mg Non-Formulary Medication (Vitamin A/Vitamin D2 [[place] Cod Liver Oil Sfgl]) 1 each PO DAILY [facility] Tamsulosin HCl (Flomax -) 0.4 mg PO DAILY@0830 [facility] Last Admin: 12/03/18 10:49 Dose: 0.4 mg Timolol Maleate (Timoptic 0.5%) 1 drop OU BID [facility] Last Admin: 12/02/18 22:06 Dose: Not Given - Objective Vital Signs: Vital Signs Temperature 97.9 F 12/03/18 10:00 Pulse Rate 66 12/03/18 10:00 Respiratory Rate 18 12/03/18 10:00 Blood Pressure 140/74 12/03/18 10:00 O2 Sat by Pulse Oximetry (%) 96 12/03/18 09:00 Constitutional: Yes: Calm Cardiovascular: Yes: Regular Rate and Rhythm, S1, S2 Respiratory: Yes: CTA Bilaterally Gastrointestinal: Yes: Normal Bowel Sounds, Soft Neurological: Yes: Alert, Oriented Labs: CBC, BMP 12/03/18 07:20 12/03/18 07:20 INR, PTT INR 0.99 (0.83-1.09) 12/01/18 11:54 Problem List - Problems (1) Hypoglycemia Assessment/Plan: much improved since on d10 ivf endocrine eval noted solucortef q8 hr sulfanylurea screem proinsulin pending Code(s): E16.2 - HYPOGLYCEMIA, UNSPECIFIED (2) Chest pain Assessment/Plan: seen by cardiology same medications aspirin ,statin and plavix Code(s): R07.9 - CHEST PAIN, UNSPECIFIED Qualifiers: Chest pain type: unspecified Qualified Code(s): R07.9 - Chest pain, unspecified (3) CKD (chronic kidney disease) Assessment/Plan: renal on board Code(s): N18.9 - CHRONIC KIDNEY DISEASE, UNSPECIFIED Qualifiers: Chronic kidney disease stage: stage 4 (severe) Qualified Code(s): N18.4 - Chronic kidney disease, stage 4 (severe) (4) Hypomagnesemia Assessment/Plan: iv magnesium given recheck in AM Code(s): E83.42 - HYPOMAGNESEMIA
[2018-12-03 13:13] LABS: ANISOCYTOSIS 1+; MACROCYTOSIS 0; OVALOCYTE 1+; PLATELET ESTIMATE NORMAL; TEAR DROP CELLS 1+
--- NOTE | 2018-12-03 13:39 | CON.ORTH ---
Consult Reason for Consultation:: left knee pain - Past Medical History Cardio/Vascular: Yes: CAD, HTN, Hyperlipdemia - Past Surgical History Past Surgical History: Yes: Stent - Alcohol/Substance Use Hx Alcohol Use: No - Smoking History Smoking history: Never smoked Have you smoked in the past 12 months: No Aproximately how many cigarettes per day: 0 - Social History ADL: Independent History of Recent Travel: No Home Medications - Allergies Allergies/Adverse Reactions: Allergies Allergy/AdvReac Type Severity Reaction Status Date / Time No Known Drug Allergies Allergy Verified 11/15/18 11:03 - Home Medications Home Medications: Ambulatory Orders Aspirin [ASA -] 81 mg PO DAILY 01/10/14 Bimatoprost [Lumigan] 1 drop IO BID 01/10/14 Brimonidine Tartrate [Alphagan 0.15% -] 1 drop OU BID 01/10/14 Cholecalciferol (Vitamin D3) [Vitamin D3] 2,000 unit PO DAILY 01/10/14 Dorzolamide HCl/Timolol Maleat [Cosopt Eye Drops] 5 ml OP BID 01/10/14 Tamsulosin HCl 0.4 mg PO DAILY 01/10/14 Vitamin A/Vitamin D2 [[place] Cod Liver Oil Sfgl] 1 each PO DAILY 01/10/14 Amlodipine Besylate [Norvasc -] 10 mg PO DAILY #30 tablet MDD 2 05/10/18 Clopidogrel Bisulfate [Plavix -] 75 mg PO DAILY #30 tablet MDD 1 05/10/18 Isosorbide Mononitrate [Imdur -] 30 mg PO BID #30 tab.sr.24h MDD 2 05/10/18 Metoprolol Tartrate [Lopressor -] 25 mg PO BID #30 tablet MDD 2 05/10/18 hydrALAZINE HCL [Apresoline -] 25 mg PO BID #30 tablet MDD 2 05/10/18 Diltiazem Cd [Cardizem Cd -] 120 mg PO DAILY #30 cap.cd.24h 10/27/18 Furosemide [Lasix -] 80 mg PO DAILY #30 tablet 10/27/18 Ferrous Sulfate, Dried [Iron] 159 mg PO DAILY 12/01/18 Physical Exam for Ortho Vital Signs: Vital Signs Temperature 97.9 F 12/03/18 10:00 Pulse Rate 66 12/03/18 10:00 Respiratory Rate 18 09/13/19 10:00 Blood Pressure 140/74 12/03/18 10:00 O2 Sat by Pulse Oximetry (%) 96 12/03/18 09:00 Labs: CBC, BMP 12/03/18 07:20 12/03/18 07:20 INR, PTT INR 0.99 (0.83-1.09) 12/01/18 11:54 - Lower Extremity Knee: Yes: Left, Pain, Swelling, Tenderness, Other (+ swelling, + ttp, rom 0-90 , calf soft, nt, nvi) Imaging - Results X-ray: Report Reviewed, Image Reviewed Assessment/Plan 83 y/o male with past medical history of HTN, HLD, CAD s/p stent placement. Admitted for Patient mid chest pain and hypoglycemia. Pt states that he had a fall [facility] approx 2 weeks ago. He was able to ambulate without difficulty. 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 He states that the pain is currently manageable. Denies any numbness/tingling. a/p left knee tricompartmental djd- no acute pathology d/w pt in detail PT wbat f/u as outpt in 10-14 days d/w Dr. Mcelroy
--- NOTE | 2018-12-03 14:54 | PN ---
Progress Note (short form) - Note Progress Note: Renal follow up for CKD Seen and examined at the bedside Pt reports feeling dizzy earlier when he was changing positions no dizziness now, no chest pain, palpitations, or SOB making urine without difficulty Vital Signs Temperature 97.9 F 12/03/18 10:00 Pulse Rate 66 12/03/18 10:00 Respiratory Rate 18 12/03/18 10:00 Blood Pressure 140/74 12/03/18 10:00 O2 Sat by Pulse Oximetry (%) 96 12/03/18 09:00 Intake & Output 11/30/18 12/01/18 12/02/18 12/03/18 23:59 23:59 23:59 23:59 Intake Total 200 2400 660 Output Total 400 Balance 200 2000 660 Weight 74.843 kg 76.748 kg NAD RRR CTA no LE edema CBC, BMP 12/03/18 07:20 12/03/18 07:20 Current Medications Aspirin (Asa -) 81 mg PO DAILY [facility] Last Admin: 12/03/18 10:50 Dose: 81 mg Atorvastatin Calcium (Lipitor -) 40 mg PO HS [facility] Last Admin: 12/02/18 22:04 Dose: 40 mg Brimonidine Tartrate (Alphagan 0.15% -) 1 drop OU BID [facility] Last Admin: 12/03/18 10:50 Dose: 1 drop Cholecalciferol (Vitamin D3 -) 2,000 unit PO DAILY [facility] Last Admin: 12/03/18 10:48 Dose: 2,000 unit Clopidogrel Bisulfate (Plavix -) 75 mg PO DAILY [facility] Last Admin: 12/03/18 10:49 Dose: 75 mg Dextrose (D50w (Vial) -) 25 gm IVPUSH Q4H PRN PRN Reason: HYPOGLYCEMIA Diltiazem HCl (Cardizem Cd -) 120 mg PO DAILY [facility] Last Admin: 12/03/18 10:49 Dose: 120 mg Dorzolamide HCl (Trusopt 2%) 1 drop OU BID [facility] Last Admin: 12/02/18 22:06 Dose: Not Given Furosemide (Lasix -) 80 mg PO DAILY [facility] Last Admin: 12/03/18 10:48 Dose: 80 mg Heparin Sodium (Porcine) (Heparin -) 5,000 unit SQ BID [facility] Last Admin: 12/03/18 10:49 Dose: 5,000 unit Hydralazine HCl (Apresoline -) 25 mg PO BID [facility] Last Admin: 12/03/18 10:49 Dose: 25 mg Hydrocortisone Sodium Succinate (Solu-Cortef -) 100 mg IVPUSH Q8H-IV [facility] Last Admin: 12/03/18 10:49 Dose: 100 mg Dextrose/Sodium Chloride (D5-1/2ns -) 1,000 mls @ 60 mls/hr IV ASDIR [facility] Last Admin: 12/02/18 20:29 Dose: 60 mls/hr Isosorbide Mononitrate (Imdur -) 30 mg PO BID [facility] Last Admin: 12/03/18 10:49 Dose: 30 mg Latanoprost (Xalatan 0.005% Eye Drops -) 1 drop OU HS [facility] Last Admin: 12/02/18 22:06 Dose: Not Given Metoprolol Tartrate (Lopressor -) 25 mg PO BID [facility] Last Admin: 12/03/18 10:49 Dose: 25 mg Non-Formulary Medication (Vitamin A/Vitamin D2 [[place] Cod Liver Oil Sfgl]) 1 each PO DAILY [facility] Tamsulosin HCl (Flomax -) 0.4 mg PO DAILY@0830 [facility] Last Admin: 12/03/18 10:49 Dose: 0.4 mg Timolol Maleate (Timoptic 0.5%) 1 drop OU BID [facility] Last Admin: 12/02/18 22:06 Dose: Not Given 83 year old gentleman with history of CKD stage 4 (baseline Cr 2.8-3), CAD, hypertension, BPH who presented from home with complaints of chest pain and noted to have hypoglycemia and Cr of 3.9. Cr now improved to 3.1. 1. CKD stage 4 2. Hypoglycemia 3. Chest pain r/o ACS 4. Hypertnsion 5. BPH 6. Chronic anemia Renal function stable and at baseline no acute need for dialysis would continue daily PO Laisx for edema management no HEENA/ARB given low eGFR Cardiology and endocrine following ECHO being done today Continue Hydrazline, diltiazem for hypertension. Bp is at goal today. Check orthostatic BP continue Fomax follow up iron studies, he may benefit from ANA MARÍA +/- Iron Thank you will follow Carlos Acevedo DO
[2018-12-03] MEDS ORDERED: DEXTROSE 5%-0.45% SALINE 1,000 ML IV SCH (15:29)
[2018-12-03] MEDS: TIMOLOL 0.5% OPHTHALMIC SOL 5 ML BOTTLE OU SCH (22:18)
[2018-12-03] MEDS: DORZOLAMIDE 2% HCL OPHTHALMIC SOLUTION 10 ML BOTTLE OU SCH (22:18)
[2018-12-03] MEDS: ATORVASTATIN CA 40 MG TABLET (FP) PO SCH (22:19)
[2018-12-03] MEDS: HYDROCORTISONE SOD SUCCINATE 100 MG/2 ML VIAL IVPB SCH (22:20)
[2018-12-03] MEDS: LATANOPROST 0.005% OPHTH SOLN 2.5ML BOTTLE OU SCH (22:27)
[2018-12-04 07:35] LABS: ALBUMIN 2.8 g/dl (3.4-5.0); BILIRUBIN,TOTAL 0.3 mg/dL (0.2-1); BLOOD UREA NITROGEN 65.2 mg/dL (7-18); CALCIUM 8.1 mg/dL (8.5-10.1); CREATININE 3.3 mg/dL (0.55-1.3); MAGNESIUM 1.9 mg/dL (1.8-2.4); POTASSIUM 4.4 mmol/L (3.5-5.1); TOT PROT 5.7 g/dl (6.4-8.2)
--- NOTE | 2018-12-04 08:37 | PN ---
Progress Note, Physician Chief Complaint: TELE: NSR, artifact. Eating breakfast, denies CP or SOB. - Current Medication List Current Medications: Active Medications Aspirin (Asa -) 81 mg PO DAILY [facility] Last Admin: 12/03/18 10:50 Dose: 81 mg Atorvastatin Calcium (Lipitor -) 40 mg PO HS [facility] Last Admin: 12/03/18 22:19 Dose: 40 mg Brimonidine Tartrate (Alphagan 0.15% -) 1 drop OU BID [facility] Last Admin: 12/03/18 22:19 Dose: 1 drop Cholecalciferol (Vitamin D3 -) 2,000 unit PO DAILY [facility] Last Admin: 12/03/18 10:48 Dose: 2,000 unit Clopidogrel Bisulfate (Plavix -) 75 mg PO DAILY [facility] Last Admin: 12/03/18 10:49 Dose: 75 mg Dextrose (D50w (Vial) -) 25 gm IVPUSH Q4H PRN PRN Reason: HYPOGLYCEMIA Diltiazem HCl (Cardizem Cd -) 120 mg PO DAILY [facility] Last Admin: 12/03/18 10:49 Dose: 120 mg Dorzolamide HCl (Trusopt 2%) 1 drop OU BID [facility] Last Admin: 12/03/18 22:18 Dose: Not Given Furosemide (Lasix -) 80 mg PO DAILY [facility] Last Admin: 12/03/18 10:48 Dose: 80 mg Heparin Sodium (Porcine) (Heparin -) 5,000 unit SQ BID [facility] Last Admin: 12/03/18 22:19 Dose: 5,000 unit Hydralazine HCl (Apresoline -) 25 mg PO BID [facility] Last Admin: 12/03/18 22:19 Dose: 25 mg Hydrocortisone Sodium Succinate (Solu-Cortef -) 100 mg IVPB BID [facility] Last Admin: 12/03/18 22:20 Dose: 100 mg Dextrose/Sodium Chloride (D5-1/2ns -) 1,000 mls @ 42 mls/hr IV ASDIR [facility] Last Admin: 12/03/18 15:41 Dose: 42 mls/hr Isosorbide Mononitrate (Imdur -) 30 mg PO BID [facility] Last Admin: 12/03/18 22:19 Dose: 30 mg Latanoprost (Xalatan 0.005% Eye Drops -) 1 drop OU HS [facility] Last Admin: 12/03/18 22:27 Dose: 1 drop Metoprolol Tartrate (Lopressor -) 25 mg PO BID [facility] Last Admin: 12/03/18 22:20 Dose: 25 mg Non-Formulary Medication (Vitamin A/Vitamin D2 [[place] Cod Liver Oil Sfgl]) 1 each PO DAILY [facility] Tamsulosin HCl (Flomax -) 0.4 mg PO DAILY@0830 [facility] Last Admin: 12/03/18 10:49 Dose: 0.4 mg Timolol Maleate (Timoptic 0.5%) 1 drop OU BID [facility] Last Admin: 12/03/18 22:18 Dose: Not Given - Objective Vital Signs: Vital Signs Temperature 98.1 F 12/04/18 05:00 Pulse Rate 61 12/04/18 05:00 Respiratory Rate 20 12/04/18 05:00 Blood Pressure 127/58 L 12/04/18 05:00 O2 Sat by Pulse Oximetry (%) 100 12/03/18 21:00 Constitutional: Yes: Calm Cardiovascular: Yes: Regular Rate and Rhythm Respiratory: Yes: CTA Bilaterally Gastrointestinal: Yes: Soft Edema: No Neurological: Yes: Alert, Oriented Labs: CBC, BMP 12/03/18 07:20 12/04/18 06:25 INR, PTT INR 0.99 (0.83-1.09) 12/01/18 11:54 - ....Imaging EKG: Image Reviewed Assessment/Plan Assessment/Plan DATA: EKG: sinus, 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 Chest pain, h/o CAD, +trops: - here with mild trop elevation, nl ck. ecg w/o ischemic changes. Seems to be demand ischemia 2/2 multiple episodes of hypoglycemia. Enzymes flat, no arrhythmias on tele. Echo normal LVEF - mibi unremarkable 04/2018 - cont aspirin, statin, plavix, imdur, bb - during prior admit 04/2018 with mild trop elevation as well and had unremarkable mibi then and pt was not interested in cath due to risk of WILLIE and need for HD. Will continue with med rx for now unless clinical picture seems more like acs: and he has remained chest pain free with flat TnI. Thus, previous plan for medical therapy seems most appropriate HTN -cont home meds CKD -cr stable
[2018-12-04] MEDS ORDERED: PT OWN MED DRAWER 7, Y5N ONE (09:02)
[2018-12-04] MEDS: ASPIRIN 81 MG CHEWABLE TABLETS PO SCH (09:43)
[2018-12-04] MEDS: CLOPIDOGREL BISULFATE 75 MG TABLET (FP) PO SCH (09:43)
[2018-12-04] MEDS: hydrALAZINE HCL 25 MG TABLET (FP) PO SCH ×2 (09:44→22:59)
[2018-12-04] MEDS: HEPARIN NA (PORCINE) 5,000 UNITS/ML 1ML VIAL SQ SCH ×2 (09:44→23:02)
[2018-12-04] MEDS: CHOLECALCIFEROL (VIT D3) 1,000 UNIT (25 MCG) TABLET PO SCH (09:44)
[2018-12-04] MEDS: HYDROCORTISONE SOD SUCCINATE 100 MG/2 ML VIAL IVPB SCH (09:44)
[2018-12-04] MEDS: ISOSORBIDE MONONITRATE 30 MG TAB.SR.24H (FP) PO SCH ×2 (09:44→22:59)
[2018-12-04] MEDS: METOPROLOL TARTRATE 25 MG TABLET (FP) PO SCH ×2 (09:44→22:59)
[2018-12-04] MEDS: TAMSULOSIN HCL 0.4 MG CAP PO SCH (09:44)
[2018-12-04] MEDS: BRIMONIDINE TARTRATE 0.15% OPHTHALMIC 5 ML BOTTLE OU SCH ×2 (09:46→23:01)
[2018-12-04] MEDS: FUROSEMIDE 40 MG TABLET (FP) PO SCH (09:51)
--- NOTE | 2018-12-04 10:01 | PN ---
Progress Note (short form) - Note Progress Note: Renal follow up for CKD Seen and examined at the bedside awake and alert feels well Blood sugars have been > 100 on IVF with dextrose making urine denies any sob or chest pain Vital Signs Temperature 98.1 F 12/04/18 05:00 Pulse Rate 61 12/04/18 05:00 Respiratory Rate 20 12/04/18 05:00 Blood Pressure 127/58 L 12/04/18 05:00 O2 Sat by Pulse Oximetry (%) 100 12/03/18 21:00 Intake & Output 12/01/18 12/02/18 12/03/18 12/04/18 23:59 23:59 23:59 23:59 Intake Total 200 2400 660 500 Output Total 400 800 Balance 200 2000 660 -300 Weight 74.843 kg 76.748 kg 77.836 kg NAD RRR CTA no LE edema CBC, BMP 12/03/18 07:20 12/04/18 06:25 Current Medications Aspirin (Asa -) 81 mg PO DAILY [facility] Last Admin: 12/04/18 09:43 Dose: 81 mg Atorvastatin Calcium (Lipitor -) 40 mg PO HS [facility] Last Admin: 12/03/18 22:19 Dose: 40 mg Brimonidine Tartrate (Alphagan 0.15% -) 1 drop OU BID [facility] Last Admin: 12/04/18 09:46 Dose: 1 drop Cholecalciferol (Vitamin D3 -) 2,000 unit PO DAILY [facility] Last Admin: 12/04/18 09:44 Dose: 2,000 unit Clopidogrel Bisulfate (Plavix -) 75 mg PO DAILY [facility] Last Admin: 12/04/18 09:43 Dose: 75 mg Dextrose (D50w (Vial) -) 25 gm IVPUSH Q4H PRN PRN Reason: HYPOGLYCEMIA Diltiazem HCl (Cardizem Cd -) 120 mg PO DAILY [facility] Last Admin: 12/04/18 09:43 Dose: 120 mg Dorzolamide HCl (Trusopt 2%) 1 drop OU BID [facility] Last Admin: 12/03/18 22:18 Dose: Not Given Furosemide (Lasix -) 80 mg PO DAILY [facility] Last Admin: 12/04/18 09:51 Dose: 80 mg Heparin Sodium (Porcine) (Heparin -) 5,000 unit SQ BID [facility] Last Admin: 12/04/18 09:44 Dose: 5,000 unit Hydralazine HCl (Apresoline -) 25 mg PO BID [facility] Last Admin: 12/04/18 09:44 Dose: 25 mg Hydrocortisone Sodium Succinate (Solu-Cortef -) 100 mg IVPB BID [facility] Last Admin: 12/04/18 09:44 Dose: 100 mg Isosorbide Mononitrate (Imdur -) 30 mg PO BID [facility] Last Admin: 12/04/18 09:44 Dose: 30 mg Latanoprost (Xalatan 0.005% Eye Drops -) 1 drop OU HS [facility] Last Admin: 12/03/18 22:27 Dose: 1 drop Metoprolol Tartrate (Lopressor -) 25 mg PO BID [facility] Last Admin: 12/04/18 09:44 Dose: 25 mg Non-Formulary Medication (Vitamin A/Vitamin D2 [[place] Cod Liver Oil Sfgl]) 1 each PO DAILY [facility] Tamsulosin HCl (Flomax -) 0.4 mg PO DAILY@0830 [facility] Last Admin: 12/04/18 09:44 Dose: 0.4 mg Timolol Maleate (Timoptic 0.5%) 1 drop OU BID [facility] Last Admin: 12/03/18 22:18 Dose: Not Given 83 year old gentleman with history of CKD stage 4 (baseline Cr 2.8-3), CAD, hypertension, BPH who presented from home with complaints of chest pain and noted to have hypoglycemia and Cr of 3.9. Cr now improved to 3.1. 1. CKD stage 4 2. Hypoglycemia 3. Chest pain r/o ACS 4. Hypertnsion 5. BPH 6. Chronic anemia Renal function stable and at baseline no acute need for dialysis would continue daily PO Laisx for edema management no HEENA/ARB given low eGFR d/c IVF now and monitor blood glucose levels on oral intake alone Endocrine follow up Continue Hydrazline, diltiazem for hypertension. Bp is at goal today. continue Fomax follow up iron studies, he may benefit from ANA MARÍA +/- Iron Thank you will follow Carlos Acevedo DO
--- NOTE | 2018-12-04 16:56 | PN ---
Progress Note, Physician Chief Complaint: Hypoglycemia History of Present Illness: 83 year old male patient with a history of HLD, CAD, S/p stents is admittied for hypoglycemia with dizziness, pt in no distress sitting in chair. - Current Medication List Current Medications: Active Medications Aspirin (Asa -) 81 mg PO DAILY [facility] Last Admin: 12/04/18 09:43 Dose: 81 mg Atorvastatin Calcium (Lipitor -) 40 mg PO HS [facility] Last Admin: 12/03/18 22:19 Dose: 40 mg Brimonidine Tartrate (Alphagan 0.15% -) 1 drop OU BID [facility] Last Admin: 12/04/18 09:46 Dose: 1 drop Cholecalciferol (Vitamin D3 -) 2,000 unit PO DAILY [facility] Last Admin: 12/04/18 09:44 Dose: 2,000 unit Clopidogrel Bisulfate (Plavix -) 75 mg PO DAILY [facility] Last Admin: 12/04/18 09:43 Dose: 75 mg Dextrose (D50w (Vial) -) 25 gm IVPUSH Q4H PRN PRN Reason: HYPOGLYCEMIA Diltiazem HCl (Cardizem Cd -) 120 mg PO DAILY [facility] Last Admin: 12/04/18 09:43 Dose: 120 mg Dorzolamide HCl (Trusopt 2%) 1 drop OU BID [facility] Last Admin: 12/03/18 22:18 Dose: Not Given Furosemide (Lasix -) 80 mg PO DAILY [facility] Last Admin: 12/04/18 09:51 Dose: 80 mg Heparin Sodium (Porcine) (Heparin -) 5,000 unit SQ BID [facility] Last Admin: 12/04/18 09:44 Dose: 5,000 unit Hydralazine HCl (Apresoline -) 25 mg PO BID [facility] Last Admin: 12/04/18 09:44 Dose: 25 mg Hydrocortisone Sodium Succinate (Solu-Cortef -) 50 mg IVPB DAILY [facility] Isosorbide Mononitrate (Imdur -) 30 mg PO BID [facility] Last Admin: 12/04/18 09:44 Dose: 30 mg Latanoprost (Xalatan 0.005% Eye Drops -) 1 drop OU HS [facility] Last Admin: 12/03/18 22:27 Dose: 1 drop Metoprolol Tartrate (Lopressor -) 25 mg PO BID [facility] Last Admin: 12/04/18 09:44 Dose: 25 mg Tamsulosin HCl (Flomax -) 0.4 mg PO DAILY@0830 [facility] Last Admin: 12/04/18 09:44 Dose: 0.4 mg Timolol Maleate (Timoptic 0.5%) 1 drop OU BID [facility] Last Admin: 12/03/18 22:18 Dose: Not Given - Objective Vital Signs: Vital Signs Temperature 98.3 F 12/04/18 09:00 Pulse Rate 72 12/04/18 09:00 Respiratory Rate 18 12/04/18 09:00 Blood Pressure 127/64 12/04/18 09:00 O2 Sat by Pulse Oximetry (%) 100 12/04/18 09:00 Constitutional: Yes: Well Nourished, No Distress, Calm Cardiovascular: Yes: Regular Rate and Rhythm Respiratory: Yes: Regular Gastrointestinal: Yes: Normal Bowel Sounds, Soft Genitourinary: Yes: WNL Musculoskeletal: Yes: WNL Extremities: Yes: WNL Edema: No Peripheral Pulses WNL: Yes Neurological: Yes: Alert, Oriented Psychiatric: Yes: Alert, Oriented Labs: CBC, BMP 12/03/18 07:20 12/04/18 06:25 INR, PTT INR 0.99 (0.83-1.09) 12/01/18 11:54 Assessment/Plan (1) Hypoglycemia Assessment/Plan: -Improved -Endocrinology onboard -Solucortef qbeing tapered -sulfanoylurea screen proinsulin pending Code(s): E16.2 - HYPOGLYCEMIA, UNSPECIFIED (2) Chest pain Assessment/Plan: -seen by cardiology -Continue aspirin ,statin and plavix Code(s): R07.9 - CHEST PAIN, UNSPECIFIED Qualifiers: Chest pain type: unspecified Qualified Code(s): R07.9 - Chest pain, unspecified (3) CKD (chronic kidney disease) Assessment/Plan: -Nephrology on board Code(s): N18.9 - CHRONIC KIDNEY DISEASE, UNSPECIFIED Qualifiers: Chronic kidney disease stage: stage 4 (severe) Qualified Code(s): N18.4 - Chronic kidney disease, stage 4 (severe) (4) Hypomagnesemia Assessment/Plan: -Resolved Code(s): E83.42 - HYPOMAGNESEMIA
--- NOTE | 2018-12-04 17:11 | PN ---
Progress Note, Physician Chief Complaint: Hypoglycemia History of Present Illness: 83 year old male patient with a history of HLD, CAD, S/p stents is admittied for hypoglycemia with dizziness, pt in no distress sitting in chair. - Current Medication List Current Medications: Active Medications Aspirin (Asa -) 81 mg PO DAILY [facility] Last Admin: 12/04/18 09:43 Dose: 81 mg Atorvastatin Calcium (Lipitor -) 40 mg PO HS [facility] Last Admin: 12/03/18 22:19 Dose: 40 mg Brimonidine Tartrate (Alphagan 0.15% -) 1 drop OU BID [facility] Last Admin: 12/04/18 09:46 Dose: 1 drop Cholecalciferol (Vitamin D3 -) 2,000 unit PO DAILY [facility] Last Admin: 12/04/18 09:44 Dose: 2,000 unit Clopidogrel Bisulfate (Plavix -) 75 mg PO DAILY [facility] Last Admin: 12/04/18 09:43 Dose: 75 mg Dextrose (D50w (Vial) -) 25 gm IVPUSH Q4H PRN PRN Reason: HYPOGLYCEMIA Diltiazem HCl (Cardizem Cd -) 120 mg PO DAILY [facility] Last Admin: 12/04/18 09:43 Dose: 120 mg Dorzolamide HCl (Trusopt 2%) 1 drop OU BID [facility] Last Admin: 12/03/18 22:18 Dose: Not Given Furosemide (Lasix -) 80 mg PO DAILY [facility] Last Admin: 12/04/18 09:51 Dose: 80 mg Heparin Sodium (Porcine) (Heparin -) 5,000 unit SQ BID [facility] Last Admin: 12/04/18 09:44 Dose: 5,000 unit Hydralazine HCl (Apresoline -) 25 mg PO BID [facility] Last Admin: 12/04/18 09:44 Dose: 25 mg Hydrocortisone Sodium Succinate (Solu-Cortef -) 50 mg IVPB DAILY [facility] Isosorbide Mononitrate (Imdur -) 30 mg PO BID [facility] Last Admin: 12/04/18 09:44 Dose: 30 mg Latanoprost (Xalatan 0.005% Eye Drops -) 1 drop OU HS [facility] Last Admin: 12/03/18 22:27 Dose: 1 drop Metoprolol Tartrate (Lopressor -) 25 mg PO BID [facility] Last Admin: 12/04/18 09:44 Dose: 25 mg Tamsulosin HCl (Flomax -) 0.4 mg PO DAILY@0830 [facility] Last Admin: 12/04/18 09:44 Dose: 0.4 mg Timolol Maleate (Timoptic 0.5%) 1 drop OU BID [facility] Last Admin: 12/03/18 22:18 Dose: Not Given - Objective Vital Signs: Vital Signs Temperature 98.3 F 12/04/18 09:00 Pulse Rate 72 12/04/18 09:00 Respiratory Rate 18 12/04/18 09:00 Blood Pressure 127/64 12/04/18 09:00 O2 Sat by Pulse Oximetry (%) 100 12/04/18 09:00 Labs: CBC, BMP 12/03/18 07:20 12/04/18 06:25 INR, PTT INR 0.99 (0.83-1.09) 12/01/18 11:54
--- NOTE | 2018-12-04 21:39 | PN ---
Progress Note, Physician Chief Complaint: sugars are stable no further hypoglycemia,appetite better - Current Medication List Current Medications: Active Medications Aspirin (Asa -) 81 mg PO DAILY [facility] Last Admin: 12/04/18 09:43 Dose: 81 mg Atorvastatin Calcium (Lipitor -) 40 mg PO HS [facility] Last Admin: 12/03/18 22:19 Dose: 40 mg Brimonidine Tartrate (Alphagan 0.15% -) 1 drop OU BID [facility] Last Admin: 12/04/18 09:46 Dose: 1 drop Cholecalciferol (Vitamin D3 -) 2,000 unit PO DAILY [facility] Last Admin: 12/04/18 09:44 Dose: 2,000 unit Clopidogrel Bisulfate (Plavix -) 75 mg PO DAILY [facility] Last Admin: 12/04/18 09:43 Dose: 75 mg Dextrose (D50w (Vial) -) 25 gm IVPUSH Q4H PRN PRN Reason: HYPOGLYCEMIA Diltiazem HCl (Cardizem Cd -) 120 mg PO DAILY [facility] Last Admin: 12/04/18 09:43 Dose: 120 mg Dorzolamide HCl (Trusopt 2%) 1 drop OU BID [facility] Last Admin: 12/03/18 22:18 Dose: Not Given Furosemide (Lasix -) 80 mg PO DAILY [facility] Last Admin: 12/04/18 09:51 Dose: 80 mg Heparin Sodium (Porcine) (Heparin -) 5,000 unit SQ BID [facility] Last Admin: 12/04/18 09:44 Dose: 5,000 unit Hydralazine HCl (Apresoline -) 25 mg PO BID [facility] Last Admin: 12/04/18 09:44 Dose: 25 mg Hydrocortisone Sodium Succinate (Solu-Cortef -) 50 mg IVPB ONCE ONE Stop: 12/05/18 07:01 Isosorbide Mononitrate (Imdur -) 30 mg PO BID [facility] Last Admin: 12/04/18 09:44 Dose: 30 mg Latanoprost (Xalatan 0.005% Eye Drops -) 1 drop OU HS [facility] Last Admin: 12/03/18 22:27 Dose: 1 drop Metoprolol Tartrate (Lopressor -) 25 mg PO BID [facility] Last Admin: 12/04/18 09:44 Dose: 25 mg Tamsulosin HCl (Flomax -) 0.4 mg PO DAILY@0830 [facility] Last Admin: 12/04/18 09:44 Dose: 0.4 mg Timolol Maleate (Timoptic 0.5%) 1 drop OU BID [facility] Last Admin: 12/03/18 22:18 Dose: Not Given - Objective Vital Signs: Vital Signs Temperature 98.2 F 12/04/18 17:17 Pulse Rate 73 12/04/18 17:17 Respiratory Rate 18 12/04/18 17:17 Blood Pressure 116/58 L 12/04/18 17:17 O2 Sat by Pulse Oximetry (%) 100 12/04/18 09:00 Constitutional: Yes: Anxious Eyes: Yes: EOM Intact HENT: Yes: Normocephalic Neck: Yes: Trachea Midline Cardiovascular: Yes: Regular Rate and Rhythm Respiratory: Yes: CTA Bilaterally Gastrointestinal: Yes: Normal Bowel Sounds ...Rectal Exam: Yes: Deferred Breast(s): Yes: WNL Musculoskeletal: Yes: WNL Extremities: Yes: WNL Edema: No Peripheral Pulses WNL: Yes Neurological: Yes: Alert, Oriented Psychiatric: Yes: Alert, Oriented Labs: CBC, BMP 12/03/18 07:20 12/04/18 06:25 INR, PTT INR 0.99 (0.83-1.09) 12/01/18 11:54 Problem List - Problems (1) Hypoglycemia Code(s): E16.2 - HYPOGLYCEMIA, UNSPECIFIED (2) Acute renal failure Code(s): N17.9 - ACUTE KIDNEY FAILURE, UNSPECIFIED Qualifiers: Acute renal failure type: with acute renal cortical necrosis Qualified Code (s): N17.1 - Acute kidney failure with acute cortical necrosis (3) CKD (chronic kidney disease) Code(s): N18.9 - CHRONIC KIDNEY DISEASE, UNSPECIFIED Qualifiers: Chronic kidney disease stage: stage 4 (severe) Qualified Code(s): N18.4 - Chronic kidney disease, stage 4 (severe) (4) Chest pain, rule out acute myocardial infarction Code(s): R07.9 - CHEST PAIN, UNSPECIFIED Assessment/Plan Current Active Problems Chest pain (Acute) Dizziness (Acute) Hypoglycemia (Acute) Hypomagnesemia (Acute) Abnormal Lab Results 12/04/18 06:25 BUN 65.2 H Creatinine 3.3 H Random Glucose 144 H Calcium 8.1 L AST 13 L ALT 11 L Total Protein 5.7 L Albumin 2.8 L Laboratory Tests 12/02/18 12/02/18 07:16 10:00 Random Glucose 61 L Insulin Level 45.7 H plan: continue solucortef 50mg idose then dc will need monitoring blood sugars till sugars remain normal await proinsulin level
[2018-12-04] MEDS: ATORVASTATIN CA 40 MG TABLET (FP) PO SCH (22:59)
[2018-12-04] MEDS: LATANOPROST 0.005% OPHTH SOLN 2.5ML BOTTLE OU SCH (23:00)
[2018-12-04] MEDS: DORZOLAMIDE 2% HCL OPHTHALMIC SOLUTION 10 ML BOTTLE OU SCH (23:04)
[2018-12-04] MEDS: TIMOLOL 0.5% OPHTHALMIC SOL 5 ML BOTTLE OU SCH (23:05)
[2018-12-05] MEDS ORDERED: HYDROCORTISONE SOD SUCCINATE 100 MG/2 ML VIAL IVPB ONE (07:00)
[2018-12-05] MEDS: TAMSULOSIN HCL 0.4 MG CAP PO SCH (09:31)
--- NOTE | 2018-12-05 09:59 | PN ---
Progress Note, Physician Chief Complaint: TELE: NSR, rare VPC Denies CP, SOB. Endo input noted. Proinsulin levels pending. History of Present Illness: BP normal and stable. - Current Medication List Current Medications: Active Medications Aspirin (Asa -) 81 mg PO DAILY [facility] Last Admin: 12/04/18 09:43 Dose: 81 mg Atorvastatin Calcium (Lipitor -) 40 mg PO HS [facility] Last Admin: 12/04/18 22:59 Dose: 40 mg Brimonidine Tartrate (Alphagan 0.15% -) 1 drop OU BID [facility] Last Admin: 12/04/18 23:01 Dose: 1 drop Cholecalciferol (Vitamin D3 -) 2,000 unit PO DAILY [facility] Last Admin: 12/04/18 09:44 Dose: 2,000 unit Clopidogrel Bisulfate (Plavix -) 75 mg PO DAILY [facility] Last Admin: 12/04/18 09:43 Dose: 75 mg Dextrose (D50w (Vial) -) 25 gm IVPUSH Q4H PRN PRN Reason: HYPOGLYCEMIA Diltiazem HCl (Cardizem Cd -) 120 mg PO DAILY [facility] Last Admin: 12/04/18 09:43 Dose: 120 mg Dorzolamide HCl (Trusopt 2%) 1 drop OU BID [facility] Last Admin: 12/04/18 23:04 Dose: Not Given Furosemide (Lasix -) 80 mg PO DAILY [facility] Last Admin: 12/04/18 09:51 Dose: 80 mg Heparin Sodium (Porcine) (Heparin -) 5,000 unit SQ BID [facility] Last Admin: 12/04/18 23:02 Dose: 5,000 unit Hydralazine HCl (Apresoline -) 25 mg PO BID [facility] Last Admin: 12/04/18 22:59 Dose: 25 mg Isosorbide Mononitrate (Imdur -) 30 mg PO BID [facility] Last Admin: 12/04/18 22:59 Dose: 30 mg Latanoprost (Xalatan 0.005% Eye Drops -) 1 drop OU HS [facility] Last Admin: 12/04/18 23:00 Dose: 1 drop Metoprolol Tartrate (Lopressor -) 25 mg PO BID [facility] Last Admin: 12/04/18 22:59 Dose: 25 mg Tamsulosin HCl (Flomax -) 0.4 mg PO DAILY@0830 [facility] Last Admin: 12/04/18 09:44 Dose: 0.4 mg Timolol Maleate (Timoptic 0.5%) 1 drop OU BID [facility] Last Admin: 12/04/18 23:05 Dose: Not Given - Objective Vital Signs: Vital Signs Temperature 98 F 12/05/18 09:00 Pulse Rate 75 12/05/18 09:00 Respiratory Rate 18 12/05/18 09:00 Blood Pressure 122/60 12/05/18 09:00 O2 Sat by Pulse Oximetry (%) 99 12/04/18 21:00 Constitutional: Yes: Calm Cardiovascular: Yes: Regular Rate and Rhythm Respiratory: Yes: CTA Bilaterally Gastrointestinal: Yes: Soft Edema: No Neurological: Yes: Alert, Oriented ...Motor Strength: WNL Labs: CBC, BMP 12/03/18 07:20 12/04/18 06:25 INR, PTT INR 0.99 (0.83-1.09) 12/01/18 11:54 - ....Imaging EKG: Image Reviewed Assessment/Plan DATA: EKG: sinus, 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 Chest pain, h/o CAD, +trops: - here with mild trop elevation, nl ck. ecg w/o ischemic changes. Seems to be demand ischemia 2/2 multiple episodes of hypoglycemia. Enzymes flat, no arrhythmias on tele. Echo normal LVEF - mibi unremarkable 04/2018 - cont aspirin, statin, plavix, imdur, bb - during prior admit 04/2018 with mild trop elevation as well and had unremarkable mibi then and pt was not interested in cath due to risk of WILLIE and need for HD. Will continue with med rx for now unless clinical picture seems more like acs: and he has remained chest pain free with flat TnI. Thus, previous plan for medical therapy seems most appropriate HTN -cont home meds CKD -cr stable Hypoglycemia -Improved, work up as per Endocrine
[2018-12-05] MEDS ORDERED: HYDROCORTISONE SOD SUCCINATE 100 MG/2 ML VIAL IVPB SCH (10:00)
[2018-12-05] MEDS: DORZOLAMIDE 2% HCL OPHTHALMIC SOLUTION 10 ML BOTTLE OU SCH ×2 (10:28→21:48)
[2018-12-05] MEDS: TIMOLOL 0.5% OPHTHALMIC SOL 5 ML BOTTLE OU SCH ×2 (10:28→21:48)
[2018-12-05] MEDS: hydrALAZINE HCL 25 MG TABLET (FP) PO SCH ×2 (10:32→21:47)
[2018-12-05] MEDS: BRIMONIDINE TARTRATE 0.15% OPHTHALMIC 5 ML BOTTLE OU SCH ×2 (10:32→21:48)
[2018-12-05] MEDS: FUROSEMIDE 40 MG TABLET (FP) PO SCH (10:32)
[2018-12-05] MEDS: HEPARIN NA (PORCINE) 5,000 UNITS/ML 1ML VIAL SQ SCH ×2 (10:32→21:47)
[2018-12-05] MEDS: ASPIRIN 81 MG CHEWABLE TABLETS PO SCH (10:32)
[2018-12-05] MEDS: ISOSORBIDE MONONITRATE 30 MG TAB.SR.24H (FP) PO SCH ×2 (10:32→21:47)
[2018-12-05] MEDS: METOPROLOL TARTRATE 25 MG TABLET (FP) PO SCH ×2 (10:33→21:47)
[2018-12-05] MEDS: CLOPIDOGREL BISULFATE 75 MG TABLET (FP) PO SCH (10:33)
[2018-12-05] MEDS: CHOLECALCIFEROL (VIT D3) 1,000 UNIT (25 MCG) TABLET PO SCH (10:33)
[2018-12-05] MEDS: LATANOPROST 0.005% OPHTH SOLN 2.5ML BOTTLE OU SCH (21:47)
[2018-12-05] MEDS: ATORVASTATIN CA 40 MG TABLET (FP) PO SCH (21:47)
[2018-12-06 07:14] LABS: BLOOD UREA NITROGEN 83.8 mg/dL (7-18); CREATININE 3.7 mg/dL (0.55-1.3); POTASSIUM 3.9 mmol/L (3.5-5.1)
[2018-12-06] MEDS: TIMOLOL 0.5% OPHTHALMIC SOL 5 ML BOTTLE OU SCH (10:00)
[2018-12-06] MEDS: TAMSULOSIN HCL 0.4 MG CAP PO SCH (10:01)
[2018-12-06] MEDS: DORZOLAMIDE 2% HCL OPHTHALMIC SOLUTION 10 ML BOTTLE OU SCH (10:01)
[2018-12-06] MEDS: BRIMONIDINE TARTRATE 0.15% OPHTHALMIC 5 ML BOTTLE OU SCH (10:02)
[2018-12-06] MEDS: ASPIRIN 81 MG CHEWABLE TABLETS PO SCH (10:02)
[2018-12-06] MEDS: hydrALAZINE HCL 25 MG TABLET (FP) PO SCH (10:02)
[2018-12-06] MEDS: HEPARIN NA (PORCINE) 5,000 UNITS/ML 1ML VIAL SQ SCH (10:03)
[2018-12-06] MEDS: CHOLECALCIFEROL (VIT D3) 1,000 UNIT (25 MCG) TABLET PO SCH (10:03)
[2018-12-06] MEDS: ISOSORBIDE MONONITRATE 30 MG TAB.SR.24H (FP) PO SCH (10:03)
[2018-12-06] MEDS: METOPROLOL TARTRATE 25 MG TABLET (FP) PO SCH (10:03)
[2018-12-06] MEDS: FUROSEMIDE 40 MG TABLET (FP) PO SCH (10:03)
[2018-12-06] MEDS: CLOPIDOGREL BISULFATE 75 MG TABLET (FP) PO SCH (10:03)
--- NOTE | 2018-12-06 12:25 | PN ---
Progress Note, Physician Chief Complaint: patient seen and examined came back from ultrasound - Current Medication List Current Medications: Active Medications Aspirin (Asa -) 81 mg PO DAILY [facility] Last Admin: 12/06/18 10:02 Dose: 81 mg Atorvastatin Calcium (Lipitor -) 40 mg PO HS [facility] Last Admin: 12/05/18 21:47 Dose: 40 mg Brimonidine Tartrate (Alphagan 0.15% -) 1 drop OU BID [facility] Last Admin: 12/06/18 10:02 Dose: 1 drop Cholecalciferol (Vitamin D3 -) 2,000 unit PO DAILY [facility] Last Admin: 12/06/18 10:03 Dose: 2,000 unit Clopidogrel Bisulfate (Plavix -) 75 mg PO DAILY [facility] Last Admin: 12/06/18 10:03 Dose: 75 mg Dextrose (D50w (Vial) -) 25 gm IVPUSH Q4H PRN PRN Reason: HYPOGLYCEMIA Diltiazem HCl (Cardizem Cd -) 120 mg PO DAILY [facility] Last Admin: 12/06/18 10:02 Dose: 120 mg Dorzolamide HCl (Trusopt 2%) 1 drop OU BID [facility] Last Admin: 12/06/18 10:01 Dose: Not Given Furosemide (Lasix -) 80 mg PO DAILY [facility] Last Admin: 12/06/18 10:03 Dose: 80 mg Heparin Sodium (Porcine) (Heparin -) 5,000 unit SQ BID [facility] Last Admin: 12/06/18 10:03 Dose: 5,000 unit Hydralazine HCl (Apresoline -) 25 mg PO BID [facility] Last Admin: 12/06/18 10:02 Dose: 25 mg Isosorbide Mononitrate (Imdur -) 30 mg PO BID [facility] Last Admin: 12/06/18 10:03 Dose: 30 mg Latanoprost (Xalatan 0.005% Eye Drops -) 1 drop OU HS [facility] Last Admin: 12/05/18 21:47 Dose: 1 drop Metoprolol Tartrate (Lopressor -) 25 mg PO BID [facility] Last Admin: 12/06/18 10:03 Dose: 25 mg Tamsulosin HCl (Flomax -) 0.4 mg PO DAILY@0830 [facility] Last Admin: 12/06/18 10:01 Dose: 0.4 mg Timolol Maleate (Timoptic 0.5%) 1 drop OU BID [facility] Last Admin: 12/06/18 10:00 Dose: Not Given - Objective Vital Signs: Vital Signs Temperature 98.2 F 12/06/18 09:58 Pulse Rate 73 12/06/18 09:58 Respiratory Rate 18 12/06/18 09:58 Blood Pressure 144/64 12/06/18 09:58 O2 Sat by Pulse Oximetry (%) 99 12/05/18 21:00 Constitutional: Yes: Calm Cardiovascular: Yes: Regular Rate and Rhythm, S1, S2 Respiratory: Yes: CTA Bilaterally Gastrointestinal: Yes: Normal Bowel Sounds, Soft Neurological: Yes: Alert, Oriented Labs: CBC, BMP 12/03/18 07:20 12/06/18 06:15 INR, PTT INR 0.99 (0.83-1.09) 12/01/18 11:54 Problem List - Problems (1) Chest pain Assessment/Plan: seen by cardiology same medications aspirin ,statin and plavix Code(s): R07.9 - CHEST PAIN, UNSPECIFIED Qualifiers: Chest pain type: unspecified Qualified Code(s): R07.9 - Chest pain, unspecified (2) Hypoglycemia Assessment/Plan: stop ivf awaiting proinsulin level endocrine on board bgm ok Code(s): E16.2 - HYPOGLYCEMIA, UNSPECIFIED (3) CKD (chronic kidney disease) Assessment/Plan: renal sono done shows right renal mass urology consult Code(s): N18.9 - CHRONIC KIDNEY DISEASE, UNSPECIFIED Qualifiers: Chronic kidney disease stage: stage 4 (severe) Qualified Code(s): N18.4 - Chronic kidney disease, stage 4 (severe) (4) Hypomagnesemia Assessment/Plan: iv magnesium given resolved now normal Code(s): E83.42 - HYPOMAGNESEMIA
--- NOTE | 2018-12-06 13:04 | PN ---
Progress Note (short form) - Note Progress Note: Renal follow up for CKD Seen and examined at the bedside has no acute complaints denies any sob, cp, abd pain, fever or chills making urine appetite is preserved Vital Signs Temperature 98.2 F 12/06/18 09:58 Pulse Rate 73 12/06/18 09:58 Respiratory Rate 18 12/06/18 09:58 Blood Pressure 144/64 12/06/18 09:58 O2 Sat by Pulse Oximetry (%) 100 12/06/18 09:00 Intake & Output 12/03/18 12/04/18 12/05/18 12/06/18 23:59 23:59 23:59 23:59 Intake Total 660 1548 1020 490 Output Total 1650 900 Balance 660 -102 120 490 Weight 76.748 kg 77.836 kg 77.564 kg 77.836 kg NAD RRR CTA no LE edema CBC, BMP 12/03/18 07:20 12/06/18 06:15 Current Medications Aspirin (Asa -) 81 mg PO DAILY [facility] Last Admin: 12/06/18 10:02 Dose: 81 mg Atorvastatin Calcium (Lipitor -) 40 mg PO HS [facility] Last Admin: 12/05/18 21:47 Dose: 40 mg Brimonidine Tartrate (Alphagan 0.15% -) 1 drop OU BID [facility] Last Admin: 12/06/18 10:02 Dose: 1 drop Cholecalciferol (Vitamin D3 -) 2,000 unit PO DAILY [facility] Last Admin: 12/06/18 10:03 Dose: 2,000 unit Clopidogrel Bisulfate (Plavix -) 75 mg PO DAILY [facility] Last Admin: 12/06/18 10:03 Dose: 75 mg Dextrose (D50w (Vial) -) 25 gm IVPUSH Q4H PRN PRN Reason: HYPOGLYCEMIA Diltiazem HCl (Cardizem Cd -) 120 mg PO DAILY [facility] Last Admin: 12/06/18 10:02 Dose: 120 mg Dorzolamide HCl (Trusopt 2%) 1 drop OU BID [facility] Last Admin: 12/06/18 10:01 Dose: Not Given Furosemide (Lasix -) 80 mg PO DAILY [facility] Last Admin: 12/06/18 10:03 Dose: 80 mg Heparin Sodium (Porcine) (Heparin -) 5,000 unit SQ BID [facility] Last Admin: 12/06/18 10:03 Dose: 5,000 unit Hydralazine HCl (Apresoline -) 25 mg PO BID [facility] Last Admin: 12/06/18 10:02 Dose: 25 mg Isosorbide Mononitrate (Imdur -) 30 mg PO BID [facility] Last Admin: 12/06/18 10:03 Dose: 30 mg Latanoprost (Xalatan 0.005% Eye Drops -) 1 drop OU HS [facility] Last Admin: 12/05/18 21:47 Dose: 1 drop Metoprolol Tartrate (Lopressor -) 25 mg PO BID [facility] Last Admin: 12/06/18 10:03 Dose: 25 mg Tamsulosin HCl (Flomax -) 0.4 mg PO DAILY@0830 [facility] Last Admin: 12/06/18 10:01 Dose: 0.4 mg Timolol Maleate (Timoptic 0.5%) 1 drop OU BID [facility] Last Admin: 12/06/18 10:00 Dose: Not Given 83 year old gentleman with history of CKD stage 4 (baseline Cr 2.8-3), CAD, hypertension, BPH who presented from home with complaints of chest pain and noted to have hypoglycemia and Cr of 3.9. Cr now improved to 3.1. 1. CKD stage 4 2. Hypoglycemia 3. Chest pain r/o ACS 4. Hypertnsion 5. BPH 6. Chronic anemia 7. Renal Mass Renal function is stable no acute need for dialysis would continue daily PO Laisx for edema management no HEENA/ARB given low eGFR Continue Hydrazline, diltiazem for hypertension. Bp is at goal today. continue Flomax Noted that pt has had renal mass back on imaging studies dating back to 2016. Pt is not aware of any urologic evaluation in the past. Will check our office records. Carlos Acevedo DO
[2018-12-06 14:52] VITALS: BP 138/66; PULSE 71; TEMP 98.6
--- NOTE | 2018-12-06 14:58 | DS ---
Physical Examination Vital Signs: Vital Signs Temperature 98.6 F 12/06/18 14:00 Pulse Rate 71 12/06/18 14:00 Respiratory Rate 20 12/06/18 14:00 Blood Pressure 138/66 12/06/18 14:00 O2 Sat by Pulse Oximetry (%) 100 12/06/18 09:00 Constitutional: Yes: Calm Cardiovascular: Yes: Regular Rate and Rhythm, S1, S2 Respiratory: Yes: CTA Bilaterally Gastrointestinal: Yes: Normal Bowel Sounds, Soft Psychiatric: Yes: Alert, Oriented Labs: CBC, BMP 12/03/18 07:20 12/06/18 06:15 Discharge Summary Reason For Visit: HYPOGLYCEMIA, CHEST PAIN Current Active Problems Chest pain (Acute) Dizziness (Acute) Hypoglycemia (Acute) Hypomagnesemia (Acute) Hospital Course: - Primary Care Physician PCP: Poncho Shea MD - Admission Chief Complaint: Chest pain and dizziness History of Present Illness: Patient is an 83 y/o male with past medical history of HTN, HLD, CAD s/p stent placement. Patient complain of intermittent mid chest pain and dizziness which began at 3am. Chest pain is non-radiating and not accompanied with SOB. He layed back down and states the chest pain and dizziness subsided. He would experience the chest pain and dizziness when he would stand up. While in ER noted with BS 27mg/dL, received dextrose 25g IVP and BS improved, patient denies hx of diabetes. patient got hypoglycemic work up done labs still pending on d10 drip then stopped renal mass seen on ultrasound was there in 2016 work up as outpatient with urology Condition: Stable - Instructions Referrals: Poncho Shea MD, MD [Primary Care Provider] - Daniel Guadalupe MD [Staff Physician] - 1 Week (for blood sugar) Disposition: HOME - Home Medications Comprehensive Discharge Medication List: Ambulatory Orders Aspirin [ASA -] 81 mg PO DAILY 01/10/14 Bimatoprost [Lumigan] 1 drop IO BID 01/10/14 Brimonidine Tartrate [Alphagan 0.15% -] 1 drop OU BID 01/10/14 Cholecalciferol (Vitamin D3) [Vitamin D3] 2,000 unit PO DAILY 01/10/14 Dorzolamide HCl/Timolol Maleat [Cosopt Eye Drops] 5 ml OP BID 01/10/14 Tamsulosin HCl 0.4 mg PO DAILY 01/10/14 Vitamin A/Vitamin D2 [[place]ij[place] Cod Liver Oil Sfgl] 1 each PO DAILY 01/10/14 Amlodipine Besylate [Norvasc -] 10 mg PO DAILY #30 tablet MDD 2 05/10/18 Clopidogrel Bisulfate [Plavix -] 75 mg PO DAILY #30 tablet MDD 1 05/10/18 Isosorbide Mononitrate [Imdur -] 30 mg PO BID #30 tab.sr.24h MDD 2 05/10/18 Metoprolol Tartrate [Lopressor -] 25 mg PO BID #30 tablet MDD 2 05/10/18 hydrALAZINE HCL [Apresoline -] 25 mg PO BID #30 tablet MDD 2 05/10/18 Diltiazem Cd [Cardizem Cd -] 120 mg PO DAILY #30 cap.cd.24h 10/27/18 Furosemide [Lasix -] 80 mg PO DAILY #30 tablet 10/27/18 Ferrous Sulfate, Dried [Iron] 159 mg PO DAILY 12/01/18
--- NOTE | 2018-12-06 15:25 | PN ---
Progress Note (short form) - Note Progress Note: No chest pain, palps, dizziness, dyspnea \Current Medications Aspirin (Asa -) 81 mg PO DAILY [facility] Last Admin: 12/06/18 10:02 Dose: 81 mg Atorvastatin Calcium (Lipitor -) 40 mg PO HS [facility] Last Admin: 12/05/18 21:47 Dose: 40 mg Brimonidine Tartrate (Alphagan 0.15% -) 1 drop OU BID [facility] Last Admin: 12/06/18 10:02 Dose: 1 drop Cholecalciferol (Vitamin D3 -) 2,000 unit PO DAILY [facility] Last Admin: 12/06/18 10:03 Dose: 2,000 unit Clopidogrel Bisulfate (Plavix -) 75 mg PO DAILY [facility] Last Admin: 12/06/18 10:03 Dose: 75 mg Dextrose (D50w (Vial) -) 25 gm IVPUSH Q4H PRN PRN Reason: HYPOGLYCEMIA Diltiazem HCl (Cardizem Cd -) 120 mg PO DAILY [facility] Last Admin: 12/06/18 10:02 Dose: 120 mg Dorzolamide HCl (Trusopt 2%) 1 drop OU BID [facility] Last Admin: 12/06/18 10:01 Dose: Not Given Furosemide (Lasix -) 80 mg PO DAILY [facility] Last Admin: 12/06/18 10:03 Dose: 80 mg Heparin Sodium (Porcine) (Heparin -) 5,000 unit SQ BID [facility] Last Admin: 12/06/18 10:03 Dose: 5,000 unit Hydralazine HCl (Apresoline -) 25 mg PO BID [facility] Last Admin: 12/06/18 10:02 Dose: 25 mg Isosorbide Mononitrate (Imdur -) 30 mg PO BID [facility] Last Admin: 12/06/18 10:03 Dose: 30 mg Latanoprost (Xalatan 0.005% Eye Drops -) 1 drop OU HS [facility] Last Admin: 12/05/18 21:47 Dose: 1 drop Metoprolol Tartrate (Lopressor -) 25 mg PO BID [facility] Last Admin: 12/06/18 10:03 Dose: 25 mg Tamsulosin HCl (Flomax -) 0.4 mg PO DAILY@0830 [facility] Last Admin: 12/06/18 10:01 Dose: 0.4 mg Timolol Maleate (Timoptic 0.5%) 1 drop OU BID [facility] Last Admin: 12/06/18 10:00 Dose: Not Given Vital Signs Period Temp Pulse Resp BP Sys/Stinson Pulse Ox Last 24 Hr 97.9 F-98.8 F 62-73 18-20 117-144/56-67 99-100 Constitutional: Yes: Calm Cardiovascular: Yes: Regular Rate and Rhythm Respiratory: Yes: CTA Bilaterally Gastrointestinal: Yes: Soft Edema: No Neurological: Yes: Alert, Oriented no jaundice, diaphoresis not agitated - ....Imaging EKG: Image Reviewed Assessment/Plan DATA: EKG: sinus, 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 Chest pain, h/o CAD, +trops: - here with mild trop elevation, nl ck. ecg w/o ischemic changes. Seems to be demand ischemia 2/2 multiple episodes of hypoglycemia. Enzymes flat, no arrhythmias on tele. Echo normal LVEF - mibi unremarkable 04/2018 - cont aspirin, statin, plavix, imdur, bb - during prior admit 04/2018 with mild trop elevation as well and had unremarkable mibi then and pt was not interested in cath due to risk of WILLIE and need for HD. - continue medical therapy, has remained chest pain free - stable for dc from cardiac perspective HTN -cont home meds CKD -cr stable Hypoglycemia -Improved, plan per Endocrine
--- NOTE | 2018-12-06 16:09 | CON.GU ---
Consult Consult Specialty:: Reason for Consultation:: R renal mass - History of Present Illness Chief Complaint: CP History of Present Illness: 83 y/o male with past medical history of HTN, HLD, CAD s/p stent placement. Patient complain of intermittent mid chest pain and dizziness which began at 3am. Chest pain is non-radiating and not accompanied with SOB. He layed back down and states the chest pain and dizziness subsided. He would experience the chest pain and dizziness when he would stand up. While in ER noted with BS 27mg /dL, received dextrose 25g IVP and BS improved, patient denies hx of diabetes. cons req for R renal mass seen on U/S - History Source History Provided By: Medical Record - Past Medical History Cardio/Vascular: Yes: CAD, HTN, Hyperlipdemia - Past Surgical History Past Surgical History: Yes: Stent - Alcohol/Substance Use Hx Alcohol Use: No - Smoking History Smoking history: Never smoked Have you smoked in the past 12 months: No Aproximately how many cigarettes per day: 0 - Social History ADL: Independent History of Recent Travel: No Home Medications - Allergies Allergies/Adverse Reactions: Allergies Allergy/AdvReac Type Severity Reaction Status Date / Time No Known Drug Allergies Allergy Verified 11/15/18 11:03 - Home Medications Home Medications: Ambulatory Orders Aspirin [ASA -] 81 mg PO DAILY 01/10/14 Bimatoprost [Lumigan] 1 drop IO BID 01/10/14 Brimonidine Tartrate [Alphagan 0.15% -] 1 drop OU BID 01/10/14 Cholecalciferol (Vitamin D3) [Vitamin D3] 2,000 unit PO DAILY 01/10/14 Dorzolamide HCl/Timolol Maleat [Cosopt Eye Drops] 5 ml OP BID 01/10/14 Tamsulosin HCl 0.4 mg PO DAILY 01/10/14 Vitamin A/Vitamin D2 [[place] Cod Liver Oil Sfgl] 1 each PO DAILY 01/10/14 Amlodipine Besylate [Norvasc -] 10 mg PO DAILY #30 tablet MDD 2 05/10/18 Clopidogrel Bisulfate [Plavix -] 75 mg PO DAILY #30 tablet MDD 1 05/10/18 Isosorbide Mononitrate [Imdur -] 30 mg PO BID #30 tab.sr.24h MDD 2 05/10/18 Metoprolol Tartrate [Lopressor -] 25 mg PO BID #30 tablet MDD 2 05/10/18 hydrALAZINE HCL [Apresoline -] 25 mg PO BID #30 tablet MDD 2 05/10/18 Diltiazem Cd [Cardizem Cd -] 120 mg PO DAILY #30 cap.cd.24h 10/27/18 Furosemide [Lasix -] 80 mg PO DAILY #30 tablet 10/27/18 Ferrous Sulfate, Dried [Iron] 159 mg PO DAILY 12/01/18 Review of Systems - Review of Systems Genitourinary: denies: Hematuria Physical Exam- Vital Signs: Vital Signs Temperature 98.6 F 12/06/18 14:00 Pulse Rate 71 12/06/18 14:00 Respiratory Rate 20 12/06/18 14:00 Blood Pressure 138/66 12/06/18 14:00 O2 Sat by Pulse Oximetry (%) 100 12/06/18 09:00 Gastrointestinal: Yes: WNL Renal/: Yes: WNL Kidneys: Yes: WNL Pelvis: Yes: WNL Testicles: Yes: WNL Scrotum: Yes: WNL Penis: Yes: WNL Prostate Exam: Yes: WNL Labs: CBC, BMP 12/03/18 07:20 12/06/18 06:15 Imaging - Results Ultrasound: Report Reviewed Problem List - Problems (1) Renal mass Assessment/Plan: this 1.8 cm mass is too small to bx. will obtain CTAP pre and post iv contrast in 6 mos if creat OK to see if size increases vs MRI abd Code(s): N28.89 - OTHER SPECIFIED DISORDERS OF KIDNEY AND URETER (2) CKD (chronic kidney disease) Code(s): N18.9 - CHRONIC KIDNEY DISEASE, UNSPECIFIED Qualifiers: Chronic kidney disease stage: stage 4 (severe) Qualified Code(s): N18.4 - Chronic kidney disease, stage 4 (severe)
[2018-12-13 16:22] LABS: ACETOHEXAMIDE negative; TOLAZAMIDE Negative
== END 2018-12-06 16:50 | disposition home or self-care (01) | DRG 641 ==
LOC: JER 11:13 → JERBED 15:06 → J4W 22:21
PROVIDERS: ADMIT Family Medicine; ATTEND Family Medicine
DX: E16.2 Hypoglycemia, unspecified (principal); N18.4 Chronic kidney disease, stage 4 (severe); I24.8 Other forms of acute ischemic heart disease; N17.9 Acute kidney failure, unspecified; R07.89 Other chest pain; I12.9 Hypertensive chronic kidney disease with stage 1 through stage 4 chronic kidney disease, or unspecified chronic kidney disease; I25.10 Atherosclerotic heart disease of native coronary artery without angina pectoris; N40.0 Benign prostatic hyperplasia without lower urinary tract symptoms; E78.00 Pure hypercholesterolemia, unspecified; D64.9 Anemia, unspecified; I45.10 Unspecified right bundle-branch block; N28.89 Other specified disorders of kidney and ureter; E83.42 Hypomagnesemia; Z95.5 Presence of coronary angioplasty implant and graft
CPT/HCPCS: 36415; 70450-TC; 71045-TC-FY; 73560-TC-LT-FY; 76700-TC; 80048; 80053; 80061; 80299; 82533; 82550; 82553; 82728; 82943; 82947; 82962; 83036; 83525; 83540; 83550; 83721; 83735; 83880; 84100; 84436; 84443; 84484; 85025; 85610; 86301; 93005; 93010; 93306-TC; 93880-TC; 99285-25; J1644; J7030

== ENCOUNTER 2019-04-15 05:03 | Day surgery (SDC) | payer OTHER ==
[2019-04-14 11:55] VITALS: BMI 28.9
[2019-04-15] MEDS ORDERED: MIDAZOLAM HCL 2 MG/2 ML SINGLE DOSE VIAL ONE (15:31)
[2019-04-15] MEDS ORDERED: PROPOFOL 20 ML ONE (15:31)
[2019-04-15] MEDS ORDERED: HEPARIN NA (PORCINE) 5,000 UNITS/ML 1ML VIAL ONE ×2 (15:33)
--- NOTE | 2019-04-15 15:37 | HP ---
Satellite H - Chief Complaint History of Present Illness: 83 year old man with renal failure. He needs access creation for hemodialysis. - Past Medical History Allergies/Adverse Reactions: Allergies Allergy/AdvReac Type Severity Reaction Status Date / Time No Known Drug Allergies Allergy Verified 04/15/19 13:05 Cardiovascular: Yes: CAD, HTN, Hyperlipdemia - Current Medications Current Medications: Home Medications Medication Instructions Recorded Aspirin [ASA -] 81 mg PO DAILY 01/10/14 Bimatoprost [Lumigan] 1 drop OU BID 01/10/14 Brimonidine Tartrate [Alphagan 1 drop OU DAILY 01/10/14 0.15% -] Cholecalciferol (Vitamin D3) 2,000 unit PO DAILY 01/10/14 [Vitamin D3] Dorzolamide HCl/Timolol Maleat 5 ml OU BID 01/10/14 [Cosopt Eye Drops] Tamsulosin HCl 0.4 mg PO DAILY 01/10/14 Vitamin A/Vitamin D2 [Maldivian 1 each PO DAILY 01/10/14 Cod Liver Oil Sfgl] Clopidogrel Bisulfate [Plavix -] 75 mg PO DAILY #30 tablet MDD 1 05/10/18 Isosorbide Mononitrate [Imdur -] 30 mg PO BID #30 tab.sr.24h MDD 2 05/10/18 Metoprolol Tartrate [Lopressor -] 25 mg PO BID #30 tablet MDD 2 05/10/18 hydrALAZINE HCL [Apresoline -] 25 mg PO BID #30 tablet MDD 2 05/10/18 Diltiazem Cd [Cardizem Cd -] 120 mg PO DAILY #30 cap.cd.24h 10/27/18 Furosemide [Lasix -] 80 mg PO DAILY #30 tablet 10/27/18 Iron Ps Complex/B12/Folic Acid 1 each PO BID 04/14/19 [Poly-Iron 150 Forte Capsule] Satellite Physical Exam - Physical Examination Vital Signs: Vital Signs Period Temp Pulse Resp BP Sys/Stinson Pulse Ox Last 24 Hr 99.0 F 75 16 109/63 99 General Appearance: Well Nourished ENT: Clear Lung: Clear to auscultation Heart: Regular rate & rhythm Abdomen: Soft Extremities: No edema Satellite Impression/Plan - Impression/Plan Impression: renal failure Operative Procedure: Creation AV fistula Date to be Performed: 04/15/19
[2019-04-15] MEDS ORDERED: PAPAVERINE HCL 30 MG/1 ML 10 ML VIAL NR ONE (15:59)
[2019-04-15] MEDS ORDERED: ceFAZolin SODIUM 1 GM VIAL IVPB ONE (16:15)
[2019-04-15] MEDS ORDERED: ceFAZolin SODIUM 1 GM VIAL ONE (16:24)
[2019-04-15] MEDS ORDERED: LIDOCAINE HCL 1%, 10 MG/ML (20ML VIAL) INF ONE ×2 (16:54)
[2019-04-15] MEDS ORDERED: POVIDONE-IODINE OINTMENT 10% - 28.4 GM TUBE ONE (16:57)
--- NOTE | 2019-04-15 18:15 | OP ---
Operative Note - Note: Operative Date: 04/15/19 Pre-Operative Diagnosis: Renal failure Operation: Placement AV graft left arm Findings: Radial artery origin in axillary artery Implants: 4-7 mm Propaten Post-Operative Diagnosis: Same as Pre-op Surgeon: Aurelio Espinoza [employer] Electric Locomotive: Maru Richardson Anesthesia: Fractional Estimated Blood Loss (mls): 30
[2019-04-15] MEDS ORDERED: oxyCODONE HCL 5 MG TABLET PO PRN (18:16)
[2019-04-15] MEDS ORDERED: ONDANSETRON 4 MG/2 ML VIAL IVPUSH PRN (18:18)
[2019-04-15 19:01] VITALS: TEMP 97.7
[2019-04-15 19:46] VITALS: BP 140/60; PULSE 68
--- NOTE | 2019-04-19 07:35 | OP ---
DATE OF OPERATION: 04/15/2019 SURGEON: Aurelio Espinoza MD LASTING ROOM MACHINE OPERATOR: KERLINE Stern PROCEDURE: Placement of arteriovenous graft, left arm. PREOPERATIVE DIAGNOSIS: Renal failure. POSTOPERATIVE DIAGNOSIS: Renal failure. ANESTHESIA: Fractional. OPERATIVE FINDINGS: There was origin of the radial artery from the axillary artery. Otherwise, the axillary artery and vein were normal diameter. OPERATIVE PROCEDURE: Following routine patient identification, with side and site verification, intravenous sedation was established. The left arm and axilla were prepped with ChloraPrep. A time-out was performed. Lidocaine 1% was infiltrated in the axilla, and an incision was made and carried into the subcutaneous plane using cautery for hemostasis. The axillary artery and vein were identified and mobilized from the surrounding tissues. The artery was mobilized proximal to the origin of the radial artery. The vessels were secured with vessel loops. A counterincision incision was then made proximal to the antecubital crease and a curved metal tunneler was passed between the 2 incisions over the anterior aspect of the arm. A 4-7 mm Propaten Vascular Graft was then passed through the tunneler, with care not to twist it. The tunneler was placed along the medial aspect of the arm and the graft passed back to create a loop configuration. The artery was occluded with vessel loops and opened on exposed surface with a 6-mm arteriotomy. The small end of the graft was beveled and anastomosed to the side of the artery with running suture of 6-0 Prolene. The artery was allowed to back bleed and flush, and was filled with heparin solution. Then the suture line was completed. The graft was occluded with a vascular clamp and the artery was released. Bleeding from the suture line was controlled with Surgicel. The vein was then occluded with a small bulldog clamp and vessel loop, and opened on exposed surface with a 15-mm venotomy. The large end of the graft was beveled and anastomosed to the side of the artery with a running suture of 6-0 Prolene. Prior to completion of the suture line, the vein was allowed to back bleed and was flushed with heparin and the graft was flushed. The suture line was completed. Vessels were released. There was good flow through the graft with a palpable pulse. When hemostasis was adequate, the wounds were closed with interrupted suture of 3-0 Vicryl and skin cameron. Sterile dressings were applied. The patient was taken to the recovery room in stable condition. Carlos TAVERAS/[id number]
== END 2019-04-15 20:20 | disposition home or self-care (01) ==
LOC: JASU-SURG 05:03
PROVIDERS: ATTEND Surgery
PROC: 03160JD Bypass Left Axillary Artery to Upper Arm Vein with Synthetic Substitute, Open Approach (ICD-10-PCS; principal; 2019-04-15 15:30)
DX: I12.0 Hypertensive chronic kidney disease with stage 5 chronic kidney disease or end stage renal disease (principal); N18.6 End stage renal disease
CPT/HCPCS: 94760; J1644